=== PATIENT | male | born 1985 | race Caucasian/White ===

== ENCOUNTER 2022-12-21 00:25 | Inpatient (IN) | payer OTHER, SELFPAY ==
[2022-12-21] VITALS (18 sets, daily range): BP systolic 118–162; BP diastolic 68–114; PULSE 74–120; RESP 16–20; TEMP 36.6–37.7; O2SAT 92–100; BMI 23.6; BMI 25.2
--- NOTE | ~2022-12-21 | FL_ITS ---
PROCEDURE: IR JOINT ASPIRATION OF left hip CLINICAL INFORMATION: Left hip pain. Elevated white blood cell count. COMPARISON: Previous CT of the left femur and left hip x-ray from earlier the same day TECHNIQUE: Procedure and risks and benefits including bleeding and infection were discussed with the patient and informed consent was obtained. Left hip was prepped and draped in the usual sterile fashion. The skin and soft tissues were anesthetized with 1% lidocaine plain. Using fluoroscopic guidance and a 22-gauge spinal needle, access to the left hip joint was obtained. 1 mL of Omnipaque 300 was injected fluoroscopically confirming adequate placement in the joint space. Scant less than 1 mL of yellow clear fluid was removed. Diagnostic specimen was sent. FINDINGS: Images demonstrate needle placement and contrast injection of the left hip joint. FLUOROSCOPY TIME: 28 seconds. Total dose 24 mgy. DAP 77 dgray per centimeter squared. 1 saved fluoroscopic image FL/FL guided asp or inj major jt IMPRESSION: Fluoroscopy-guided left hip aspiration.
--- NOTE | ~2022-12-21 | XR_ITS ---
EXAMINATION: XR HIP, LEFT CLINICAL INFORMATION: Pain. COMPARISON: None available. TECHNIQUE: Two views of the left hip. FINDINGS: A left femoral mikel and proximal femoral screw are in place. There is no acute fracture. The left hip joint space is maintained. The soft tissues are unremarkable. XR/XR hip LT w PEL1V IMPRESSION: No significant abnormality identified..
--- NOTE | ~2022-12-21 | CT_ITS ---
EXAMINATION: CT FEMUR LT W IV CONTRAST CLINICAL INFORMATION: Pain. Concern for necrotizing fasciitis. COMPARISON: None available. TECHNIQUE: Contiguous axial images of the left femur performed after the administration of 85 mL of Omnipaque 300. This CT examination was performed using dose optimization techniques as appropriate, variously including the following: *Automated exposure control *Adjustment of mA and/or kV according to patient size (this includes techniques or standardized protocols for targeted exams where dose is matched to indication/reason for exam; i.e. extremities or head) *Use of iterative reconstruction technique DLP: 128 mGy-cm FINDINGS: There is a femoral mikel and proximal femoral screw in place. There is a healed distal femoral fracture. There is no acute fracture. There is a moderate left hip joint effusion. There is no fracture. The soft tissues are unremarkable. There is no subcutaneous emphysema significant edema. The visualized intrapelvic structures are unremarkable. CT/CT femur LT w IV con IMPRESSION: No acute osseous abnormality. No subcutaneous emphysema. There is a left hip joint effusion.
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
[2022-12-21] MEDS: Morphine Sulfate 4 MG/ML CARTRIDGE IVPUSH (01:32)
[2022-12-21] MEDS: diazePAM 10 MG/2 ML CARTRIDGE 2.5 MG IVPUSH (01:53)
[2022-12-21 02:11] LABS: MANUAL DIFF FLAG NO
[2022-12-21 02:13] LABS: Basophils Absolute Auto 0.1 X10*3/uL (0.0-0.2); Basophils Percent Auto 0.3 % (0-2); Eosinophils Percent Auto 0.1 % (0-4); Hematocrit 42.5 % (42.0-52.0); Hemoglobin 14.9 g/dl (14.0-18.0); Imm Gran Abs Auto 0.04 X10*3/uL (0.00-0.03); Imm Gran Pct Auto 0.3 % (0.0-0.4); Lymphocytes Absolute Auto 1.1 X10*3/uL (1.2-4.9); Mean Corpuscular HGB Conc 35.1 g/dl (31.0-36.0); Mean Corpuscular Hemoglobin 31.7 pg (27.0-33.0); Mean Corpuscular Volume 90.4 fL (80.0-98.0); Mean Platelet Volume 10.1 fL (9.4-12.4); Monocytes Percent Auto 6.2 % (2-11); Neutrophils Absolute Auto 13.2 x10*3/uL (2.0-8.3); Neutrophils Percent Auto 86.1 % (45-73); Platelet Count 261 X10*3/uL (160-400); Red Cell Distribution Width 13.1 % (11.0-16.0); White Blood Count 15.4 X10*3/uL (4.8-10.8)
[2022-12-21 02:27] LABS: Anion Gap 14 (12-20); Blood Urea Nitrogen 20 mg/dL (9-16); Calcium 10.1 mg/dL (8.4-10.2); Carbon Dioxide 21 mmol/L (22-29); Chloride 109 mmol/L (96-108); Estimated Glomerular Filt Rate > 60; Glucose Random 126 mg/dL (60-115); Sodium 140 mmol/L (135-145)
[2022-12-21 02:50] LABS: Erythrocyte Sedimentation Rate 7 MM/HR (0-15)
[2022-12-21] MEDS: diphenhydrAMINE HCL 50 MG/ML VIAL 25 MG IVPUSH (03:34)
[2022-12-21] MEDS: 0.9 % Sodium Chloride 1,000 ML 999 ML IV (03:34)
[2022-12-21] MEDS: HYDROmorphone HCl 1 MG/ML SYRINGE IVPUSH ×2 (03:35→07:49)
[2022-12-21] MEDS: iohexoL 350 MG/ML 100 ML INFUS..BTL 85 ML IV (04:19)
--- NOTE | 2022-12-21 04:47 | MHC.EDTECH ---
Hourly rounds and vitals completed,patient's blood pressure is elevated at 157/101 RN Melita was made aware. Call pereira at bedside
--- NOTE | 2022-12-21 07:35 | PC.NURSE ---
Assumed care of this patient at 0700. Patiently resting quietly in bed at this time. Consult to orthopedics placed. No apparent distress.
[2022-12-21 08:07] LABS: INTERNATIONAL NORM RATIO 1.1 (0.9-1.1); Prothrombin Time 13.3 SEC (11.1-13.3)
[2022-12-21 08:09] LABS: Partial Thromboplastin Time 29.8 SEC (26.0-36.4)
--- NOTE | 2022-12-21 08:16 | PC.NURSE ---
A & Ox4. c/o 08/12 pain in L hip, received 1mg IV Dilaudid per order. Tachycardia at 120. Pt resting in bed. No apparent distress.
--- NOTE | 2022-12-21 09:16 | MHC.EDTECH ---
pt belongings list completed.
--- NOTE | 2022-12-21 10:45 | PHA.MEDREC ---
Pharmacy Consult ? Medication Reconciliation Pharmacy has completed the medication reconciliation. Patient states he takes his Humira on Saturdays, last taken 12/12/22
[2022-12-21] MEDS: Ketorolac Tromethamine 30 MG/ML VIAL IVPUSH (11:05)
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
[2022-12-21] MEDS: HYDROmorphone HCl 0.5 MG/0.5 ML SYRINGE IVPUSH (12:59)
--- NOTE | 2022-12-21 13:10 | PC.NURSE ---
pt in 01/12 pain, Dilaudid given PRN per JUN. ruchi cath on, 200 ml output. bladder scan pending, both batteries were and are now charging
--- NOTE | 2022-12-21 13:46 | HO.RADPN ---
RADIOLOGY Narrative Narrative: Left hip aspirated using 22 g spinal needle. Scant less than 1 mL clear yellow fluid aspirated and sent to lab as ordered.
[2022-12-21 14:13] LABS: Monocytes Synovial Fluid 8 %; Neutrophils Synovial Fluid 92 %
[2022-12-21 14:14] LABS: BF Shift QC OK YES
[2022-12-21] MEDS: 0.9 % Sodium Chloride Flush 3 ML SYRINGE IVFLUSH ×2 (15:01→23:47)
--- NOTE | 2022-12-21 16:06 | PC.NURSE ---
straight catheter attempted after bladder scan shows 832 in bladder. cath was unsuccessful, cath coiled and would not advance. With associate artistic director here from [facility], pt will be transferred. Report with update given to Donna MONTERO
--- NOTE | 2022-12-21 16:21 | HO.ANESPROP2 ---
HPI - Anesthesia Eval Consult details Narrative: 36 M for left hip I and D . asthma , EtOH abuse , Crohn's disease [facility] Active Problems Active Problems: All Active Problems (Updated 12/21/22 @ 11:34 by ASHUTOSH Colunga) Effusion of hip joint, left (Acute) Left hip pain (Acute) Past Medical History Medical History Rheumatoid arthritis Asthma Crohn's disease Family History Family history of problems with anesthesia: No Surgical History History of Problems with Anesthesia: No Social History Social History Patient Tobacco Use Status: Never used Tobacco Smoked in Last 30 Days: No Use of substances other than those prescribed or required for medical reasons: No Substance Use Type: Marijuana Are you DNR?: No Advance Directives: No Advance Directives Information Provided: Yes Nutrition Risks: No Nutritional Risk Meds Allergies Allergy/AdvReac Type Severity Reaction Status Date / Time cefaclor [From [facility]] Allergy Unknown Rash Verified 12/21/22 01:12 Pertussis Vaccines Allergy Unknown Hives Verified 12/21/22 01:12 chlorine Allergy Unknown hives Uncoded 12/21/22 01:12 Active Medications: Current Medications Acetaminophen (Acetaminophen 325 Mg Tablet) 650 mg PO Q6H PRN PRN Reason: Pain, Mild (Pain Scale 1-3) Albuterol Sulfate (Albuterol Sulfate 90 Mcg 8 Gm Inhaler) 2 puff INHALE Q4H PRN PRN Reason: Shortness of Breath/Wheezing Docusate Sodium (Docusate Sodium 100 Mg Capsule) 100 mg PO DAILY PRN PRN Reason: Constipation Hydromorphone HCl (Hydromorphone Hcl 0.5 Mg/0.5 Ml Syringe) 0.5 mg IVPUSH Q4H PRN; Protocol PRN Reason: Pain, Severe (Pain Scale 7-10) Last Admin: 12/21/22 12:59 Dose: 0.5 mg Non-Formulary Medication (Adalimumab [Humira(Cf) Pen]) 40 mg SUBCUT Q2W CHET Ondansetron HCl (Ondansetron Hcl 4 Mg/2 Ml Vial) 4 mg IVPUSH Q8H PRN PRN Reason: Nausea and Vomiting Oxycodone HCl (Oxycodone Hcl Immed Release 5 Mg Tablet) 5 mg PO Q6H PRN PRN Reason: Pain, Moderate(Pain Scale 4-6) Sodium Chloride (0.9 % Sodium Chloride Flush 3 Ml Syringe) [facility] Last Admin: 12/21/22 15:01 Dose: 3 ml Home Medications Medication Instructions Recorded Confirmed Last Taken Type acetaminophen 325 mg tablet 650 mg PO Q6H PRN Pain 12/21/22 12/21/22 Unknown History adalimumab 40 mg/0.4 mL 40 mg subcut Q2W 12/21/22 12/21/22 12/12/22 History subcutaneous pen kit (Humira(CF) Pen) ibuprofen 400 mg tablet 400 mg PO Q6H PRN Pain (Scale 12/21/22 12/21/22 Unknown History Score 1-3) oxymetazoline 0.05 % nasal spray 2 spray intranasal Q12H PRN Nasal 12/21/22 12/21/22 Unknown History Congestion Exam Exam Date and Time: December 21, 2022 1621 Height,Weight and Vital Signs: Height 5 ft 9 in Weight 72.575 kg Last Vital Signs Temp 98.9 F 12/21/22 15:01 Pulse 77 12/21/22 15:01 Resp 16 12/21/22 15:01 BP 141/86 H 12/21/22 15:01 Pulse Ox 95 12/21/22 15:01 O2 Del Method Room Air 12/21/22 15:01 Pertinent Lab Results Pertinent Lab Results: Laboratory Tests 12/21/22 12/21/22 12/21/22 02:06 02:07 07:56 WBC 15.4 H RBC 4.70 Hgb 14.9 Hct 42.5 MCV 90.4 MCH 31.7 MCHC 35.1 RDW 13.1 Plt Count 261 MPV 10.1 Immature Gran % (Auto) 0.3 Neut % (Auto) 86.1 H Lymph % (Auto) 7.0 L Dent % (Auto) 6.2 Eos % (Auto) 0.1 Baso % (Auto) 0.3 Lymph # (Auto) 1.1 L Dent # (Auto) 1.0 Eos # (Auto) 0.0 Baso # (Auto) 0.1 Abs Immat Gran (auto) 0.04 H Absolute Neuts (auto) 13.2 H Absolute Nucleated RBC 0.000 Nucleated RBC % (auto) 0.0 ESR 7 PT 13.3 INR 1.1 APTT 29.8 Sodium 140 Potassium 4.0 Chloride 109 H Carbon Dioxide 21 L Anion Gap 14 BUN 20 H Creatinine 1.16 Estim Creat Clear Calc 88.0 Estimated GFR > 60 Random Glucose 126 H Calcium 10.1 C-Reactive Protein 3.10 H Fl Pathologist Review Synovial Source Synovial WBC Synovial RBC Synovial Neutrophils Synovial Monocytes Synovial Glucose Synovial Lyme DNA (PCR) Lyme (Rapid PCR) Src 12/21/22 12/21/22 12:40 Unknown WBC RBC Hgb Hct MCV MCH MCHC RDW Plt Count MPV Immature Gran % (Auto) Neut % (Auto) Lymph % (Auto) Dent % (Auto) Eos % (Auto) Baso % (Auto) Lymph # (Auto) Dent # (Auto) Eos # (Auto) Baso # (Auto) Abs Immat Gran (auto) Absolute Neuts (auto) Absolute Nucleated RBC Nucleated RBC % (auto) ESR PT INR APTT Sodium Potassium Chloride Carbon Dioxide Anion Gap BUN Creatinine Estim Creat Clear Calc Estimated GFR Random Glucose Calcium C-Reactive Protein Fl Pathologist Review SEE NOTE Synovial Source left hip Synovial WBC TNP Synovial RBC TNP Synovial Neutrophils 92 Synovial Monocytes 8 Synovial Glucose TNP Synovial Lyme DNA (PCR) TNP Lyme (Rapid PCR) Src TNP Airway Mallampati Class: III Loose/Missing/Broken Teeth: Yes (poor dentition overall , chipped teeth multiple) Assessment and Plan Assessment Anesthesia Assessment: Anesthesia Plan Discussed and Chart Reviewed Final Anesthetic Review Family History of Problems with Anesthesia: No History of Problems with Anesthesia: No NPO: Yes ASA Class: III and Emergency Final Preanesthetic Review: Meds/Allgs Chart Reviewed, Consent Obtained/Reviewed and Anes Risks/Benef Reviewed Patient Risk: Intermediate Procedure Risk: Intermediate Anesthetic Plan Anesthetic Plan: GA and Agree w/ Assess. and Plan Disposition: Standard PACU
--- NOTE | 2022-12-21 16:27 | MHC.SHP ---
Pre-Procedural Eval Section A Date of Service: 12/21/22 The patient is an INPATIENT: Yes Changes since office visit: No Cold of Flu in the past 2 weeks, No New Medical Problems, No Changes in Medication and No Patient answered all questions The History & Physical has been completed within 30 days and I have reviewed it.: Yes Section B Chief Complaint: join effusion, ?sepsis Allergies: Allergies Allergy/AdvReac Type Severity Reaction Status Date / Time cefaclor [From Ceclor] Allergy Unknown Rash Verified 12/21/22 01:12 Pertussis Vaccines Allergy Unknown Hives Verified 12/21/22 01:12 chlorine Allergy Unknown hives Uncoded 12/21/22 01:12 Plan I have reviewed the history and physical and performed a pertinent physical examination on my patient. No changes have occurred unless specified. Time Spent With Patient Time: Total time managing care of this patient today ____ minutes.
--- NOTE | 2022-12-21 16:29 | P.HPOP_ITS ---
History of Present Illness History of Present Illness Date of Service: 12/21/22 Chief complaint: join effusion, ?sepsis Narrative: Sky Be is a 36 year old male with a 48 hour h/o left hip pain. He presents with inability to ambulate, pain and taccycardia. He denies injury. His pain localizes to his left anterior hip. Review of Systems 2 Constitutional: Constitutional: Reports as per HPI Eyes: Eyes: Reports no additional eye complaints ENT: Reports system reviewed and no additional complaints, except as documented Cardiovascular: Cardiovascular: Reports no additional cardiovascular complaints Respiratory: Respiratory: Reports no additional respiratory complaints Gastrointestinal: Comments: Crohn's [facility] Past Medical History Medical History Rheumatoid arthritis Asthma Crohn's disease Social History Social History Patient Tobacco Use Status: Never used Tobacco Smoked in Last 30 Days: No Use of substances other than those prescribed or required for medical reasons: No Substance Use Type: Marijuana Advance Directives: No Advance Directives Information Provided: Yes Nutrition Risks: No Nutritional Risk Meds Allergies Allergy/AdvReac Type Severity Reaction Status Date / Time cefaclor [From Ceclor] Allergy Unknown Rash Verified 12/21/22 01:12 Pertussis Vaccines Allergy Unknown Hives Verified 12/21/22 01:12 chlorine Allergy Unknown hives Uncoded 12/21/22 01:12 Active Medications: Current Medications Acetaminophen (Acetaminophen 325 Mg Tablet) 650 mg PO Q6H PRN PRN Reason: Pain, Mild (Pain Scale 1-3) Albuterol Sulfate (Albuterol Sulfate 90 Mcg 8 Gm Inhaler) 2 puff INHALE Q4H PRN PRN Reason: Shortness of Breath/Wheezing Docusate Sodium (Docusate Sodium 100 Mg Capsule) 100 mg PO DAILY PRN PRN Reason: Constipation Hydromorphone HCl (Hydromorphone Hcl 0.5 Mg/0.5 Ml Syringe) 0.5 mg IVPUSH Q4H PRN; Protocol PRN Reason: Pain, Severe (Pain Scale 7-10) Last Admin: 12/21/22 12:59 Dose: 0.5 mg Non-Formulary Medication (Adalimumab [Humira(Cf) Pen]) 40 mg SUBCUT Q2W CHET Ondansetron HCl (Ondansetron Hcl 4 Mg/2 Ml Vial) 4 mg IVPUSH Q8H PRN PRN Reason: Nausea and Vomiting Oxycodone HCl (Oxycodone Hcl Immed Release 5 Mg Tablet) 5 mg PO Q6H PRN PRN Reason: Pain, Moderate(Pain Scale 4-6) Sodium Chloride (0.9 % Sodium Chloride Flush 3 Ml Syringe) 3 ml IVFLUSH QSHIFT [facility] Last Admin: 12/21/22 15:01 Dose: 3 ml Home Medications Medication Instructions Recorded Confirmed Last Taken Type acetaminophen 325 mg tablet 650 mg PO Q6H PRN Pain 12/21/22 12/21/22 Unknown History adalimumab 40 mg/0.4 mL 40 mg subcut Q2W 12/21/22 12/21/22 12/12/22 History subcutaneous pen kit (Humira(CF) Pen) ibuprofen 400 mg tablet 400 mg PO Q6H PRN Pain (Scale 12/21/22 12/21/22 Unknown History Score 1-3) oxymetazoline 0.05 % nasal spray 2 spray intranasal Q12H PRN Nasal 12/21/22 12/21/22 Unknown History Congestion Physical Exam 2 Vital Signs: Vital Signs: Last Vital Signs Temp 98.9 F 12/21/22 15:01 Pulse 77 12/21/22 15:01 Resp 16 12/21/22 15:01 BP 141/86 H 12/21/22 15:01 Pulse Ox 95 12/21/22 15:01 O2 Del Method Room Air 12/21/22 15:01 BMI result Body Mass Index 23.6 Const: General: cooperative, healthy appearing, no acute distress, well developed and alert HEENT: Head: Yes normal to inspection, Yes normocephalic and Yes atraumatic Mouth: moist mucous membranes Eyes: General: appearance normal, both eyes and all related structures EOM: EOMs intact bilaterally Chest: Other: no audible wheezing. Resp: Other: No audible wheezing Effort & Inspection: normal respiratory effort Cardio: Other: Radial pulse palpable with no rythmic abnormalities Back/Spine/Pelvis: Cervical Spine: normal cervical lordosis Skin: General skin exam: no rashes or lesions noted Neuro: General: no focal motor deficits Extrem: Other: Externally rotated left hip exquisite pain with log roll cannot flex hip without severe pain Psych: Appearance: grossly normal and well kempt Mental Status: mental status grossly normal Speech and movement: Normal speech and movement present Affect: normal affect Attitude: cooperative Results Labs 12/21/22 02:07 12/21/22 02:06 Labs: Abnormal lab results 12/21/22 12/21/22 Range/Units 02:06 02:07 WBC 15.4 H (4.8-10.8) X10*3/uL Neut % (Auto) 86.1 H (45-73) % Lymph % (Auto) 7.0 L (20-40) % Lymph # (Auto) 1.1 L (1.2-4.9) X10*3/uL Abs Immat Gran (auto) 0.04 H (0.00-0.03) X10*3/uL Absolute Neuts (auto) 13.2 H (2.0-8.3) x10*3/uL Chloride 109 H (96-108) mmol/L Carbon Dioxide 21 L (22-29) mmol/L BUN 20 H (9-16) mg/dL Random Glucose 126 H (60-115) mg/dL C-Reactive Protein 3.10 H (< or = 0.50) mg/dL H & H 12/21/22 Range/Units 02:07 Hgb 14.9 (14.0-18.0) g/dl Hct 42.5 (42.0-52.0) % Coagulation 12/21/22 Range/Units 07:56 INR 1.1 (0.9-1.1) All other labs normal. Diagnostic results Hip CT: image reviewed (left hip effusion) Assessment and Plan (1) Effusion of hip joint, left: Status: Acute Plan I reviewed aspiration and labs. Reported PMNs of 92% with no cell count available. He has elevated WBC and CRP but ESR nl. Cannot exclude bacterial infection and benefits of surgery outweigh risks. I recommend incision and drainage with arthrotomy left hip. I discussed the risks benefits and alternatives including but not limited to the risk of pain, nerve injury, infection, stiffness, need for further surgery as well as potential medical complications. Patient expressed understanding and we will proceed forward accordingly. Time Spent With Patient Time: Total time managing care of this patient today ____ minutes. Quality Stroke Does the patient have a stroke diagnosis?: No VTE Prior VTE?: No VTE Risk Level:: Medical - moderate - high VTE Device Contraindication: N/A - Device Ordered VTE Drug Contraindication: Treatment Not Indicated Procedures Date of Service Date of Service: 12/21/22
--- NOTE | 2022-12-21 17:52 | PM.OP ---
Brief Operative Note Date of Service: 12/21/22 Pre-op diagnosis: Septic left hip Post-op diagnosis: same Procedure: Incision and drainage left hip Implants: 7F GIANNI drain Surgeon: Amari Lund MD Anesthesia: GLMA and local Was an Paid Search Manager used for this Procedure?: No Estimated blood loss (mL): 25 IV fluids (mL): 750 Pathology: other Condition: stable Disposition: PACU
[2022-12-21] MEDS: Acetaminophen 1,000 MG/100 ML PIGGYBACK 400 MG IV (18:12)
[2022-12-21] MEDS: vancomycin/NS 2,000 MG/500 ML PLAST..BAG 250 MG IV (19:55)
[2022-12-21 20:30] LABS: Appearance Urine Clear; Color Urine Yellow; Glucose Urine UA Negative (Negative); Leukocyte Esterase Urine Negative (Negative); Nitrite Urine Negative (Negative); Specific Gravity - Urine >= 1.030 (1.005-1.025); UMIC TRIGGER UACC YES; Urine Blood Trace (Negative); Urine Ketones Negative (Negative); Urine Protein Trace mg/dL (Neg-Trace)
[2022-12-21 20:35] LABS: Amphetamine Screen Urine Not Detected (Not Detect); Barbiturates, Urine Not Detected (Not Detect); Benzodiazepines Screen Urine POSITIVE (Not Detect); Cannabinoid Screen Urine Not Detected (Not Detect); Cocaine Screen Urine Not Detected (Not Detect); Fentanyl, urine POSITIVE (Not Detect); Opiate Screen Urine POSITIVE (Not Detect); Phencyclidine Screen Urine Not Detected (Not Detect)
[2022-12-21 20:36] LABS: Bacteria Urine None Seen (None Seen); Hyaline Casts Urine 0-2 /LPF (0-2); Squamous Epithelial Cell Urine 0-2 /HPF (0-2); WBC Urine 0-5 /HPF (0-5)
[2022-12-21 21:55] LABS: Vancomycin Trough 62.4 mcg/mL (10.0-20.0)
[2022-12-21] MEDS: oxyCODONE HCl Immed Release 5 MG TABLET PO (23:58)
[2022-12-22 03:27] VITALS: BP 129/73; PULSE 74; RESP 18; TEMP 38.5; O2SAT 97
[2022-12-22] MEDS: Acetaminophen 325 MG TABLET 650 MG PO ×2 (03:30→09:47)
[2022-12-22] MEDS: HYDROmorphone HCl 0.5 MG/0.5 ML SYRINGE IVPUSH ×3 (03:37→15:50)
[2022-12-22 05:30] VITALS: TEMP 36.8
[2022-12-22 06:31] LABS: Alanine Aminotransferase 45 U/L (0-40); Albumin Level 3.4 g/dL (3.5-5.0); Alkaline Phosphatase 29 U/L (39-117); Anion Gap 13 (12-20); Aspartate Amino Transferase 32 U/L (5-37); Bilirubin Total 1.1 mg/dL (0.0-1.0); Blood Urea Nitrogen 13 mg/dL (9-16); Carbon Dioxide 22 mmol/L (22-29); Chloride 107 mmol/L (96-108); Creatinine Clr Calc Pharmacy 114.7; Estimated Glomerular Filt Rate > 60; Glucose Random 96 mg/dL (60-115); Potassium 4.2 mmol/L (3.3-5.1); Sodium 138 mmol/L (135-145); Total Protein 6.1 g/dL (6.5-8.0)
[2022-12-22] MEDS: 0.9 % Sodium Chloride Flush 3 ML SYRINGE IVFLUSH ×2 (07:23→14:44)
[2022-12-22 07:49] VITALS: BP 124/85; PULSE 93; RESP 16; TEMP 37.3; O2SAT 96
--- NOTE | 2022-12-22 08:01 | PM.PNORT ---
Subjective Subjective Date of Service: 12/22/22 Interval history: POD 1 s/p LEft hip open I&D no overnight events resting in bed denies cp, palpitations, sob Physical Exam Vital Signs: Vital Signs: Last Vital Signs Temp 99.1 F 12/22/22 07:49 Pulse 93 12/22/22 07:49 Resp 16 12/22/22 07:49 BP 124/85 12/22/22 07:49 Pulse Ox 96 12/22/22 07:49 O2 Del Method Room Air 12/22/22 07:49 O2 Flow Rate 2 12/21/22 20:00 BMI result Body Mass Index 25.2 Const: General: cooperative, healthy appearing and no acute distress Resp: Effort & Inspection: normal respiratory effort and able to speak in complete sentences Cardio: Rate: regular rate Peripheral pulses: Peripheral pulses 2+ throughout GI: Palpation (GI): Soft to palpation Skin: General skin exam: no rashes or lesions noted Extrem: Other: left hip pain with log roll, unable to SLR, able to dorsi and plantar felx, nvi Procedures Date of Service Date of Service: 12/22/22 Progress Note: A&P Assessment and plan (1) Effusion of hip joint, left: Status: Acute Assessment and Plan: cont pain mgmnt cont abx pending cultures PT for gentle wbat dispo pending labs Time Spent With Patient Time: Total time managing care of this patient today ____ minutes. Quality Stroke Does the patient have a stroke diagnosis?: No VTE Prior VTE?: No VTE Risk Level:: Medical - moderate - high VTE Device Contraindication: N/A - Device Ordered VTE Drug Contraindication: Treatment Not Indicated
[2022-12-22] MEDS: vancomycin HCL 1,250 MG in 0.9 % Sodium Chloride 250 ML 166.67 MG IV ×2 (08:04→21:03)
[2022-12-22] MEDS: oxyCODONE HCl Immed Release 5 MG TABLET PO ×3 (08:05→22:43)
--- NOTE | 2022-12-22 10:59 | PC.NURSE ---
christian cath removed at 1100 pt dtv at 1700
--- NOTE | 2022-12-22 11:43 | HO.POSTANES ---
Post Anesthesia Evaluation Post Anesthesia Evaluation Date of Service: 12/22/22 Vital Signs: Vital Signs Temp Pulse Resp BP Pulse Ox O2 Del Method 12/22/22 07:49 99.1 F 93 16 124/85 96 Room Air 12/22/22 05:30 98.2 F 12/22/22 03:27 101.3 F H 74 18 129/73 97 Room Air 12/21/22 23:51 97.9 F 111 H 18 139/89 98 Nasal Cannula Anesthesia: General Mental Status: Awake Pain Control: Satisfactory Nausea/Vomiting: None Hydration: Adequate Anesthesia-Related Issues: No Anes. Related Issues
--- NOTE | 2022-12-22 12:04 | MHC.CM.PN ---
CM MET WITH PT AT BEDSIDE. INDEPENDENT AND WORKS F/T FROM HOME. +COVID [facility] NO HCP, WILLING TO DO ONE NO PCP, [facility] BROCHURE PROVIDED. DP: HOME, NO SERVICES ANTICIPATED. WILL NEED SHUTTLE/LYFT RIDE HOME. CM WILL CONTINUE TO FOLLOW FOR ANY CHANGE IN DC NEEDS/PLAN.
--- NOTE | 2022-12-22 14:08 | PM.UROCN ---
History of Present Illness Consult details Consult date: 12/22/22 Narrative: Called for urinary retention Shun is a 36 year old male history of rheumatoid arthritis, Crohns, on immunospressive meds, sp I and D left hip 12/21/22, needed christian for urinary retention post op. Pt denies problems with urination in the past. Denies dysuria, hematuria, urgency. Voiding trial this afternoon, pt voided 350 mL. Bladder scan PVR 7 mL Urinary retention post ortho procedure likely related to pain meds/anesthesia. FU prn Review of Systems Review of Systems: 10 point ROS negative other than stated in HPI [facility] Past Medical History Medical History Rheumatoid arthritis Asthma Crohn's disease Social History Social History Household Members: None Housing: Apartment Do you presently have visiting nurse or other home services: No Patient Tobacco Use Status: Never used Tobacco Substance Use Type: Marijuana service: No Meds Allergies Allergy/AdvReac Type Severity Reaction Status Date / Time cefaclor [From Ceclor] Allergy Unknown Rash Verified 12/21/22 01:12 Pertussis Vaccines Allergy Unknown Hives Verified 12/21/22 01:12 chlorine Allergy Unknown hives Uncoded 12/21/22 01:12 Active Medications: Current Medications Acetaminophen (Acetaminophen 325 Mg Tablet) 650 mg PO Q6H PRN PRN Reason: Pain, Mild (Pain Scale 1-3) Last Admin: 12/22/22 09:47 Dose: 650 mg Albuterol Sulfate (Albuterol Sulfate 90 Mcg 8 Gm Inhaler) 2 puff INHALE Q4H PRN PRN Reason: Shortness of Breath/Wheezing Docusate Sodium (Docusate Sodium 100 Mg Capsule) 100 mg PO DAILY PRN PRN Reason: Constipation Hydromorphone HCl (Hydromorphone Hcl 0.5 Mg/0.5 Ml Syringe) 0.5 mg IVPUSH Q4H PRN; Protocol PRN Reason: Pain, Severe (Pain Scale 7-10) Last Admin: 12/22/22 09:47 Dose: 0.5 mg Hydromorphone HCl (Hydromorphone Hcl 0.5 Mg/0.5 Ml Syringe) 0.25 mg IVPUSH Q5M PRN; Protocol PRN Reason: Pain, Severe (Pain Scale 7-10) Vancomycin HCl 1,250 mg/ (Sodium Chloride) 250 mls @ 166.667 mls/hr IV Q12H [facility] Last Infusion: 12/22/22 09:47 Dose: Infused Non-Formulary Medication (Adalimumab [Humira(Cf) Pen]) 40 mg SUBCUT Q2W CHET Ondansetron HCl (Ondansetron Hcl 4 Mg/2 Ml Vial) 4 mg IVPUSH Q8H PRN PRN Reason: Nausea and Vomiting Oxycodone HCl (Oxycodone Hcl Immed Release 5 Mg Tablet) 5 mg PO Q6H PRN PRN Reason: Pain, Moderate(Pain Scale 4-6) Last Admin: 12/22/22 08:05 Dose: 5 mg Pharmacy Consult (Consult Rx Vancomycin Dosing) 1 each MISCELLANE DAILY PRN PRN Reason: Consult order Sodium Chloride (0.9 % Sodium Chloride Flush 3 Ml Syringe) 3 ml IVFLUSH QSHIFT [facility] Last Admin: 12/22/22 07:23 Dose: 3 ml Home Medications Medication Instructions Recorded Confirmed Last Taken Type acetaminophen 325 mg tablet 650 mg PO Q6H PRN Pain 12/21/22 12/21/22 Unknown History adalimumab 40 mg/0.4 mL 40 mg subcut Q2W 12/21/22 12/21/22 12/12/22 History subcutaneous pen kit (Humira(CF) Pen) ibuprofen 400 mg tablet 400 mg PO Q6H PRN Pain (Scale 12/21/22 12/21/22 Unknown History Score 1-3) oxymetazoline 0.05 % nasal spray 2 spray intranasal Q12H PRN Nasal 12/21/22 12/21/22 Unknown History Congestion Physical Exam Vital Signs: Vital Signs: Last Vital Signs Temp 99.1 F 12/22/22 07:49 Pulse 93 12/22/22 07:49 Resp 16 12/22/22 07:49 BP 124/85 12/22/22 07:49 Pulse Ox 96 12/22/22 07:49 O2 Del Method Room Air 12/22/22 07:49 O2 Flow Rate 2 12/21/22 20:00 BMI result Body Mass Index 25.2 Const: General: healthy appearing, no acute distress and well developed Orientation/consciousness: patient oriented x3 HEENT: Head: Yes normocephalic and Yes atraumatic Eyes: Conjunctivae: conjunctivae normal Neck: Neck: Yes normal visual inspection Chest: Chest palpation & inspection: normal inspection of the chest Resp: Effort & Inspection: normal respiratory effort Cardio: Rate: regular rate GI: Inspection: Yes normal to inspection Palpation (GI): Soft to palpation Skin: General skin exam: no rashes or lesions noted Neuro: General: patient oriented x3 Extrem: General: No pedal edema Psych: Appearance: grossly normal Affect: normal affect Results Labs 12/21/22 02:07 12/22/22 05:35 Labs: Abnormal lab results 12/21/22 12/21/22 12/22/22 Range/Units 20:10 21:32 05:35 Total Bilirubin 1.1 H (0.0-1.0) mg/dL ALT 45 H (0-40) U/L Alkaline Phosphatase 29 L (39-117) U/L Total Protein 6.1 L (6.5-8.0) g/dL Albumin 3.4 L (3.5-5.0) g/dL Ur Specific Breeding >= 1.030 H (1.005-1.025) Urine Blood Trace H (Negative) Urine RBC 3-5 H (0-2) /HPF Vancomycin Trough 62.4 H* (10.0-20.0) mcg/mL Urine Opiates Screen POSITIVE H (Not Detect) Urine Fentanyl Screen POSITIVE H (Not Detect) U Benzodiazepines Scrn POSITIVE H (Not Detect) BMP 12/22/22 05:35 Sodium 138 Potassium 4.2 Chloride 107 Carbon Dioxide 22 BUN 13 Creatinine 0.89 Calcium 9.0 D Liver Function 12/22/22 Range/Units 05:35 Total Bilirubin 1.1 H (0.0-1.0) mg/dL AST 32 (5-37) U/L ALT 45 H (0-40) U/L Alkaline Phosphatase 29 L (39-117) U/L Albumin 3.4 L (3.5-5.0) g/dL Urine 12/21/22 Range/Units 20:10 Urine Color Yellow Urine Appearance Clear Urine pH 6.0 (5.0-9.0) Ur Specific Breeding >= 1.030 H (1.005-1.025) Urine Protein Trace (Neg-Trace) mg/dL Urine Glucose (UA) Negative (Negative) mg/dL All other labs normal. Assessment and Plan (1) Urinary retention: Status: Acute Plan Urinary retention post ortho procedure likely related to pain meds/anesthesia. FU prn Time Spent With Patient Time: Total time managing care of this patient today ____ minutes. Procedures Date of Service Date of Service: 12/22/22
--- NOTE | 2022-12-22 14:17 | P.PNIM_ITS ---
Subjective Subjective Date of Service: 12/22/22 Interval History: Pain control adequate. No acute issues postop Review of Systems Denies chest pain Denies shortness of breath Denies nausea vomiting diarrhea Denies fever chills Physical Exam 2 Vital Signs: Vital Signs: Last Vital Signs Temp 99.1 F 12/22/22 07:49 Pulse 93 12/22/22 07:49 Resp 16 12/22/22 07:49 BP 124/85 12/22/22 07:49 Pulse Ox 96 12/22/22 07:49 O2 Del Method Room Air 12/22/22 07:49 O2 Flow Rate 2 12/21/22 20:00 BMI result Body Mass Index 25.2 Const: Other: No acute distress Resp: Other: Clear to auscultation bilaterally no rales rhonchi or wheezes Cardio: Other: No S4; positive S1-S2; no S3 murmurs rubs or gallops GI: Other: Soft nontender nondistended normoactive bowel sounds Neuro: Other: Cranial nerves 2-12 grossly intact as tested. Motor is 5/5 all extremities. Sensation is intact. Cognition appropriate Extrem: Other: No edema bilaterally. Left hip dressing clean dry intact Objective Data Active Medications Acetaminophen (Acetaminophen 325 Mg Tablet) 650 mg PO Q6H PRN PRN Reason: Pain, Mild (Pain Scale 1-3) Last Admin: 12/22/22 09:47 Dose: 650 mg Documented By: TOMÁS Albuterol Sulfate (Albuterol Sulfate 90 Mcg 8 Gm Inhaler) 2 puff INHALE Q4H PRN PRN Reason: Shortness of Breath/Wheezing Docusate Sodium (Docusate Sodium 100 Mg Capsule) 100 mg PO DAILY PRN PRN Reason: Constipation Hydromorphone HCl (Hydromorphone Hcl 0.5 Mg/0.5 Ml Syringe) 0.5 mg IVPUSH Q4H PRN; Protocol PRN Reason: Pain, Severe (Pain Scale 7-10) Last Admin: 12/22/22 09:47 Dose: 0.5 mg Documented By: TOMÁS Hydromorphone HCl (Hydromorphone Hcl 0.5 Mg/0.5 Ml Syringe) 0.25 mg IVPUSH Q5M PRN; Protocol PRN Reason: Pain, Severe (Pain Scale 7-10) Vancomycin HCl 1,250 mg/ (Sodium Chloride) 250 mls @ 166.667 mls/hr IV Q12H [facility] Last Infusion: 12/22/22 09:47 Dose: Infused Documented By: JOSE Non-Formulary Medication (Adalimumab [Humira(Cf) Pen]) 40 mg SUBCUT Q2W CHET Ondansetron HCl (Ondansetron Hcl 4 Mg/2 Ml Vial) 4 mg IVPUSH Q8H PRN PRN Reason: Nausea and Vomiting Oxycodone HCl (Oxycodone Hcl Immed Release 5 Mg Tablet) 5 mg PO Q6H PRN PRN Reason: Pain, Moderate(Pain Scale 4-6) Last Admin: 12/22/22 08:05 Dose: 5 mg Documented By: TOMÁS Pharmacy Consult (Consult Rx Vancomycin Dosing) 1 each MISCELLANE DAILY PRN PRN Reason: Consult order Sodium Chloride (0.9 % Sodium Chloride Flush 3 Ml Syringe) 3 ml IVFLUSH QSHIFT [facility] Last Admin: 12/22/22 07:23 Dose: 3 ml Documented By: JOSE Labs 12/21/22 02:07 12/22/22 05:35 Labs: Laboratory Results - last 24 hr 12/21/22 12/21/22 12/21/22 12:40 20:10 21:32 Anion Gap Estim Creat Clear Calc Estimated GFR Random Glucose Calcium Total Bilirubin AST ALT Alkaline Phosphatase Total Protein Albumin Urine Color Yellow Urine Appearance Clear Urine pH 6.0 Ur Specific [place] >= 1.030 H Urine Protein Trace Urine Glucose (UA) Negative Urine Ketones Negative Urine Blood Trace H Urine Nitrite Negative Ur Leukocyte Esterase Negative Urine RBC 3-5 H Urine WBC 0-5 Ur Squamous Epith Cells 0-2 Urine Bacteria None Seen Hyaline Casts 0-2 Fl Pathologist Review Synovial Source left hip Synovial WBC TNP TNP Synovial RBC TNP TNP Synovial Neutrophils 92 TNP Synovial Lymphocytes TNP Synovial Monocytes 8 TNP Synovial Basophils TNP Synovial Eosinophils TNP Synovial Other Cells TNP Vancomycin Trough 62.4 H* Urine Opiates Screen POSITIVE H Urine Fentanyl Screen POSITIVE H Ur Barbiturates Screen Not Detected Ur Phencyclidine Scrn Not Detected Ur Amphetamines Screen Not Detected U Benzodiazepines Scrn POSITIVE H Urine Cocaine Screen Not Detected U Marijuana (THC) Screen Not Detected 12/21/22 12/22/22 Unknown 05:35 Anion Gap 13 Estim Creat Clear Calc 114.7 Estimated GFR > 60 Random Glucose 96 Calcium 9.0 D Total Bilirubin 1.1 H AST 32 ALT 45 H Alkaline Phosphatase 29 L Total Protein 6.1 L Albumin 3.4 L Urine Color Urine Appearance Urine pH Ur Specific [place] Urine Protein Urine Glucose (UA) Urine Ketones Urine Blood Urine Nitrite Ur Leukocyte Esterase Urine RBC Urine WBC Ur Squamous Epith Cells Urine Bacteria Hyaline Casts Fl Pathologist Review SEE NOTE Synovial Source Synovial WBC Synovial RBC Synovial Neutrophils Synovial Lymphocytes Synovial Monocytes Synovial Basophils Synovial Eosinophils Synovial Other Cells Vancomycin Trough Urine Opiates Screen Urine Fentanyl Screen Ur Barbiturates Screen Ur Phencyclidine Scrn Ur Amphetamines Screen U Benzodiazepines Scrn Urine Cocaine Screen U Marijuana (THC) Screen Microbiology Microbiology Results: Microbiology 12/21/22 Unknown Gram Stain - Final Hip - Hip Anaerobic Culture - Preliminary No growth to date. 12/21/22 Unknown Gram Stain - Final Hip Left Routine Culture - Preliminary No growth to date. 12/21/22 08:41 Blood Culture - Preliminary Blood - Venous No growth after 24 hours. 12/21/22 08:14 Blood Culture - Preliminary Blood - Venous No growth after 24 hours. 12/21/22 Unknown Gram Stain - Final Hip aspirate Anaerobic Culture - Final Gross Specimen Examination - Final Fluid Crystals - Final Joint Fluid Culture - Final Assessment and Plan (1) Effusion of hip joint, left: Status: Acute (2) Urinary retention: Status: Acute (3) Rheumatoid arthritis: Status: Acute Plan 36-year-old male with history of Crohn's disease, possible rheumatoid arthritis, and mild intermittent asthma admitted for joint effusion meeting sirs criteria with intractable pain; taken to OR by Orthopedics. See procedure note for detail 1.Left-sided hip effusion -taken to OR by Orthopedics; I&D left hip done without issue -pain control adequate -continue vanco pending cultures 2.Urinary retention -likely secondary to anesthesia/pain meds -voiding trial complete -appreciate urology input 3.Mild intermittent asthma -no acute exacerbation -albuterol p.r.n. 4.Crohn's disease -no acute flare -not due for Humira until Wednesday DVT prophylaxis- SCPs Full code Requires ongoing hospitalization for IV antibiotic pending cultures Time Spent With Patient Time: Total time managing care of this patient today ____ minutes. Quality Stroke Does the patient have a stroke diagnosis?: No VTE Prior VTE?: No VTE Risk Level:: Medical - moderate - high VTE Device Contraindication: N/A - Device Ordered VTE Drug Contraindication: Treatment Not Indicated
[2022-12-22 15:12] VITALS: BP 123/75; PULSE 109; RESP 20; TEMP 38.1; O2SAT 93
[2022-12-22 18:40] LABS: Vancomycin Random 10.4 mcg/mL (15-20)
[2022-12-22 19:10] VITALS: BP 123/79; PULSE 107; RESP 20; TEMP 36.9; O2SAT 94
[2022-12-23] MEDS: 0.9 % Sodium Chloride Flush 3 ML SYRINGE IVFLUSH ×4 (00:55→19:15)
[2022-12-23 02:29] VITALS: BP 114/70; PULSE 89; RESP 18; TEMP 36.7; O2SAT 98
[2022-12-23] MEDS: oxyCODONE HCl Immed Release 5 MG TABLET PO ×2 (06:10→11:52)
[2022-12-23 06:48] LABS: Creatinine Clr Calc Pharmacy 113.4; Estimated Glomerular Filt Rate > 60
[2022-12-23] MEDS: vancomycin HCL 1,250 MG in 0.9 % Sodium Chloride 250 ML 166.67 MG IV (07:31)
--- NOTE | 2022-12-23 07:38 | PM.PNORT ---
Subjective Subjective Date of Service: 12/23/22 Interval history: POD1 s/p left hip I&D Patient is resting in bed comfortably No overnight events Pain is managed No additional complaints Physical Exam Vital Signs: Vital Signs: Last Vital Signs Temp 98.1 F 12/23/22 02:29 Pulse 89 12/23/22 02:29 Resp 18 12/23/22 02:29 BP 114/70 12/23/22 02:29 Pulse Ox 98 12/23/22 02:29 O2 Del Method Room Air 12/23/22 02:29 O2 Flow Rate 2 12/21/22 20:00 BMI result Body Mass Index 25.2 Const: General: cooperative, healthy appearing and no acute distress Resp: Effort & Inspection: normal respiratory effort and able to speak in complete sentences Cardio: Rate: regular rate Peripheral pulses: Peripheral pulses 2+ throughout GI: Palpation (GI): Soft to palpation Skin: Lesions: no lesions Rashes: no rashes Extrem: Other: Left hip dressing is c/d/i. Able to dorsi/plantar flex. Calf is supple and nontender. Sensation intact. Pedal pulse intact. Drain pulled at bedside New dressings applied Procedures Date of Service Date of Service: 12/23/22 Progress Note: A&P Assessment and plan (1) Effusion of hip joint, left: Status: Acute Plan Continue pain mgmnt begin PT for left hip s/p I&D - WBAT Drain pulled at bedside Pending cultures Dispo planning-Pending PT eval, pain mgmnt Time Spent With Patient Time: Total time managing care of this patient today ____ minutes. Quality Stroke Does the patient have a stroke diagnosis?: No VTE Prior VTE?: No VTE Risk Level:: Medical - moderate - high VTE Device Contraindication: N/A - Device Ordered VTE Drug Contraindication: Treatment Not Indicated
[2022-12-23 08:00] VITALS: BP 110/70; PULSE 99; RESP 17; TEMP 37.2; O2SAT 92
[2022-12-23] MEDS: HYDROmorphone HCl 0.5 MG/0.5 ML SYRINGE IVPUSH ×2 (08:42→19:10)
[2022-12-23] MEDS: Acetaminophen 325 MG TABLET 650 MG PO (11:52)
--- NOTE | 2022-12-23 13:45 | P.PNIM_ITS ---
Subjective Subjective Date of Service: 12/23/22 Interval History: No acute issues overnight. Pain control adequate Review of Systems Denies chest pain Denies shortness of breath Denies nausea vomiting diarrhea Denies fever chills Physical Exam 2 Vital Signs: Vital Signs: Last Vital Signs Temp 99.0 F 12/23/22 08:00 Pulse 99 12/23/22 08:00 Resp 17 12/23/22 08:00 BP 110/70 12/23/22 08:00 Pulse Ox 92 12/23/22 08:00 O2 Del Method Room Air 12/23/22 08:00 O2 Flow Rate 2 12/21/22 20:00 BMI result Body Mass Index 25.2 Const: Other: No acute distress Resp: Other: Clear to auscultation bilaterally no rales rhonchi or wheezes Cardio: Other: No S4; positive S1-S2; no S3 murmurs rubs or gallops GI: Other: Soft nontender nondistended normoactive bowel sounds Neuro: Other: Cranial nerves 2-12 grossly intact as tested. Motor is 5/5 all extremities. Sensation is intact. Cognition appropriate Extrem: Other: No edema bilaterally. Left hip dressing clean dry intact Objective Data Active Medications Acetaminophen (Acetaminophen 325 Mg Tablet) 650 mg PO Q6H PRN PRN Reason: Pain, Mild (Pain Scale 1-3) Last Admin: 12/23/22 11:52 Dose: 650 mg Documented By: ANGIE Albuterol Sulfate (Albuterol Sulfate 90 Mcg 8 Gm Inhaler) 2 puff INHALE Q4H PRN PRN Reason: Shortness of Breath/Wheezing Docusate Sodium (Docusate Sodium 100 Mg Capsule) 100 mg PO DAILY PRN PRN Reason: Constipation Hydromorphone HCl (Hydromorphone Hcl 0.5 Mg/0.5 Ml Syringe) 0.5 mg IVPUSH Q4H PRN; Protocol PRN Reason: Pain, Severe (Pain Scale 7-10) Last Admin: 12/23/22 08:42 Dose: 0.5 mg Documented By: JOSE Hydromorphone HCl (Hydromorphone Hcl 0.5 Mg/0.5 Ml Syringe) 0.25 mg IVPUSH Q5M PRN; Protocol PRN Reason: Pain, Severe (Pain Scale 7-10) Vancomycin HCl 1,250 mg/ (Sodium Chloride) 250 mls @ 166.667 mls/hr IV Q12H [facility] Last Infusion: 12/23/22 11:27 Dose: Infused Documented By: ANGIE Non-Formulary Medication (Adalimumab [Humira(Cf) Pen]) 40 mg SUBCUT Q2W CHET Ondansetron HCl (Ondansetron Hcl 4 Mg/2 Ml Vial) 4 mg IVPUSH Q8H PRN PRN Reason: Nausea and Vomiting Oxycodone HCl (Oxycodone Hcl Immed Release 5 Mg Tablet) 5 mg PO Q6H PRN PRN Reason: Pain, Moderate(Pain Scale 4-6) Last Admin: 12/23/22 11:52 Dose: 5 mg Documented By: ANGIE Pharmacy Consult (Consult Rx Vancomycin Dosing) 1 each MISCELLANE DAILY PRN PRN Reason: Consult order Sodium Chloride (0.9 % Sodium Chloride Flush 3 Ml Syringe) 3 ml IVFLUSH QSHIFT [facility] Last Admin: 12/23/22 07:32 Dose: 3 ml Documented By: JOSE Labs 12/21/22 02:07 12/23/22 05:59 Labs: Laboratory Results - last 24 hr 12/22/22 12/23/22 18:02 05:59 Estim Creat Clear Calc 113.4 Estimated GFR > 60 Random Vancomycin 10.4 L Microbiology Microbiology Results: Microbiology 12/21/22 Unknown Gram Stain - Final Hip Left Routine Culture - Preliminary No growth to date. 12/21/22 08:41 Blood Culture - Preliminary Blood - Venous No growth after 48 hours. 12/21/22 08:14 Blood Culture - Preliminary Blood - Venous No growth after 48 hours. 12/21/22 Unknown Gram Stain - Final Hip - Hip Anaerobic Culture - Preliminary No growth to date. Joint Fluid Culture - Preliminary No growth to date. Assessment and Plan (1) Left hip pain: Status: Acute (2) Urinary retention: Status: Acute Plan 36-year-old male with history of Crohn's disease, possible rheumatoid arthritis, and mild intermittent asthma admitted for joint effusion meeting sirs criteria with intractable pain; taken to OR by Orthopedics. See procedure note for detail 1.Left-sided hip effusion -no acute issues postop -pain control adequate -continue vanco pending cultures... Thus far negative 2.Urinary retention -likely secondary to anesthesia/pain meds -no further issues 3.Mild intermittent asthma -no acute exacerbation -albuterol p.r.n. 4.Crohn's disease -no acute flare -not due for Humira until Wednesday DVT prophylaxis- SCPs Full code Requires ongoing hospitalization for IV antibiotic pending cultures Time Spent With Patient Time: Total time managing care of this patient today ____ minutes. Quality Stroke Does the patient have a stroke diagnosis?: No VTE Prior VTE?: No VTE Risk Level:: Medical - moderate - high VTE Device Contraindication: N/A - Device Ordered VTE Drug Contraindication: Treatment Not Indicated
[2022-12-23 15:22] VITALS: BP 131/85; PULSE 84; RESP 18; TEMP 36.6
--- NOTE | 2022-12-23 15:42 | MHC.CM.PN ---
per rounds pt is not ready for dc
[2022-12-23 18:23] LABS: Vancomycin Random 12.3 mcg/mL (15-20)
[2022-12-23 19:02] VITALS: BP 132/76; PULSE 95; RESP 20; TEMP 38; O2SAT 97
[2022-12-23] MEDS: vancomycin HCL 1,000 MG in 0.9 % Sodium Chloride 250 ML 270 MG IV (19:11)
[2022-12-24] MEDS: oxyCODONE HCl Immed Release 5 MG TABLET PO ×3 (00:57→18:03)
[2022-12-24] MEDS: Acetaminophen 325 MG TABLET 650 MG PO ×2 (00:57→08:37)
[2022-12-24] MEDS: vancomycin HCL 1,000 MG in 0.9 % Sodium Chloride 250 ML 270 MG IV ×2 (03:17→13:17)
[2022-12-24 03:41] VITALS: BP 127/72; PULSE 79; RESP 18; TEMP 36.6; O2SAT 94
[2022-12-24 07:49] VITALS: BP 141/85; PULSE 82; RESP 17; TEMP 37.3; O2SAT 97
[2022-12-24] MEDS: 0.9 % Sodium Chloride Flush 3 ML SYRINGE IVFLUSH ×3 (07:56→19:22)
--- NOTE | 2022-12-24 09:32 | PM.PNORT ---
Subjective Subjective Date of Service: 12/24/22 Interval history: POD2 s/p left hip I&D Patient is resting in bed comfortably No overnight events Pain is managed No additional complaints Physical Exam Vital Signs: Vital Signs: Last Vital Signs Temp 99.1 F 12/24/22 07:49 Pulse 82 12/24/22 07:49 Resp 17 12/24/22 07:49 BP 141/85 H 12/24/22 07:49 Pulse Ox 97 12/24/22 07:49 O2 Del Method Room Air 12/24/22 07:49 O2 Flow Rate 2 12/21/22 20:00 BMI result Body Mass Index 25.2 Const: General: cooperative, healthy appearing and no acute distress Resp: Effort & Inspection: normal respiratory effort and able to speak in complete sentences Cardio: Rate: regular rate Peripheral pulses: Peripheral pulses 2+ throughout GI: Palpation (GI): Soft to palpation Skin: Lesions: no lesions Rashes: no rashes Extrem: Other: Left hip dressing is c/d/i. Able to dorsi/plantar flex. Calf is supple and nontender. Sensation intact. Pedal pulse intact. Procedures Date of Service Date of Service: 12/24/22 Progress Note: A&P Assessment and plan (1) Effusion of hip joint, left: Status: Acute Plan Continue pain mgmnt Continue PT for left hip s/p I&D - WBAT Cultures negative Dispo planning- PT, pain mgmnt, recommend home vs .rehab Time Spent With Patient Time: Total time managing care of this patient today ____ minutes. Quality Stroke Does the patient have a stroke diagnosis?: No VTE Prior VTE?: No VTE Risk Level:: Medical - moderate - high VTE Device Contraindication: N/A - Device Ordered VTE Drug Contraindication: Treatment Not Indicated
[2022-12-24 10:49] LABS: Creatinine Clr Calc Pharmacy 112.3; Estimated Glomerular Filt Rate > 60
[2022-12-24] MEDS: HYDROmorphone HCl 0.5 MG/0.5 ML SYRINGE IVPUSH ×2 (14:17→19:19)
--- NOTE | 2022-12-24 14:23 | P.PNIM_ITS ---
Subjective Subjective Date of Service: 12/24/22 Interval History: Continues to improve. Pain control adequate Review of Systems Denies chest pain Denies shortness of breath Denies nausea vomiting diarrhea Denies fever chills Physical Exam 2 Vital Signs: Vital Signs: Last Vital Signs Temp 99.1 F 12/24/22 07:49 Pulse 82 12/24/22 07:49 Resp 17 12/24/22 07:49 BP 141/85 H 12/24/22 07:49 Pulse Ox 97 12/24/22 07:49 O2 Del Method Room Air 12/24/22 07:49 O2 Flow Rate 2 12/21/22 20:00 BMI result Body Mass Index 25.2 Const: Other: No acute distress Resp: Other: Clear to auscultation bilaterally no rales rhonchi or wheezes Cardio: Other: No S4; positive S1-S2; no S3 murmurs rubs or gallops GI: Other: Soft nontender nondistended normoactive bowel sounds Neuro: Other: Cranial nerves 2-12 grossly intact as tested. Motor is 5/5 all extremities. Sensation is intact. Cognition appropriate Extrem: Other: No edema bilaterally. Left hip dressing clean dry intact Objective Data Active Medications Acetaminophen (Acetaminophen 325 Mg Tablet) 650 mg PO Q6H PRN PRN Reason: Pain, Mild (Pain Scale 1-3) Last Admin: 12/24/22 08:37 Dose: 650 mg Documented By: JOSE Albuterol Sulfate (Albuterol Sulfate 90 Mcg 8 Gm Inhaler) 2 puff INHALE Q4H PRN PRN Reason: Shortness of Breath/Wheezing Docusate Sodium (Docusate Sodium 100 Mg Capsule) 100 mg PO DAILY PRN PRN Reason: Constipation Hydromorphone HCl (Hydromorphone Hcl 0.5 Mg/0.5 Ml Syringe) 0.5 mg IVPUSH Q4H PRN; Protocol PRN Reason: Pain, Severe (Pain Scale 7-10) Last Admin: 12/24/22 14:17 Dose: 0.5 mg Documented By: JOSE Hydromorphone HCl (Hydromorphone Hcl 0.5 Mg/0.5 Ml Syringe) 0.25 mg IVPUSH Q5M PRN; Protocol PRN Reason: Pain, Severe (Pain Scale 7-10) Vancomycin HCl 1,000 mg/ (Sodium Chloride) 270 mls @ 270 mls/hr IV Q8H [facility] Last Infusion: 12/24/22 14:18 Dose: Infused Documented By: JOSE Non-Formulary Medication (Adalimumab [Humira(Cf) Pen]) 40 mg SUBCUT Q2W CHET Ondansetron HCl (Ondansetron Hcl 4 Mg/2 Ml Vial) 4 mg IVPUSH Q8H PRN PRN Reason: Nausea and Vomiting Oxycodone HCl (Oxycodone Hcl Immed Release 5 Mg Tablet) 5 mg PO Q6H PRN PRN Reason: Pain, Moderate(Pain Scale 4-6) Last Admin: 12/24/22 08:37 Dose: 5 mg Documented By: JOSE Pharmacy Consult (Consult Rx Vancomycin Dosing) 1 each MISCELLANE DAILY PRN PRN Reason: Consult order Sodium Chloride (0.9 % Sodium Chloride Flush 3 Ml Syringe) 3 ml IVFLUSH QSHIFT [facility] Last Admin: 12/24/22 13:20 Dose: 3 ml Documented By: JOSE Labs 12/21/22 02:07 12/24/22 05:26 Labs: Laboratory Results - last 24 hr 12/23/22 12/24/22 17:56 05:26 Estim Creat Clear Calc 112.3 Estimated GFR > 60 Random Vancomycin 12.3 L Microbiology Microbiology Results: Microbiology 12/21/22 Unknown Gram Stain - Final Hip Left Routine Culture - Final No growth after 2 days 12/21/22 Unknown Gram Stain - Final Hip - Hip Anaerobic Culture - Preliminary No growth to date. Joint Fluid Culture - Preliminary No growth to date. 12/21/22 08:41 Blood Culture - Preliminary Blood - Venous No growth after 48 hours. 12/21/22 08:14 Blood Culture - Preliminary Blood - Venous No growth after 48 hours. Assessment and Plan (1) Effusion of hip joint, left: Status: Acute Plan 36-year-old male with history of Crohn's disease, possible rheumatoid arthritis, and mild intermittent asthma admitted for joint effusion meeting sirs criteria with intractable pain; taken to OR by Orthopedics. See procedure note for detail 1.Left-sided hip effusion -no acute issues postop -pain control adequate -all cultures negative; will DC vancomycin and follow white count in a.m. 2.Urinary retention -likely secondary to anesthesia/pain meds -no further issues 3.Mild intermittent asthma -no acute exacerbation -albuterol p.r.n. 4.Crohn's disease -no acute flare -not due for Humira until Wednesday DVT prophylaxis- SCPs Full code Requires ongoing hospitalization for IV antibiotic pending cultures Time Spent With Patient Time: Total time managing care of this patient today ____ minutes. Quality Stroke Does the patient have a stroke diagnosis?: No VTE Prior VTE?: No VTE Risk Level:: Medical - moderate - high VTE Device Contraindication: N/A - Device Ordered VTE Drug Contraindication: Treatment Not Indicated
[2022-12-24 15:15] VITALS: BP 122/79; PULSE 90; RESP 20; TEMP 36.8; O2SAT 96
[2022-12-24 18:17] LABS: Vancomycin Random 16.6 mcg/mL (15-20)
[2022-12-24 19:46] VITALS: BP 140/86; PULSE 100; RESP 20; TEMP 37; O2SAT 98
[2022-12-25] MEDS: Acetaminophen 325 MG TABLET 650 MG PO (01:43)
[2022-12-25] MEDS: oxyCODONE HCl Immed Release 5 MG TABLET PO ×2 (01:43→13:42)
[2022-12-25 03:14] VITALS: BP 134/84; PULSE 78; RESP 18; TEMP 36.4; O2SAT 93
[2022-12-25 05:25] LABS: MANUAL DIFF FLAG NO
[2022-12-25 05:29] LABS: Basophils Absolute Auto 0.1 X10*3/uL (0.0-0.2); Basophils Percent Auto 0.5 % (0-2); Hemoglobin 12.7 g/dl (14.0-18.0); Imm Gran Abs Auto 0.04 X10*3/uL (0.00-0.03); Imm Gran Pct Auto 0.4 % (0.0-0.4); Lymphocytes Absolute Auto 1.9 X10*3/uL (1.2-4.9); Lymphocytes Percent Auto 21.3 % (20-40); Mean Corpuscular HGB Conc 34.3 g/dl (31.0-36.0); Mean Corpuscular Hemoglobin 31.5 pg (27.0-33.0); Mean Corpuscular Volume 91.8 fL (80.0-98.0); Mean Platelet Volume 9.6 fL (9.4-12.4); Monocytes Absolute Auto 0.8 X10*3/uL (0.1-1.2); Monocytes Percent Auto 8.8 % (2-11); Neutrophils Absolute Auto 6.3 x10*3/uL (2.0-8.3); Platelet Count 300 X10*3/uL (160-400); Red Blood Count 4.03 X10*6/uL (4.60-5.80); Red Cell Distribution Width 12.4 % (11.0-16.0); White Blood Count 9.1 X10*3/uL (4.8-10.8)
[2022-12-25 05:43] LABS: Creatinine Clr Calc Pharmacy 95.4; Estimated Glomerular Filt Rate > 60
[2022-12-25 08:00] VITALS: BP 136/91; PULSE 83; RESP 18; TEMP 36.6; O2SAT 97
[2022-12-25] MEDS: 0.9 % Sodium Chloride Flush 3 ML SYRINGE IVFLUSH ×3 (08:45→20:14)
[2022-12-25] MEDS: HYDROmorphone HCl 0.5 MG/0.5 ML SYRINGE IVPUSH ×2 (09:03→21:45)
--- NOTE | 2022-12-25 14:33 | MHC.CM.PN ---
Addendum entered by Mary Kate Vann 12/25/22 16:10: N HAS ACCEPTED PT AND INSURANCE AUTH HAS BEEN OBTAINED. N LIAISON REQUESTS HUMIRA BE GIVEN BEFORE DC FROM HERE . PT AWARE AND AGREEABLE TO PLAN. Original Note: EMR REVIEWED. P.T. REC STR, PT AGREEABLE HOWEVER NO BED OFFERS AT THIS TIME. N WILL INVESTIGATE IF [facility] WILL DO A CARVE OUT FOR HUMIRA, IF NOT THEY WILL NOT BE ABLE TO OFFER A BED (UNABLE TO TAKE MEDICATIONS FROM HOME) PT AWARE AND CM WILL FOLLOW FOR CHANGE IN DC PLAN/NEEDS
[2022-12-25 14:55] VITALS: BP 136/91; PULSE 83; O2SAT 97
[2022-12-25 16:00] VITALS: BP 126/80; PULSE 89; RESP 20; TEMP 36; O2SAT 96
--- NOTE | 2022-12-25 16:46 | P.PNIM_ITS ---
Subjective Subjective Date of Service: 12/25/22 Interval History: No acute issues overnight. Continues to ambulate with walker with minimal assist Review of Systems Denies chest pain Denies shortness of breath Denies nausea vomiting diarrhea Denies fever chills Physical Exam 2 Vital Signs: Vital Signs: Last Vital Signs Temp 96.8 F 12/25/22 16:00 Pulse 89 12/25/22 16:00 Resp 20 12/25/22 16:00 BP 126/80 12/25/22 16:00 Pulse Ox 96 12/25/22 16:00 O2 Del Method Room Air 12/25/22 16:00 O2 Flow Rate 2 12/21/22 20:00 BMI result Body Mass Index 25.2 Const: Other: No acute distress Resp: Other: Clear to auscultation bilaterally no rales rhonchi or wheezes Cardio: Other: No S4; positive S1-S2; no S3 murmurs rubs or gallops GI: Other: Soft nontender nondistended normoactive bowel sounds Neuro: Other: Cranial nerves 2-12 grossly intact as tested. Motor is 5/5 all extremities. Sensation is intact. Cognition appropriate Extrem: Other: No edema bilaterally. Left hip dressing clean dry intact Objective Data Active Medications Acetaminophen (Acetaminophen 325 Mg Tablet) 650 mg PO Q6H PRN PRN Reason: Pain, Mild (Pain Scale 1-3) Last Admin: 12/25/22 01:43 Dose: 650 mg Documented By: CA Albuterol Sulfate (Albuterol Sulfate 90 Mcg 8 Gm Inhaler) 2 puff INHALE Q4H PRN PRN Reason: Shortness of Breath/Wheezing Docusate Sodium (Docusate Sodium 100 Mg Capsule) 100 mg PO DAILY PRN PRN Reason: Constipation Hydromorphone HCl (Hydromorphone Hcl 0.5 Mg/0.5 Ml Syringe) 0.5 mg IVPUSH Q4H PRN; Protocol PRN Reason: Pain, Severe (Pain Scale 7-10) Last Admin: 12/25/22 09:03 Dose: 0.5 mg Documented By: ARTEM Hydromorphone HCl (Hydromorphone Hcl 0.5 Mg/0.5 Ml Syringe) 0.25 mg IVPUSH Q5M PRN; Protocol PRN Reason: Pain, Severe (Pain Scale 7-10) Non-Formulary Medication (Adalimumab [Humira(Cf) Pen]) 40 mg SUBCUT Q2W CHET Ondansetron HCl (Ondansetron Hcl 4 Mg/2 Ml Vial) 4 mg IVPUSH Q8H PRN PRN Reason: Nausea and Vomiting Oxycodone HCl (Oxycodone Hcl Immed Release 5 Mg Tablet) 5 mg PO Q6H PRN PRN Reason: Pain, Moderate(Pain Scale 4-6) Last Admin: 12/25/22 13:42 Dose: 5 mg Documented By: GILBERTO Pharmacy Consult (Consult Rx Vancomycin Dosing) 1 each MISCELLANE DAILY PRN PRN Reason: Consult order Sodium Chloride (0.9 % Sodium Chloride Flush 3 Ml Syringe) 3 ml IVFLUSH QSHIFT [facility]T Last Admin: 12/25/22 15:48 Dose: 3 ml Documented By: GILBERTO Labs 12/25/22 05:15 12/25/22 05:15 Labs: Laboratory Results - last 24 hr 12/24/22 12/25/22 17:17 05:15 MCV 91.8 MCH 31.5 MCHC 34.3 RDW 12.4 Plt Count 300 MPV 9.6 Immature Gran % (Auto) 0.4 Neut % (Auto) 69.0 Lymph % (Auto) 21.3 [place] % (Auto) 8.8 Eos % (Auto) 0.0 Baso % (Auto) 0.5 Lymph # (Auto) 1.9 [place] # (Auto) 0.8 Eos # (Auto) 0.0 Baso # (Auto) 0.1 Abs Immat Gran (auto) 0.04 H Absolute Neuts (auto) 6.3 Absolute Nucleated RBC 0.000 Nucleated RBC % (auto) 0.0 Estim Creat Clear Calc 95.4 Estimated GFR > 60 Random Vancomycin 16.6 Microbiology Microbiology Results: Microbiology 12/21/22 Unknown Gram Stain - Final Hip - Hip Anaerobic Culture - Preliminary No growth to date. Joint Fluid Culture - Preliminary No growth to date. Assessment and Plan (1) Effusion of hip joint, left: Status: Acute (2) Rheumatoid arthritis: Status: Acute Plan 36-year-old male with history of Crohn's disease, possible rheumatoid arthritis, and mild intermittent asthma admitted for joint effusion meeting sirs criteria with intractable pain; taken to OR by Orthopedics. See procedure note for detail 1.Left-sided hip effusion -no acute issues postop -pain control adequate -all cultures negative; no change in white count after antibiotic. 2.Urinary retention -likely secondary to anesthesia/pain meds -no further issues 3.Mild intermittent asthma -no acute exacerbation -albuterol p.r.n. 4.Crohn's disease -no acute flare -not due for Humira until Wednesday DVT prophylaxis- SCPs Full code Requires ongoing hospitalization for IV antibiotic pending cultures Time Spent With Patient Time: Total time managing care of this patient today ____ minutes. Quality Stroke Does the patient have a stroke diagnosis?: No VTE Prior VTE?: No VTE Risk Level:: Medical - moderate - high VTE Device Contraindication: N/A - Device Ordered VTE Drug Contraindication: Treatment Not Indicated
[2022-12-25 19:06] VITALS: BP 130/83; PULSE 86; RESP 20; TEMP 36.7; O2SAT 96
[2022-12-26] MEDS: oxyCODONE HCl Immed Release 5 MG TABLET PO ×3 (00:39→14:40)
[2022-12-26 03:03] VITALS: BP 130/82; PULSE 80; RESP 16; TEMP 36; O2SAT 95
[2022-12-26 06:56] LABS: Creatinine Clr Calc Pharmacy 101.1; Estimated Glomerular Filt Rate > 60
[2022-12-26 07:05] VITALS: BP 137/80; PULSE 76; RESP 16; TEMP 36.1; O2SAT 97
[2022-12-26] MEDS: HYDROmorphone HCl 0.5 MG/0.5 ML SYRINGE IVPUSH (08:42)
[2022-12-26] MEDS: 0.9 % Sodium Chloride Flush 3 ML SYRINGE IVFLUSH (08:44)
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
--- NOTE | 2022-12-26 13:50 | MHC.CM.PN ---
PT WILL DC TO [facility] TODAY AT [address] [facility] FOR STR
--- NOTE | 2022-12-28 12:49 | P.OP_ITS ---
Operative Note Operative Note Date of Service: 12/21/22 Narrative: Date of Service: 12/21/22 Pre-op diagnosis: Septic left hip Post-op diagnosis: same Procedure: Incision and drainage left hip Implants: 7F GIANNI drain Surgeon: Amari Lund MD Anesthesia: GLMA and local Was an Nursing Service Administrator used for this Procedure?: No Estimated blood loss (mL): 25 IV fluids (mL): 750 Pathology: other Condition: stable Disposition: PACU Patient was brought to the operating room and placed supine on the surgical table. He was prepped and draped in standard sterile fashion and a time out was called to identify proper site, proper procedure and IV antibiotics per weight were administered. I bumped the hip M began by making a 5 cm incision from the anterior superior iliac spine descending distally over the anterolateral thigh in the direction of the lateral femoral condyle. Skin flaps were taken down to the fascia of the tensor and this was incised lateral to the lateral femoral branches of the cutaneous nerve. I then established a pain between the sartorius and the tensor fascia and bluntly dissection dissected down to the rectus femoris. Blunt retractors were placed and the ascending branches of the lateral femoral circumflex artery were identified and preserved. The rectus femoris was then detached and retracted medially and the capsule was identified. A small window was taken out of the anterior inferior portion of the capsule and abnormal appearing fluid was identified and sent for specimen. I then placed a cysto tubing into the hip and irrigated with 6 L of saline. There was no abnormal appearing fluid that remained and I was confident of the hip it min irrigated comprehensively. I then removed all instrumentation and irrigated the soft tissues again. A 7 [place] GIANNI drain was left in the hip joint and this was taken out lateral to the incision and attached to a drain suction. I then closed with absorbable suture and quinn in the skin. Patient was placed in sterile dressing extubated and brought to recovery room stable condition. There were no known complications.
== END 2022-12-26 15:04 | DRG 309 ==
LOC: HO.ED 09:14 → HO.EDOVER 11:54 → HO.S3 18:54
PROVIDERS: Orthopaedic Surgery; Registered Nurse Emergency; Admitting Provider Physician Assistant; Emergency Provider Emergency Medicine; Visit Provider Hospitalist
PROC: 0S9B0ZZ Drainage of Left Hip Joint, Open Approach (ICD-10-PCS; principal; 2022-12-21 16:30)
DX: M25.452 Effusion, left hip (principal); D84.821 Immunodeficiency due to drugs; J45.20 Mild intermittent asthma, uncomplicated; K50.90 Crohn's disease, unspecified, without complications; M06.9 Rheumatoid arthritis, unspecified; R33.9 Retention of urine, unspecified; Z23 Encounter for immunization; Z79.620 Long term (current) use of immunosuppressive biologic
CPT/HCPCS: 20610; 36415; 73502; 73701; 77002; 80048; 80053; 80202; 80307; 81001; 82565; 85025; 85610; 85652; 85730; 86140; 87040; 87070; 87073; 87205; 88112; 89051; 90686; 97110; 97116; 97162; 97165; 97530; 97535; 99285; J0131; J0690; J1170; J1200; J1885; J2250; J2270; J2405; J3010; J3360; J3370; J3371; Q9967

== ENCOUNTER 2022-12-21 11:53 | Outpatient (BNV) | payer OTHER, SELFPAY | END 2022-12-21 12:00 | PROVIDERS: Admitting Provider Physician Assistant; Emergency Provider Emergency Medicine; Visit Provider Radiology Diagnostic Radiology | DX: M25.552 Pain in left hip (principal) | CPT/HCPCS: 20610; 77002 ==

== ENCOUNTER → 2022-12-21 11:53 | Outpatient (BNV) | payer OTHER, SELFPAY | PROVIDERS: Admitting Provider Physician Assistant; Emergency Provider Emergency Medicine; Visit Provider Urology | DX: R33.9 Retention of urine, unspecified (principal) | CPT/HCPCS: 99221 ==

== ENCOUNTER → 2022-12-21 11:53 | Outpatient (BNV) | payer OTHER, SELFPAY | PROVIDERS: Admitting Provider Physician Assistant; Emergency Provider Emergency Medicine; Visit Provider Orthopaedic Surgery | DX: M25.452 Effusion, left hip (principal) | CPT/HCPCS: 27030; 99024; 99232 ==

== ENCOUNTER → 2022-12-21 11:53 | Outpatient (BNV) | payer OTHER, SELFPAY | PROVIDERS: Admitting Provider Physician Assistant; Emergency Provider Emergency Medicine; Visit Provider Physician Assistant | DX: M25.452 Effusion, left hip (principal); M06.052 Rheumatoid arthritis without rheumatoid factor, left hip | CPT/HCPCS: 99223; 99233; 99239 ==

== ENCOUNTER 2022-12-31 09:55 | Outpatient (AMB) | payer OTHER, SELFPAY ==
--- NOTE | 2022-12-31 10:03 | MHC.OFFVIS ---
Intake Intake Visit Reasons: PO - left hip I&D, 12/21/22 NE Intake Note: Sky is a 37 year old male who presents today for a post op wound check s/p left hip I&D, 12/21/22 NE. Patient reports going well and only using the pain when he needs it. Allergies cefaclor [From Ceclor] Allergy (Unknown, Verified 12/31/22 10:04) Rash Pertussis Vaccines Allergy (Unknown, Verified 12/31/22 10:04) Hives chlorine Allergy (Unknown, Uncoded 12/21/22 01:12) hives HPI PO - left hip I&D, 12/21/22 NE HPI Details 37-year-old male who presents in the office today 10 days status post left hip incision and drainage, which was performed on 12/21/[address] Lund. The patient reports it is going well and states the hip is getting better. He confirms he only uses the pain medication when needed. [facility] Medical History (Updated 12/31/22 @ 10:28 by Estelle Cosby) Rheumatoid arthritis Asthma Crohn's disease Social History Household Members: None Housing: Apartment Do you presently have visiting nurse or other home services: No Patient Tobacco Use Status: Never used Tobacco Substance Use Type: Marijuana service: No Review of Systems Const All systems reviewed & are unremarkable except as noted in HPI and below Physical Exam Const General: cooperative, healthy appearing and no acute distress Resp Effort & Inspection: normal respiratory effort and able to speak in complete sentences Cardio Rate: regular rate Peripheral pulses: Peripheral pulses 2+ throughout GI Palpation (GI): Soft to palpation Skin Lesions: no lesions Rashes: no rashes Extrem Other: Left hip: Incision site is clean, dry, and intact. No erythema or drainage. No signs of infection. [place] intact. Full hip ROM. Ambulating with the use of a cane. NVI. Assessment & Plan Assessment & Plan (1) Effusion of hip joint, left: Comment: Left hip incision and drainage 12/21/2022 Dr. Lund Code(s): M25.452 - Effusion, left hip Plan Mr. Be is a 37-year-old male who presents in the office today 10 days status post left hip incision and drainage, which was performed on 12/21/[address] Lund. The patient reports it is going well and states the hip is getting better. He confirms he only uses the pain medication when needed. Dr. Lund was available to see the patient with me while in the office today and a collaborative treatment plan was made. He will be referred to Rheumatology for further treatment of RA. [place] were removed and steri-stripes were applied. He will gradually return to normal activities as tolerate. Follow up will be in 4 weeks, or sooner if needed. Orders: Referrals Rheumatology Referral M06.9 - Rheumatoid arthritis, unspecified, M25.452 - Effusion, left hip Patient Instructions: Scribed for Sera Cortez PA-C by Estelle Cosby medical practitioners, on 12/31/2022 at 9:57 am, EST. Coding Level of Care Code Global (92962) Diagnoses Effusion of hip joint, left M25.452
== END 2022-12-31 10:36 | disposition home or self-care (01) ==
PROVIDERS: Visit Provider Physician Assistant
DX: M25.452 Effusion, left hip (principal)
CPT/HCPCS: 99024

== ENCOUNTER → 2022-12-31 09:55 | Outpatient (BNVA) | payer OTHER, SELFPAY | PROVIDERS: Visit Provider Physician Assistant ==

== ENCOUNTER 2023-01-12 11:48 | Emergency (ER) | payer OTHER, SELFPAY ==
[2023-01-12 12:55] VITALS: BP 132/89; PULSE 100; RESP 18; TEMP 36.7; O2SAT 96; BMI 24.4
--- NOTE | 2023-01-12 12:56 | ED_ITS ---
HPI - General Adult General Chief complaint: General Medical Stated complaint: Sent by [facility]/ blood clot? Time Seen by Provider: 01/12/23 19:00 Source: patient Mode of arrival: ambulatory Limitations: no limitations History of Present Illness HPI narrative: Patient is a 37-year-old male who presents emergency department for evaluation of pain to the left lower extremity. He states that he had a recent surgical procedure with our orthopedic department, incision and drainage, in the middle of December. He continued to have intermittent pain to the left hip and thigh which was pretty consistent and normal for him. However he states that yesterday night he began developing pain in the left calf, he reports that pain was 8/10, felt like a severe cramping pain, and when he awoke this morning the pain was still air. He contacted the orthopedic department it was advised that he should come to the emergency department for evaluation. He denies fevers, chills, precipitating injury, redness, swelling, rashes or lesions, numbness or tingling to the extremity. Denies personal history of DVT/PE/malignancy. Related Data Home Medications Medication Instructions Recorded Confirmed acetaminophen 325 mg tablet 650 mg PO Q6H PRN Pain 12/21/22 12/21/22 ibuprofen 400 mg tablet 400 mg PO Q6H PRN Pain (Scale 12/21/22 12/21/22 Score 1-3) oxymetazoline 0.05 % nasal spray 2 spray intranasal Q12H PRN Nasal 12/21/22 12/21/22 Congestion Previous Rx's Medication Instructions Recorded oxycodone 10 mg tablet 10 mg PO Q4H PRN pain #60 tabs 12/26/22 Allergies Allergy/AdvReac Type Severity Reaction Status Date / Time cefaclor [From Ceclor] Allergy Unknown Rash Verified 12/31/22 10:04 Pertussis Vaccines Allergy Unknown Hives Verified 12/31/22 10:04 chlorine Allergy Unknown hives Uncoded 12/21/22 01:12 Review of Systems 2 Review of Systems: Yes all other systems are reviewed and are negative PMFSH Past Medical History Attestation statement: The following information was validated with the patient. Source: old records reviewed Medical History Urinary retention Left hip pain Rheumatoid arthritis Asthma Crohn's disease Social History Social History Household Members: None Housing: Apartment Do you presently have visiting nurse or other home services: No Patient Tobacco Use Status: Never used Tobacco Substance Use Type: Marijuana Advance Directives: No Advance Directives Information Provided: No service: No Physical Exam ED Vital Signs: Vital Signs - 24 hr 01/12/23 12:55 01/12/23 19:04 Temperature 98.0 F 98.1 F Pulse Rate 100 80 Respiratory Rate 18 18 Blood Pressure 132/89 133/80 Pulse Oximetry 96 97 Oxygen Delivery Method Room Air Room Air BMI result Body Mass Index 24.4 Appearance: Alert.?Oriented to person, place and time. No acute distress.?Normal affect.? Neck: Normal inspection.? Neck supple.?? CVS: Heart sounds normal. Normal heart rate and rhythm.? Pulses normal.?? Respiratory: No respiratory distress.? Lung sounds clear to auscultation bilaterally?? Abdomen: Soft and non-tender. Skin: Skin warm and dry.? Normal skin color.? Extremities: No lower extremity edema.? No calf ttp?negative Payam sign. Neuro: Moves all extremities spontaneously. Sensation intact bilaterally. No focal neuro deficits. Ambulates with normal steady gait. Course Course Course Narrative: This is an RME: Additional HPI, ROS, PE not included below will be deferred to primary provider. This is a 56-[id number]-kal-male presenting to the emergency department to rule out DVT. On December 28, patient had a incision and drainage of his left hip. States that he has had throbbing pain in his left leg over the last month worsening last several days. He called ortho for follow-up and was sent to rule out DVT. Unable to visualize leg in triage given limited prior CT. Will obtain ultrasound, and basic labs. Further ER evaluation needed. Medical Decision Making Medical Decision Making MDM Narrative: Patient is a 37-year-old male presents emergency department today for evaluation of calf pain as per HPI. On 12/21/2022 he underwent incision and drainage in the OR with Dr. Lund after was found to have an effusion, he was followed inpatient subsequently, all cultures were negative and he was ultimately discharged home. The throbbing/cramping pain to his left calf was new as of yesterday night which prompted his contacting the orthopedic office for inquiry. A venous duplex ultrasound was obtained which reveals no evidence of DVT. Upon physical examination there is no evidence of cellulitis, there is full AROM to the knee and ankle. The extremity is neurovascularly intact distally. Serum labs were obtained and there is no evidence of leukocytosis, electrolyte abnormality to suggest alternative cause for his pain. Likely muscle spasm of the calf. At this time feel that he is stable for discharge home and outpatient follow-up with primary care provider/Orthopedics for continued pain management. He is ambulatory with steady gait in the use of his cane. We reviewed worrisome signs and symptoms that would warrant re-evaluation in the emergency department. All questions answered. Stable for discharge. Differential Diagnosis Differential Diagnoses: The differential diagnosis associated with the presentation includes (As noted above) Admission/Observation Consideration of admission/observation: Escalation of care including admission/observation considered (Considered admission for lower extremity pain in the setting of recent surgical procedure, see narrative above for further detail) Lab Data MDM Lab Attestation statement: I reviewed the patient's lab results. (See narrative above for further detail) 01/12/23 15:20 01/12/23 15:20 Labs: Lab Results 01/12/23 Range/Units 15:20 WBC 7.1 (4.8-10.8) X10*3/uL RBC 4.51 L (4.60-5.80) X10*6/uL Hgb 13.8 L (14.0-18.0) g/dl Hct 41.6 L (42.0-52.0) % MCV 92.2 (80.0-98.0) fL MCH 30.6 (27.0-33.0) pg MCHC 33.2 (31.0-36.0) g/dl RDW 12.9 (11.0-16.0) % Plt Count 412 H D (160-400) X10*3/uL MPV 9.5 (9.4-12.4) fL Immature Gran % (Auto) 0.1 (0.0-0.4) % Neut % (Auto) 57.3 (45-73) % Lymph % (Auto) 34.2 (20-40) % [place] % (Auto) 7.2 (2-11) % Eos % (Auto) 0.1 (0-4) % Baso % (Auto) 1.1 (0-2) % Lymph # (Auto) 2.4 (1.2-4.9) X10*3/uL [place] # (Auto) 0.5 (0.1-1.2) X10*3/uL Eos # (Auto) 0.0 (0.0-0.4) X10*3/uL Baso # (Auto) 0.1 (0.0-0.2) X10*3/uL Abs Immat Gran (auto) 0.01 (0.00-0.03) X10*3/uL Absolute Neuts (auto) 4.1 (2.0-8.3) x10*3/uL Absolute Nucleated RBC 0.000 (0.0-0.012) X10*3/uL Nucleated RBC % (auto) 0.0 (0.0-0.2) /100WBC PT 13.3 (11.1-13.3) SEC INR 1.1 (0.9-1.1) APTT 32.1 (26.0-36.4) SEC Sodium 140 (135-145) mmol/L Potassium 4.8 (3.3-5.1) mmol/L Chloride 106 (96-108) mmol/L Carbon Dioxide 25 (22-29) mmol/L Anion Gap 14 (12-20) BUN 13 (9-16) mg/dL Creatinine 1.01 (0.5-1.4) mg/dL Estim Creat Clear Calc 100.1 Estimated GFR > 60 Random Glucose 88 (60-115) mg/dL Calcium 10.3 H D (8.4-10.2) mg/dL Total Bilirubin 0.4 (0.0-1.0) mg/dL Direct Bilirubin 0.1 (0.0-0.5) mg/dL AST 27 (5-37) U/L ALT 44 H (0-40) U/L Alkaline Phosphatase 53 (39-117) U/L Total Protein 7.5 (6.5-8.0) g/dL Albumin 4.3 (3.5-5.0) g/dL Independent Interpretation I performed an independent interpretation of an: Ultrasound Radiology Impression Discussion of test interpretation with radiology: I have reviewed the radiologist's reading. Radiologist Impression: US/US venous duplex LE LT IMPRESSION: No DVT demonstrated in the left lower extremity. External Record Review External record reviewed: Outpatient record Prescription Management I considered prescription management with: Pain Medication (Continued use of his home pain medications) Discharge Plan Discharge Clinical Impression: Acute pain of left lower extremity Patient Disposition: Home, Self-Care Instructions: Leg Cramps (ED), Leg Pain (ED) Additional Instructions: As discussed, your ultrasound today does not show any evidence of a blood clot which is very reassuring. You can take ibuprofen 200 mg, 3 tablets (600mg) every 6-8 hours as needed for pain, in addition to Tylenol 500 mg, 2 tablets (1,000mg) every 4-6 hours as needed for pain, but not to exceed 3 doses daily (3,000mg).? Please contact your primary care provider/orthopedic provider and arrange for further follow-up. You may return back to emergency department any new or worsening symptoms or concerns. Prescriptions: No Action acetaminophen 325 mg Tablet 650 mg PO Q6H PRN (Reason: Pain) ibuprofen 400 mg Tablet 400 mg PO Q6H PRN (Reason: Pain (Scale Score 1-3)) oxymetazoline 0.05 % [place],Non-Aerosol 2 spray INTRANASAL Q12H PRN (Reason: Nasal Congestion) oxycodone 10 mg tablet 10 mg PO Q4H PRN (Reason: pain) Qty: 60 0RF Rx Instructions: Partial Fill upon patient request.
--- NOTE | 2023-01-12 13:58 | MHC.EDTECH ---
called patient twice from triage for blood work. no response at 1330 or 1400.
[2023-01-12 19:04] VITALS: BP 133/80; PULSE 80; RESP 18; TEMP 36.7; O2SAT 97
== END 2023-01-12 19:47 | disposition home or self-care (01) ==
PROVIDERS: Emergency Provider Emergency Medicine
DX: M79.605 Pain in left leg (principal); R60.0 Localized edema; Z79.899 Other long term (current) drug therapy
CPT/HCPCS: 36415; 80048; 80076; 85025; 85610; 85730; 93971; 99282; 99284

== ENCOUNTER 2023-04-15 08:37 | Outpatient (REF) | payer OTHER, SELFPAY ==
--- NOTE | ~2023-04-15 | XR_ITS ---
EXAMINATION: XR SACROILIAC JOINTS CLINICAL INFORMATION: Crohn's disease. Evaluate for sacroiliitis. COMPARISON: None available. TECHNIQUE: 3 views of the sacroiliac joints FINDINGS: The synovial portions of the sacroiliac joints are normal. No articular erosions. There appears to be narrowing of the fibrous portion of the superior left sacroiliac joint along with mild subarticular sclerosis and possible mild enthesophyte formation. There are no suspicious bone lesions. The sacral ala and foramina are normal. The hip joint spaces and pubic symphysis are normal. XR/XR sacroiliac joint min 3V IMPRESSION: No evidence of sacroiliitis.
[2023-04-15 09:57] LABS: MANUAL DIFF FLAG NO
[2023-04-15 10:37] LABS: Basophils Absolute Auto 0.1 X10*3/uL (0.0-0.2); Basophils Percent Auto 0.8 % (0-2); Hematocrit 46.6 % (42.0-52.0); Hemoglobin 15.6 g/dl (14.0-18.0); Imm Gran Abs Auto 0.02 X10*3/uL (0.00-0.03); Imm Gran Pct Auto 0.3 % (0.0-0.4); Lymphocytes Absolute Auto 2.1 X10*3/uL (1.2-4.9); Lymphocytes Percent Auto 34.6 % (20-40); Mean Corpuscular HGB Conc 33.5 g/dl (31.0-36.0); Mean Corpuscular Hemoglobin 30.4 pg (27.0-33.0); Mean Corpuscular Volume 90.7 fL (80.0-98.0); Mean Platelet Volume 10.1 fL (9.4-12.4); Monocytes Absolute Auto 0.5 X10*3/uL (0.1-1.2); Monocytes Percent Auto 7.8 % (2-11); Neutrophils Absolute Auto 3.3 x10*3/uL (2.0-8.3); Neutrophils Percent Auto 56.5 % (45-73); Platelet Count 270 X10*3/uL (160-400); Red Blood Count 5.14 X10*6/uL (4.60-5.80); Red Cell Distribution Width 13.1 % (11.0-16.0); White Blood Count 5.9 X10*3/uL (4.8-10.8)
[2023-04-15 11:04] LABS: Alanine Aminotransferase 53 U/L (0-40); Albumin Level 4.8 g/dL (3.5-5.0); Alkaline Phosphatase 62 U/L (39-117); Anion Gap 10 (12-20); Aspartate Amino Transferase 29 U/L (5-37); Bilirubin Total 0.4 mg/dL (0.0-1.0); Blood Urea Nitrogen 18 mg/dL (9-16); C Reactive Protein < 0.10 mg/dL (< or = 0.50); Carbon Dioxide 28 mmol/L (22-29); Chloride 107 mmol/L (96-108); Estimated Glomerular Filt Rate > 60; Glucose Random 86 mg/dL (60-115); Potassium 4.4 mmol/L (3.3-5.1); Rheumatoid Factor < 13.0 IU/mL (<15.0); Sodium 141 mmol/L (135-145); Total Protein 7.9 g/dL (6.5-8.0)
[2023-04-15 11:18] LABS: HBS Num1 19.65 mIU/mL (0-7.99); HBc Num1 0.12 S/CO (0.00-0.79); HBsAGNum1 0.25 S/CO (0.00-0.99); Hepatitis A Antibody IgM 0.19 Index (0-0.79); Hepatitis B Core Antibody Nonreactive (Nonreactive); Hepatitis B Surface Antigen Negative (Negative); ~HepC Num1 0.13 S/CO (0.00-0.79); ~Hepatitis A Antibody IgM Nonreactive (Nonreactive); ~Hepatitis B Surface Antibody REACTIVE (Nonreactive); ~Hepatitis C Antibody Nonreactive (Nonreactive)
[2023-04-15 11:20] LABS: Erythrocyte Sedimentation Rate 2 MM/HR (0-15)
[2023-04-17 21:32] LABS: TS Negative Control Passed; TS Panel A 1; TS Panel B 0; TS Positive Control Passed; TSpotTB Negative (Negative)
[2023-04-20 21:48] LABS: HLA B27 Negative (Negative)
[2023-04-21 11:08] LABS: Anti Nuclear Antibody Screen NEGATIVE (NEGATIVE)
[2023-04-23 14:59] LABS: Cyclic Citrullinated Peptide <16 UNITS
== END 2023-04-15 08:38 | disposition home or self-care (01) ==
LOC: HO.XRAY 08:37
PROVIDERS: Visit Provider Student in an Organized Health Care Education/Training Program
DX: Z11.7 Encounter for testing for latent tuberculosis infection (principal); Z11.59 Encounter for screening for other viral diseases; M45.9 Ankylosing spondylitis of unspecified sites in spine; K50.919 Crohn's disease, unspecified, with unspecified complications; M25.552 Pain in left hip
CPT/HCPCS: 36415; 72202; 80053; 85025; 85652; 86038; 86140; 86200; 86431; 86481; 86704; 86706; 86709; 86803; 86812; 87340; 99202

== ENCOUNTER 2023-04-15 08:37 | Outpatient (AMB) | payer OTHER, SELFPAY ==
[2023-04-15 08:41] VITALS: BP 126/74; PULSE 97; TEMP 35.9; O2SAT 98; BMI 24.4
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
== END 2023-04-15 09:29 | disposition home or self-care (01) ==
PROVIDERS: Visit Provider Student in an Organized Health Care Education/Training Program
DX: K50.919 Crohn's disease, unspecified, with unspecified complications (principal); M25.552 Pain in left hip
CPT/HCPCS: 99205

== ENCOUNTER 2023-05-05 07:54 | Outpatient (AMB) | payer OTHER, SELFPAY ==
[2023-05-05 07:58] VITALS: BP 112/62; PULSE 78; TEMP 35.9; O2SAT 98; BMI 24.8
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
== END 2023-05-05 08:22 | disposition home or self-care (01) ==
PROVIDERS: Visit Provider Student in an Organized Health Care Education/Training Program
DX: K50.919 Crohn's disease, unspecified, with unspecified complications (principal); M25.552 Pain in left hip; R74.01 Elevation of levels of liver transaminase levels
CPT/HCPCS: 99214

== ENCOUNTER → 2023-05-05 07:54 | Outpatient (BNVA) | payer OTHER, SELFPAY | PROVIDERS: Visit Provider Student in an Organized Health Care Education/Training Program | DX: K50.919 Crohn's disease, unspecified, with unspecified complications (principal); M25.552 Pain in left hip; R74.01 Elevation of levels of liver transaminase levels | CPT/HCPCS: 99212 ==

== ENCOUNTER 2023-05-28 14:40 | Outpatient (AMB) | payer OTHER, SELFPAY ==
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
[2023-05-28 15:03] VITALS: BP 121/76; PULSE 86; BMI 23.6
== END 2023-05-28 15:39 | disposition home or self-care (01) ==
PROVIDERS: Referring Provider Nurse Practitioner Family; Visit Provider Internal Medicine
DX: K50.919 Crohn's disease, unspecified, with unspecified complications (principal)
CPT/HCPCS: 99204

== ENCOUNTER → 2023-05-28 14:40 | Outpatient (BNVA) | payer OTHER, SELFPAY | PROVIDERS: Visit Provider Internal Medicine | DX: K50.919 Crohn's disease, unspecified, with unspecified complications (principal) | CPT/HCPCS: 99202 ==

== ENCOUNTER 2023-06-11 14:07 | Outpatient (REF) | payer OTHER, SELFPAY ==
[2023-06-11 16:21] LABS: C Reactive Protein < 0.10 mg/dL (< or = 0.50); Iron 131 mcg/dL (45-160); Percent Iron Saturation 52 % (15-50); Total Iron Binding Capacity 252 mcg/dL (228-428); Unsaturated Iron Binding 121 ug/dL
[2023-06-11 16:39] LABS: Ferritin 194 ng/mL (20-250)
[2023-06-11 16:51] LABS: Vitamin B12 516 pg/mL (200-900)
[2023-06-12 04:23] LABS: Hepatitis A Antibody IgG Nonreactive (Nonreactive); ~Hepatitis A Antibody IgG 0.33 S/CO (0.00-0.99)
[2023-06-12 04:24] LABS: HBS Num1 21.18 mIU/mL (0-7.99); HBc Num1 0.21 S/CO (0.00-0.79); HBsAGNum1 0.43 S/CO (0.00-0.99); HIV AB/AG Nonreactive (Nonreactive); HIV Num 1 0.06 S/CO (0.00-0.99); Hepatitis B Core Antibody Nonreactive (Nonreactive); Hepatitis B Surface Antigen Negative (Negative); ~Hepatitis B Surface Antibody REACTIVE (Nonreactive)
[2023-06-12 04:26] LABS: ~HepC Num1 0.15 S/CO (0.00-0.79); ~Hepatitis C Antibody Nonreactive (Nonreactive)
[2023-06-12 14:19] LABS: Hepatitis B Viral DNA Qn - cp NOT DETECTED Log IU/mL (NOT DETECTED); Hepatitis B Viral DNA Qn-IU/mL NOT DETECTED (NOT DETECTED)
[2023-06-14 09:23] LABS: Immunoglobulin A 291 mg/dL (47-310)
[2023-06-14 10:34] LABS: TS Negative Control Passed; TS Panel A 0; TS Panel B 0; TS Positive Control Passed; TSpotTB Negative (Negative)
[2023-06-14 22:33] LABS: Lyme Abs Screen <0.90 index
[2023-06-29 20:28] LABS: TPMT Activity 14
== END 2023-06-11 14:08 | disposition home or self-care (01) ==
LOC: HO.LAB 14:07
PROVIDERS: Student in an Organized Health Care Education/Training Program; Visit Provider Internal Medicine
DX: K50.90 Crohn's disease, unspecified, without complications (principal); M25.552 Pain in left hip
CPT/HCPCS: 36415; 80145; 82306; 82542; 82607; 82728; 82746; 82784; 83540; 84433; 86140; 86481; 86617; 86618; 86704; 86706; 86708; 86803; 87340; 87389; 87517

== ENCOUNTER 2023-08-17 10:41 | Day surgery (SDC) | payer OTHER, SELFPAY ==
--- NOTE | 2023-08-16 12:02 | HO.ANESPROP2 ---
Documented by User: Agustina Byrne NP 08/16/23 12:03 HPI - Anesthesia Eval Consult details Narrative: 37yo M for Colonoscopy PMFSH Active Problems Active Problems: All Active Problems Vitamin D deficiency (Acute) Transaminitis (Acute) Left hip pain (Acute) Crohn's disease (Acute) Past Medical History Medical History Closed left femoral fracture Urinary retention Rheumatoid arthritis Asthma Crohn's disease Left hip pain Family History Family History Mother Family history of rheumatoid arthritis Rheumatoid arthritis Father CHF (congestive heart failure) Maternal Grandmother Crohn's colitis Family history of problems with anesthesia: No Surgical History Surgical History Hx of colonoscopy S/P arthrocentesis History of Problems with Anesthesia: No Social History Social History Household Members: None Housing: Apartment Do you presently have visiting nurse or other home services: No Alcohol intake: current Alcohol intake frequency: holidays/special occasions only Patient Tobacco Use Status: Current someday Tobacco user Tobacco use type: Cigarette Smoked in Last 30 Days: Yes Patient Interested in Nicotine Replacement: No Substance Use Type: Marijuana Substance Use Frequency: Occasionally Are you DNR?: No Advance Directives: No Advance Directives Information Provided: Yes Nutrition Risks: No Nutritional Risk service: No Current occupational status: employed 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 Meds Allergies Allergy/AdvReac Type Severity Reaction Status Date / Time cefaclor [From Ceclor] Allergy Unknown Rash Verified 08/17/23 11:02 Pertussis Vaccines Allergy Unknown Hives Verified 08/17/23 11:02 chlorine Allergy Unknown hives Uncoded 08/17/23 11:02 Home Medications ?Medication ?Instructions ?Recorded ?Confirmed ?Last Taken ?Type acetaminophen 325 mg tablet 650 mg PO Q6H PRN Pain 12/21/22 08/17/23 Unknown History ibuprofen 400 mg tablet 400 mg PO Q6H PRN Pain (Scale 12/21/22 08/17/23 Unknown History Score 1-3) oxymetazoline 0.05 % nasal spray 2 spray intranasal Q12H PRN Nasal 12/21/22 08/17/23 Unknown History Congestion Exam Pertinent Lab Results Pertinent Lab Results: Laboratory Tests 04/15/23 09:56 WBC 5.9 Hgb 15.6 Hct 46.6 Plt Count 270 D Sodium 141 Potassium 4.4 Chloride 107 Carbon Dioxide 28 BUN 18 H Creatinine 1.22 Assessment and Plan Assessment Anesthesia Assessment: Chart Reviewed Final Anesthetic Review Family History of Problems with Anesthesia: No History of Problems with Anesthesia: No Documented by User: Brenna Beltran MD 08/17/23 11:18 [facility] Past Medical History Medical History Closed left femoral fracture Urinary retention Rheumatoid arthritis Asthma Crohn's disease Left hip pain Family History Family History Mother Family history of rheumatoid arthritis Rheumatoid arthritis Father CHF (congestive heart failure) Maternal Grandmother Crohn's colitis Surgical History Surgical History Hx of colonoscopy S/P arthrocentesis Social History Social History Household Members: None Housing: Apartment Do you presently have visiting nurse or other home services: No Alcohol intake: current Alcohol intake frequency: holidays/special occasions only Patient Tobacco Use Status: Current someday Tobacco user Tobacco use type: Cigarette Smoked in Last 30 Days: Yes Patient Interested in Nicotine Replacement: No Substance Use Type: Marijuana Substance Use Frequency: Occasionally Are you DNR?: No Advance Directives: No Advance Directives Information Provided: Yes Nutrition Risks: No Nutritional Risk service: No Current occupational status: employed 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 Meds Allergies Allergy/AdvReac Type Severity Reaction Status Date / Time cefaclor [From Ceclor] Allergy Unknown Rash Verified 08/17/23 11:02 Pertussis Vaccines Allergy Unknown Hives Verified 08/17/23 11:02 chlorine Allergy Unknown hives Uncoded 08/17/23 11:02 Home Medications ?Medication ?Instructions ?Recorded ?Confirmed ?Last Taken ?Type acetaminophen 325 mg tablet 650 mg PO Q6H PRN Pain 12/21/22 08/17/23 Unknown History ibuprofen 400 mg tablet 400 mg PO Q6H PRN Pain (Scale 12/21/22 08/17/23 Unknown History Score 1-3) oxymetazoline 0.05 % nasal spray 2 spray intranasal Q12H PRN Nasal 12/21/22 08/17/23 Unknown History Congestion Exam Airway Mallampati Class: II TM Dist: >3cm Neck ROM: Full Loose/Missing/Broken Teeth: Yes and Upper Heart: RRR Lungs: CTA Assessment and Plan Assessment Anesthesia Assessment: Anesthesia Plan Discussed Final Anesthetic Review NPO: Yes ASA Class: II Final Preanesthetic Review: Meds/Allgs Chart Reviewed, Consent Obtained/Reviewed and Anes Risks/Benef Reviewed Patient Risk: Low Procedure Risk: Low Anesthetic Plan Anesthetic Plan: MAC: Disposition: Standard PACU
[2023-08-17 11:02] VITALS: BMI 23.9
--- NOTE | 2023-08-17 11:12 | P.OPN-COLO_ITS ---
Colonoscopy Operative Note Operative Note Date of Service: 08/17/23 Narrative: Procedure: Colonoscopy Indication: Crohns Endoscopist: Sarah Tavarez MD Anesthesia Provider: Dr Bettina Beltran Anesthesia type: MAC Instrument: Olympus [id number]-[id number] Consent: Indication, risks vs benefits, and alternatives were discussed with the patient who gave written informed consent to proceed. EKG, pulse, pulse oximetry and blood pressure were monitored throughout the procedure. Please see anesthesia flowsheet. Procedure: The patient was brought to the procedure room and placed in the left lateral decubitus position. IV medications were administered by the anesthesia provider in attendance. A digital rectal exam was performed which was normal. A distal attachment cap was affixed to the tip of the colonoscope which was then inserted through the anus and advanced through the colon to the cecum at 70 cm,and terminal ileum up to 90 cm. Appendiceal orifice and ileocecal valve were identified. Mucosa was carefully examined under high definition white light as the instrument was slowly withdrawn in a retrograde panoramic fashion. Retroflexion was performed in rectum. The procedure was not difficult. There were no immediate obvious complications. The quality of the prep was BBPS: 3+3+3 = excellent Withdrawal time 13 minutes. Limitations: No limitations. Findings: Mucosa: Normal to cecum and terminal ileum. T.I was intubated 20 cm deep and appeared endoscopically normal. q10 cm cold forceps biopsies were taken from the colon and sent for histology for dysplasia screening. Protruding lesions: * Medium internal hemorrhoids [without] stigmata of recent bleeding. Impression: 1. Normal colon and terminal ileum mucosa 2. Internal hemorrhoids Recommendations: - Follow path results. - Cont Tatiira as is - Repeat colonoscopy in 1-2 years for IBD dysplasia screening.
[2023-08-17] MEDS: Lactated Ringers 1,000 ML 100 ML IVCONT (11:13)
--- NOTE | 2023-08-17 11:19 | MHC.SHP ---
Pre-Procedural Eval Section A - 24 Hr Update-Section A only Date of Service: 08/17/23 Section B - Complete if H&P > 30 days Chief Complaint: Crohn's disease, unspecified, Details of Present Illness: Left hip pain Closed left femoral fracture Urinary retention Rheumatoid arthritis Asthma Crohn's disease Surgical History (Updated 05/28/23 @ 14:58 by Yady Masters) S/P arthrocentesis Present Medications: see Short Stay Collaborative assessment Allergies: Allergies Allergy/AdvReac Type Severity Reaction Status Date / Time cefaclor [From Ceclor] Allergy Unknown Rash Verified 08/17/23 11:02 Pertussis Vaccines Allergy Unknown Hives Verified 08/17/23 11:02 chlorine Allergy Unknown hives Uncoded 08/17/23 11:02 Review of Systems Review of Systems Comment: 10 point ROS negative Exam Exam Comment: Gen appear: No acute distress HEENT: no icterus Chest: No overt resp distress Abd: soft, nontender, nondistended Psych: Stable affect, answering questions appropriately Neuro: A/Ox3 noted to move all extremities spontaneously Ext: no peripheral edema Plan Diagnosis/Plan: Unchanged I have reviewed the history and physical and performed a pertinent physical examination on my patient. No changes have occurred unless specified. Time Spent With Patient Time: Total time managing care of this patient today ____ minutes.
[2023-08-17 11:27] VITALS: BP 127/85; PULSE 76; RESP 18; TEMP 36.8; O2SAT 96
[2023-08-17 12:52] VITALS: BP 105/66; PULSE 68; RESP 18; TEMP 36.3; O2SAT 97
[2023-08-17 13:07] VITALS: BP 114/75; PULSE 78; RESP 18; TEMP 36.3; O2SAT 97
== END 2023-08-17 13:57 | disposition home or self-care (01) ==
PROVIDERS: Visit Provider Internal Medicine
PROC: 0DJD8ZZ Inspection of Lower Intestinal Tract, Via Natural or Artificial Opening Endoscopic (ICD-10-PCS; CPT 45378; principal; 2023-08-17 13:10)
DX: K50.00 Crohn's disease of small intestine without complications (principal); K64.8 Other hemorrhoids; Z79.620 Long term (current) use of immunosuppressive biologic; Z88.8 Allergy status to other drugs, medicaments and biological substances
CPT/HCPCS: 45380; 88305; J2704

== ENCOUNTER → 2023-08-17 10:41 | Outpatient (BNV) | payer OTHER, SELFPAY | PROVIDERS: Visit Provider Internal Medicine | DX: K50.919 Crohn's disease, unspecified, with unspecified complications (principal); D12.6 Benign neoplasm of colon, unspecified; K64.8 Other hemorrhoids | CPT/HCPCS: 45380 ==

== ENCOUNTER 2023-08-25 10:59 | Outpatient (REF) | payer OTHER, SELFPAY ==
[2023-08-25 13:02] LABS: Vitamin D 25-OH Total 48.3 ng/mL (>30)
== END 2023-08-25 11:00 | disposition home or self-care (01) ==
LOC: HO.LAB 10:59
PROVIDERS: PCP Internal Medicine; Visit Provider Internal Medicine
DX: K50.919 Crohn's disease, unspecified, with unspecified complications (principal); E55.9 Vitamin D deficiency, unspecified
CPT/HCPCS: 36415; 82306; 99212

== ENCOUNTER 2023-08-25 10:59 | Outpatient (AMB) | payer OTHER, SELFPAY ==
[2023-08-25 11:04] VITALS: BP 122/94; PULSE 88; BMI 23.1
--- NOTE | 2023-08-25 11:04 | MHC.OFFVIS ---
Vital Signs 08/25/23 11:04 Height 5 ft 9 in Weight 156 lb 8.451 oz BMI 23.1 BP 122/94 H Blood Pressure Location Lt brachial Position Sitting Pulse 88 Intake Visit Reasons: 3 month follow up Intake Note: Sky presents in the office as a 3 month follow up. CC: HE still has concerns with his Vit D and he has not had a chance to get his blood work done. 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 Pt was prevously in [facility] and moved to [place] in 2020 however has not been seen by a GI locally. IBD history: Type: Crohns Location: Small intestine Age/year of diagnosis: 2006; 19 y.o (was having bloody diarrhea, abd pain and fatigue) Previous medications: mesalamine oral ([id number]), Entocort intermittent courses, Started humira 2011 Current medications: Humira q2w (last dose 05/15/2023) Prev surgeries: None Recent endoscopy: Recalls [address] Victoriano Roblero ([facility]) EIM: None Fam hx: Grandmother - Crohns. Current sx: No abd pain. Has 1-2 BMs/day which are soft with occ runs mitra related to diet. No blood in stool. No night time sx. Some urgency. Does not smoke. Drinks infrequently. No NSAID use. 08/17/23 - Colonoscopy: Mucosa: Normal to cecum and terminal ileum. T.I was intubated 20 cm deep and appeared endoscopically normal. q10 cm cold forceps biopsies were taken from the colon and sent for histology for dysplasia screening. Protruding lesions: Medium internal hemorrhoids [without] stigmata of recent bleeding. Impression: 1. Normal colon and terminal ileum mucosa 2. Internal hemorrhoids Path: A. Colon, 70 cm, biopsy: Colonic mucosa within normal limits. B. Colon, 60 cm, biopsy: Colonic mucosa within normal limits. C. Colon, 50 cm, biopsy: Colonic mucosa within normal limits. D. Colon, 40 cm, biopsy: Focal pericryptal lymphohistiocytic inflammation; otherwise colonic mucosa within normal limits. E. Colon, 30 cm, biopsy: Colonic mucosa within normal limits. F. Colon, 20 cm, biopsy: Colonic mucosa within normal limits. G. Colon, 10 cm, biopsy: Colonic mucosa within normal limits. Comment: The focus of lymphohistiocytic inflammation in part D is likely secondary to crypt injury. Otherwise, no evidence of fully developed chronic injury is present. No dysplasia is seen. 08/25/23: No acute gastrointestinal complaints. He is still worried about ? toxicity from vitamin-D. A repeat level was ordered but patient has not had the chance to get this done yet. [facility] Medical History Closed left femoral fracture Urinary retention Rheumatoid arthritis Asthma Crohn's disease Left hip pain Surgical History Hx of colonoscopy S/P arthrocentesis Family History Mother Family history of rheumatoid arthritis Rheumatoid arthritis Father CHF (congestive heart failure) Maternal Grandmother Crohn's colitis Social History Household Members: None Housing: Apartment Do you presently have visiting nurse or other home services: No Alcohol intake: current Alcohol intake frequency: holidays/special occasions only Patient Tobacco Use Status: Current someday Tobacco user Tobacco use type: Cigarette Substance Use Type: Marijuana service: No Current occupational status: employed 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 Review of Systems Const All systems reviewed & are unremarkable except as noted in HPI and below Physical Exam Vital Signs: Last Vital Signs Pulse 88 08/25/23 11:04 BP 122/94 H 08/25/23 11:04 BMI result Body Mass Index 23.1 No acute distress Nonicteric Abdomen soft, nondistended Alert and oriented x3, uses a cane to ambulate Assessment & Plan Assessment & Plan (1) Crohn's disease: Code(s): K50.90 - Crohn's disease, unspecified, without complications Category: Medical Qualifiers: Gastrointestinal tract location: unspecified location Digestive disease complication type: unspecified complication Qualified Code(s): K50.919 - Crohn's disease, unspecified, with unspecified complications Plan - Disease and therapy: In deep remission. - continue Humira as is - Will be due for repeat labs for monitoring in 6 months - Nutrition: Iron and B12 normal. - Immunization: Advised to stay up to date on age related vaccinations including Covid-19 and Influenza. Avoid live vaccines. - Bone Health: No predisposing factors for osteoporosis such as steroid use or fam hx. Low vitamin-D, but patient is hesitant to replete at full dose due to concerns of vitamin-D toxicity. Repeat levels ordered, but pending as patient has not got to the lab yet. - Cancer prevention: IBD dysplasia: Next colonoscopy due in 2025. Sun safety discussed, including use of protective clothing and SPF. Follow up in 6 months ? Coding Level of Care Code Est Pt Level 4 (59607) Diagnoses Crohn's disease with complication, unspecified gastrointestinal tract location K50.919 Gastrointestinal tract location: unspecified location Digestive disease complication type: unspecified complication
== END 2023-08-25 12:08 | disposition home or self-care (01) ==
PROVIDERS: PCP Internal Medicine; Visit Provider Internal Medicine
DX: K50.919 Crohn's disease, unspecified, with unspecified complications (principal)
CPT/HCPCS: 99214

== ENCOUNTER 2023-09-03 09:59 | Outpatient (AMB) | payer OTHER, SELFPAY ==
[2023-09-03 10:03] VITALS: BP 110/80; PULSE 80; O2SAT 98; BMI 23.0
--- NOTE | 2023-09-03 10:03 | MHC.PC.OV ---
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 Accompanied by: Self / Same As Patient Allergies cefaclor [From Ceclor] Allergy (Unknown, Verified 03/23/24 23:40) Rash Pertussis Vaccines Allergy (Unknown, Verified 03/23/24 23:40) Hives chlorine Allergy (Unknown, Uncoded 03/23/24 23:40) hives Medication List - Last Reconciled 09/03/23 by Chip Smith MD acetaminophen 650 mg PO Q6H PRN adalimumab (Humira(CF) Pen) 40 mg (0.4 mL) subcut Q2W cholecalciferol (vitamin D3) 1,250 mcg PO QWEEK 90 days fluticasone propionate 50 mcg/actuation 1 spray intranasal DAILY ibuprofen 400 mg PO Q6H PRN oxymetazoline 0.05% 2 sprays intranasal Q12H PRN Tobacco use date assessed: 09/03/23 Dental Screening Dental Screen Date: 09/03/23 Did you have a dental visit in the last 12 months?: No Did you have a dental problem in the last 6 months where you did not have access to dental care?: No Was dental information given to patient?: Patient has dentist HPI 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 HPI Details Patient comes in today for his annual physical examination and to establish care - is a new patient to the practice Patient states that he feels okay He denies any headaches or dizziness Denies any chest pains, no shortness of breath No nausea/vomiting, no abdominal pain No change in bowel habits noted - states that his Crohn's disease is well controlled on his current medication (Humira) and he continues to follow-up with GI regularly for continuing management of his inflammatory bowel disease He denies any acute urinary symptoms [facility] Medical History (Updated 03/23/24 @ 23:48 by Chip Smith MD) Allergic rhinitis Closed left femoral fracture Urinary retention Rheumatoid arthritis Asthma Crohn's disease Left hip pain Surgical History Hx of colonoscopy S/P arthrocentesis Family History Mother Family history of rheumatoid arthritis Rheumatoid arthritis Father CHF (congestive heart failure) Maternal Grandmother Crohn's colitis Social History Household Members: None Housing: Apartment Do you presently have visiting nurse or other home services: No Alcohol intake: current Alcohol intake frequency: holidays/special occasions only Patient Tobacco Use Status: Never used Tobacco Tobacco use type: Cigarette e-Cigarette/Vaping Use: Former Use Substance Use Type: Marijuana Advance Directives Date on File: 12/28/22 service: No Current occupational status: employed 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 1. Little interest or pleasure in doing things: not at all 2. Feeling down, depressed, or hopeless: not at all 3. Trouble falling or staying asleep, or sleeping too much: not at all 4. Feeling tired or having little energy: not at all 5. Poor appetite or overeating: not at all 6. Feeling bad about yourself - or that you are a failure or have let yourself or your family down: not at all 7. Trouble concentrating on things, such as reading the newspaper or watching television: not at all 8. Moving or speaking so slowly that other people could have noticed. Or the opposite - being so fidgety or restless that you have been moving around a lot more than usual: not at all 9. Thoughts that you would be better off or of hurting yourself in some way: not at all Total score: 0 Depression Screening Interpretation: Negative Depression Screening Done: Yes [id number] - PHQ-9 Billing: Yes Source: Developed by Drs. Rigo Palmer, Danika Palumbo, Kiran Mazariegos and colleagues, with an educational neno from [employer]. Thrive Questionnaire Date Thrive assessed: 09/03/23 I am a: Patient What is your living situation today?: I have a steady place to live Within the past 12 months, did the food you bought not last and you didn't have the money to get more?: Never true Within the past 12 months, did you worry whether your food would run out before you got money to buy more?: Never true Do you have trouble paying for medicines?: No Do you have trouble getting transportation to medical appointments?: No Do you have trouble paying your heating and electricity bill?: No Do you have trouble taking care of your child, family member or friend?: No Do you have trouble with day-to-day activities such as bathing, preparing meals, shopping, managing finances, etc.?: No Are you currently unemployed and looking for a job?: No Are you interested in more education?: No Please select the resources that you would like help with: None Currently or been in a relationship where the following occur: no concerns reported THRIVE Score: 0 AUDIT C Alcohol Use Questionnaire (AUDIT-C) 1. How often do you have a drink containing alcohol?: Never 3. How often do you have six or more drinks on one occasion?: Never Total Score: 0 Score Reviewed/Action Taken: Yes JANNA-7 AMB Questionnaire JANNA-7 Date JANNA - 7 assessed: 09/03/23 Feeling nervous, anxious, or on edge: 0 = Not at all Not being able to stop or control worryin = Not at all Worrying too much about different things: 0 = Not at all Trouble relaxin = Not at all Being so restless that it is hard to sit still: 0 = Not at all Becoming easily annoyed or irritable: 0 = Not at all Feeling afraid as if something awful might happen: 0 = Not at all Total JANNA-7 score (0-4 normal; 5-9 mild; 10-14 moderate; 15-21 severe): 0 Source: Developed by Drs. Rigo Palmer, Danika Palumbo, Kiran Mazariegos and colleagues, with an educational neno from [employer]. Review of Systems Const Denies chills, Denies fatigue, Denies fever(s), Denies headache(s), Denies malaise and Denies weakness Eyes Denies blurry vision, Denies change in vision, Denies irritation and Denies itchy eyes ENT Denies dysphagia, Denies dizziness, Denies otalgia, Denies headache(s), Denies nasal congestion, Denies neck pain, Denies odynophagia and Denies sore throat Card Denies chest pain, Denies rapid heart rate, Denies irregular heart rhythm, Denies palpitations and Denies dyspnea Resp Denies chest congestion, Denies cough, Denies dyspnea and Denies wheezing GI Denies abdominal pain, Denies bloating, Denies constipation, Denies dysphagia, Denies heartburn, Denies diarrhea, Denies nausea, Denies odynophagia and Denies vomiting Denies hematuria, Denies difficulty urinating, Denies dysuria, Denies urinary frequency and Denies urinary urgency Musc Denies back pain, Denies arthralgias, Denies joint swelling, Denies muscle weakness and Denies neck pain Skin/Breast Denies change in pigmentation, Denies lesions, Denies rash and Denies unusual bruising Neuro Denies dizziness, Denies headache(s), Denies paresthesias and Denies weakness Endo Denies fatigue and Denies palpitations Aller/Immun Denies itchy eyes and Denies wheezing Physical exam (Primary Care) Vital Signs: Last Vital Signs Pulse 80 09/03/23 10:03 BP 110/80 09/03/23 10:03 Pulse Ox 98 09/03/23 10:03 Oxygen Delivery Method Room Air 09/03/23 10:03 BMI result Body Mass Index 23.0 Tobacco/Smoking Status: Tobacco use Status Tobacco use date assessed 09/03/23 09/03/23 10:05 Patient Tobacco Use Status Never used Tobacco 09/03/23 10:13 Tobacco use type 09/03/23 10:13 e-Cigarette/Vaping Use Former Use 09/03/23 10:13 PHQ-9: PHQ-9 Score PHQ-9: Total score 0 09/03/23 11:11 Depression Screening Interpretation: Negative Thrive Assessment: Date of Thrive Assessment Date Thrive assessed 09/03/23 09/03/23 10:05 Currently or been in a relationship where the following occur: no concerns reported Const General: no acute distress, alert and awake Orientation/consciousness: patient oriented x3 HENMT Head: Yes normocephalic and Yes atraumatic Ears: external ears normal, TM's normal bilaterally and EAC's normal General nose exam: No nasal discharge present Face and sinus: Yes normal facial exam and Yes sinuses nontender Teeth and gingiva: dentition normal Throat: Yes posterior oropharynx normal and Yes tonsils normal (no TP congestion) Eyes Eyelids: Yes eyelids normal Conjunctivae: conjunctivae normal Pupils: Equal, round and reactive pupils present EOM: EOMs intact bilaterally Neck Neck: Yes no lymphadenopathy and Yes supple Thyroid: Thyroid normal Resp Auscultation: clear to auscultation bilaterally, no rales and no wheezes Cardio Rate: regular rate Rhythm: regular rhythm Heart sounds: no murmurs GI Palpation (GI): Soft to palpation, nontender and No hepatosplenomegaly present Auscultation: normal bowel sounds General: Yes no CVA tenderness Back/Spine/Pelvis Back: no CVA tenderness Thoracic/Lumbar Spine: thoracic and lumbar spine normal to inspection Skin Lesions: no lesions Rashes: no rashes Neuro General: patient oriented x3, moves all extremities, no focal motor deficits and CN's II-XI intact bilaterally Cranial nerves: Yes Equal, round and reactive pupils present Cognition (Neuro): normal cognition Gait exam (Neuro): Normal gait present Extrem General: Yes no clubbing, cyanosis or edema Coding Level of Care Code New Pt Prev Care 18-39yr([id number] Diagnoses Annual physical exam Z00.00 Crohn's disease with complication, unspecified gastrointestinal tract location K50.919 Gastrointestinal tract location: unspecified location Digestive disease complication type: unspecified complication Vitamin D deficiency E55.9 Allergic rhinitis, unspecified seasonality, unspecified trigger J30.9 Allergic rhinitis trigger: unspecified Allergic rhinitis seasonality: unspecified
== END 2023-09-03 11:23 | disposition home or self-care (01) ==
PROVIDERS: PCP Internal Medicine; Visit Provider Internal Medicine
DX: Z00.00 Encounter for general adult medical examination without abnormal findings (principal); K50.919 Crohn's disease, unspecified, with unspecified complications; E55.9 Vitamin D deficiency, unspecified; J30.9 Allergic rhinitis, unspecified
CPT/HCPCS: 99499

== ENCOUNTER 2023-09-03 11:36 | Outpatient (REF) | payer OTHER, SELFPAY ==
[2023-09-03 12:49] LABS: Alanine Aminotransferase 49 U/L (0-40); Albumin Level 4.6 g/dL (3.5-5.0); Alkaline Phosphatase 59 U/L (39-117); Anion Gap 11 (12-20); Aspartate Amino Transferase 32 U/L (5-37); Bilirubin Total 0.4 mg/dL (0.0-1.0); Blood Urea Nitrogen 13 mg/dL (9-16); Calcium 10.2 mg/dL (8.4-10.2); Carbon Dioxide 29 mmol/L (22-29); Chloride 106 mmol/L (96-108); Cholesterol 201 mg/dL (<200); Estimated Glomerular Filt Rate > 60; Glucose Fasting 88 mg/dL (60-99); HDL Cholesterol 39 mg/dL (>40); LDL Cholesterol Calculated 115 mg/dL (<100); Potassium 4.4 mmol/L (3.3-5.1); Sodium 142 mmol/L (135-145); Total Protein 7.5 g/dL (6.5-8.0); Triglycerides 235 mg/dL (<150)
== END 2023-09-03 11:37 | disposition home or self-care (01) ==
LOC: HO.LAB 11:36
PROVIDERS: PCP Internal Medicine; Visit Provider Internal Medicine
DX: Z00.00 Encounter for general adult medical examination without abnormal findings (principal); E78.00 Pure hypercholesterolemia, unspecified
CPT/HCPCS: 36415; 80053; 80061

== ENCOUNTER 2023-10-27 08:28 | Outpatient (AMB) | payer OTHER, SELFPAY ==
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
[2023-10-27 08:36] VITALS: BP 115/80; PULSE 80; RESP 18; O2SAT 98; BMI 23.9
== END 2023-10-27 08:56 | disposition home or self-care (01) ==
PROVIDERS: PCP Internal Medicine; Visit Provider Student in an Organized Health Care Education/Training Program
DX: K50.919 Crohn's disease, unspecified, with unspecified complications (principal)
CPT/HCPCS: 99213

== ENCOUNTER → 2023-10-27 08:28 | Outpatient (BNVA) | payer OTHER, SELFPAY | PROVIDERS: PCP Internal Medicine; Visit Provider Student in an Organized Health Care Education/Training Program | DX: K50.919 Crohn's disease, unspecified, with unspecified complications (principal) | CPT/HCPCS: 99212 ==

== ENCOUNTER 2023-11-24 12:57 | Outpatient (AMB) | payer OTHER, SELFPAY ==
--- NOTE | 2023-11-24 12:59 | MHC.OFFWIV ---
Intake Vital Signs 11/24/23 13:00 Weight 164 lb BP 118/74 Blood Pressure Location Rt brachial Position Sitting Pulse 90 Pulse Source Pulse Oximeter Pulse Oximetry (%) 98 Oxygen Delivery Method Room Air Intake Visit Reasons: EP- LT abdominal pain Intake Note: Patient here for left lower abdomen pain that has been present since yesterday. Pt denies any vomiting,nausea,diarrhea. Patient Tobacco Use Status: Never used Tobacco Allergies cefaclor [From Ceclor] Allergy (Unknown, Verified 11/24/23 13:01) Rash Pertussis Vaccines Allergy (Unknown, Verified 11/24/23 13:01) Hives chlorine Allergy (Unknown, Uncoded 11/24/23 13:01) hives Do you need a note to return to daycare/school/sports/work: No HPI HPI Comments History of Present Illness Details Patient is a 37-year-old male complaining of 2 days of sharp left lower abdominal pain. He denies any nausea, vomiting or diarrhea or fevers. He denies any change in his urinary habits states he has been passing flatus and moving his bowels as normal. States when he takes a deep breath, the pain is much worse. He denies a history of kidney stones or blood in his urine. He states he does have celiac disease but this is not the same kind of pain he gets with a celiac flare. [facility] Medical History Closed left femoral fracture Urinary retention Rheumatoid arthritis Asthma Crohn's disease Left hip pain Surgical History Hx of colonoscopy S/P arthrocentesis Family History Mother Family history of rheumatoid arthritis Rheumatoid arthritis Father CHF (congestive heart failure) Maternal Grandmother Crohn's colitis Social History Household Members: None Housing: Apartment Do you presently have visiting nurse or other home services: No Alcohol intake: current Alcohol intake frequency: holidays/special occasions only Patient Tobacco Use Status: Never used Tobacco e-Cigarette/Vaping Use: Former Use Substance Use Type: Marijuana service: No Current occupational status: employed 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 Cognitive needs: Yes Hearing needs: No Vision needs: Yes (glasses) Review of Systems Const All systems reviewed & are unremarkable except as noted in HPI and below Physical Exam Vital Signs: Last Vital Signs Pulse 90 11/24/23 13:00 BP 118/74 11/24/23 13:00 Pulse Ox 98 11/24/23 13:00 Oxygen Delivery Method Room Air 11/24/23 13:00 Const General: cooperative, healthy appearing, comfortable, no acute distress and well developed Orientation/consciousness: patient oriented x3 Limitations: no limitations HEENT Head: Yes normal to inspection Eyes General: appearance normal, both eyes and all related structures Neck Neck: Yes normal visual inspection and Yes full ROM Resp Effort & Inspection: normal respiratory effort and able to speak in complete sentences Auscultation: clear to auscultation bilaterally Cardio Rate: regular rate Rhythm: regular rhythm Heart sounds: normal S1 and S2 GI Inspection: Yes normal to inspection Palpation (GI): Soft to palpation and Tenderness to palpation present (GI) in the LLQ General: Yes CVA tenderness (left side) on the left Back/Spine/Pelvis Back: CVA tenderness (left side) Skin General skin exam: no rashes or lesions noted Neuro General: patient oriented x3 Extrem General: Yes normal to inspection Assessment & Plan Assessment & Plan (1) Kidney stone on left side: Code(s): N20.0 - Calculus of kidney Plan: Patient unable to produce a urine specimen for UA to check for blood in his urine. Vital signs are stable with physical exam findings positive CVA tenderness on the left side, likely a kidney stone. Sent patient to [facility] ED for further workup to determine if kidney stone +/- hydronephrosis. Plan see above Coding Level of Care Code Est Pt Level 5 (67891) Diagnoses Kidney stone on left side N20.0
[2023-11-24 13:00] VITALS: BP 118/74; PULSE 90; O2SAT 98
== END 2023-11-24 14:08 | disposition home or self-care (01) ==
PROVIDERS: PCP Internal Medicine; Visit Provider Physician Assistant
DX: N20.0 Calculus of kidney (principal)
CPT/HCPCS: 99215

== ENCOUNTER 2023-11-24 14:21 | Emergency (ER) | payer OTHER, SELFPAY ==
--- NOTE | ~2023-11-24 | CT_ITS ---
EXAMINATION: CT ABDOMEN AND PELVIS WITHOUT CONTRAST CLINICAL INFORMATION: Left flank pain COMPARISON: None available. TECHNIQUE: Multidetector volumetric imaging was performed from the superior aspect of the liver through the pubic symphysis. Sagittal and coronal reformatted images were obtained on the technologist's workstation. This CT examination was performed using dose optimization techniques as appropriate, variously including the following: *Automated exposure control *Adjustment of mA and/or kV according to patient size (this includes techniques or standardized protocols for targeted exams where dose is matched to indication/reason for exam; i.e. extremities or head) *Use of iterative reconstruction technique DLP: 417 mGy-cm FINDINGS: LUNG BASES: The visualized lung bases are unremarkable. LIVER, GALLBLADDER, AND BILIARY TREE: The liver is normal in size, shape, and attenuation. No focal hepatic lesion or biliary ductal dilatation is present. The gallbladder is unremarkable with no evidence of radiopaque gallstones, gallbladder wall thickening, or obvious pericholecystic inflammatory changes. PANCREAS: Unremarkable. SPLEEN: Unremarkable. ADRENAL GLANDS: Unremarkable. KIDNEYS AND URETERS: The kidneys are normal in size, shape, and attenuation. No hydronephrosis, hydroureter, or calculi seen. No perinephric stranding. BLADDER: Unremarkable. GASTROINTESTINAL TRACT: The small and large bowel are unremarkable. There is mild inflammatory stranding is seen within the omentum adjacent to the left descending colon most consistent with epiploic appendagitis The appendix is unremarkable. ABDOMINAL WALL: No significant hernia is appreciated. LYMPH NODES: Normal. VASCULAR: Unremarkable. PELVIC VISCERA: Unremarkable. OSSEOUS STRUCTURES: Unremarkable. CT/CT abdomen pelvis wo IV con IMPRESSION: Mild inflammatory stranding adjacent to the left descending colon most consistent with epiploic appendagitis. No evidence of renal stone disease. Electronically signed by: Humberto Rivas MD 11/24/2023 05:09 PM EDT
--- NOTE | 2023-11-24 14:31 | ED_ITS ---
HPI - General Adult General Chief complaint: Abdominal Pain Stated complaint: l flank pain Time Seen by Provider: 11/25/23 00:10 Source: patient Mode of arrival: ambulatory Limitations: no limitations History of Present Illness ED Provider: Dr. Margareth Powers HPI narrative: patient comes to the emergency room complaining of left lower quadrant/left flank pain since yesterday. Patient denies any nausea vomiting or diarrhea, no fever or chills, no hematuria or dysuria. Patient denies any trauma Related Data Home Medications ?Medication ?Instructions ?Recorded ?Confirmed acetaminophen 325 mg tablet 650 mg PO Q6H PRN Pain 12/21/22 09/03/23 ibuprofen 400 mg tablet 400 mg PO Q6H PRN Pain (Scale 12/21/22 09/03/23 Score 1-3) oxymetazoline 0.05 % nasal spray 2 spray intranasal Q12H PRN Nasal 12/21/22 09/03/23 Congestion fluticasone propionate 50 1 spray intranasal DAILY 09/03/23 09/03/23 mcg/actuation nasal spray,suspension Previous Rx's ?Medication ?Instructions ?Recorded cholecalciferol (vitamin D3) 1,250 1,250 mcg PO QWEEK 90 days #13 caps 06/16/23 mcg (50,000 unit) capsule adalimumab 40 mg/0.4 mL 40 mg (0.4 mL) subcut Q2W #2 ea 09/15/23 subcutaneous pen kit (Humira(CF) Pen) hyoscyamine sulfate 0.125 mg tablet 0.125 mg PO QID PRN dyspepsia #14 11/25/23 tabs Allergies Allergy/AdvReac Type Severity Reaction Status Date / Time cefaclor [From [facility]] Allergy Unknown Rash Verified 11/24/23 14:37 Pertussis Vaccines Allergy Unknown Hives Verified 11/24/23 14:37 chlorine Allergy Unknown hives Uncoded 11/24/23 13:01 Review of Systems 2 Review of Systems: Constitutional : No Weight loss, No Fever, No Chills, No Night Sweats, No Fatigue, No Malaise ENT/Mouth : No Hearing loss, No Ear Pain, No Nasal Congestion, No Sinus Pain, No Hoarseness, No sore throat, No Rhinorrhea, No Swallowing Difficulty Eyes: No Eye Pain, No Swelling, No Redness, No Foreign Body, No Discharge, No Vision Changes Cardiovascular : No Chest Pain, No SOB, No Dyspnea on Exertion, No Orthopnea, No Edema, No Palpitations Respiratory : No Cough, No Sputum, No Wheezing, No Smoke Exposure, No Dyspnea Gastrointestinal : No Nausea, No Vomiting, No Diarrhea, No Constipation, No abdominal Pain, No Hematochezia, No Melena Genitourinary : no irregular bleeding, No Dysuria, No Urinary Frequency, No Hematuria, No Urinary Incontinence, No Urgency, complaining of left-sided Flank Pain, No Urinary Flow Changes, No Hesitancy Musculoskeletal : No joint pain, No Myalgias, No Joint Swelling Skin : No Skin Lesions, No rash Neuro : No Weakness, No Numbness, No Paresthesias, No Loss of Consciousness, No Dizziness, No Headache Psych : No Anxiety/Panic, No Depression, No SI/HI/AH/VH, No Social Issues, Heme/Lymph: No Bruising, No Bleeding,No Lymphadenopathy Endocrine : No Polyuria, No Polydipsia, No Temperature Intolerance [facility] Past Medical History Medical History Closed left femoral fracture Urinary retention Rheumatoid arthritis Asthma Crohn's disease Left hip pain Surgical History Hx of colonoscopy S/P arthrocentesis Family History Family History Mother Family history of rheumatoid arthritis Rheumatoid arthritis Father CHF (congestive heart failure) Maternal Grandmother Crohn's colitis Social History Social History Household Members: None Housing: Apartment Do you presently have visiting nurse or other home services: No Alcohol intake: current Alcohol intake frequency: holidays/special occasions only Patient Tobacco Use Status: Never used Tobacco e-Cigarette/Vaping Use: Former Use Substance Use Type: Marijuana Advance Directives: Yes Advance Directives on File: Yes Advance Directives Date on File: 12/28/22 Do you have a plan to hurt others: No Plan service: No Current occupational status: employed 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 Oriented X3. No acute distress. Eyes: Pupils equal, round and reactive to light. ENT: Pharynx normal. Neck: Normal inspection. Neck supple. No lymph nodes noted. No crepitus CVS: Normal heart rate and rhythm. Pulses normal. Normal S1 and S2 Respiratory: No respiratory distress. Breath sounds normal. No Wheezing. No rales Abdomen: Soft , very mild discomfort to palpation over left flank, No rigidity. No distention. Skin: Skin warm and dry. Normal skin color. Normal skin turgor. Extremities: No lower extremity edema. No Lacerations. No Rash Neuro: Oriented X 3. No motor deficit. No sensory deficit. Moving all extremities. No slurred speech. CN 2 through 12 grossly intact Psych: calm, cooperative, normal affect Course Course Course Narrative: RME, this is a rapid medical exam performed by Tayo Madrid please refer to primary provider for complete H&P- 37 year old male presents for evaluation left flank pain since last night. She was sent here for a kidney stone workup from urgent care. He has no history of stones. Plan for labs, UA, CT abdomen and pelvis Medical Decision Making Medical Decision Making MDM Narrative: my interpretation of labs: Normal hematology and chemistry, negative urinalysis - my interpretation of CT scan: No kidney stone - discussed with the patient that the radiology report shows mild inflammation in the left colon, consistent with epiploic appendagitis. Patient does have history of Crohn's, states it is well controlled with Humira - overall patient feels well to go home. Patient discharged in stable condition Differential Diagnosis Differential Diagnoses: The differential diagnosis associated with the presentation includes ( kidney stone, Crohn's disease, diverticulitis, musculoskeletal pain, epiploic appendagitis) Admission/Observation Consideration of admission/observation: Escalation of care including admission/observation considered ( given patient's past medical history and symptoms, observation was considered) Lab Data MDM Lab Attestation statement: I reviewed the patient's lab results. 11/24/23 14:43 11/24/23 14:43 Labs: Lab Results 11/24/23 11/24/23 Range/Units 14:43 23:01 WBC 8.1 (4.8-10.8) X10*3/uL RBC 4.62 (4.60-5.80) X10*6/uL Hgb 14.8 (14.0-18.0) g/dl Hct 41.9 L (42.0-52.0) % MCV 90.7 (80.0-98.0) fL MCH 32.0 (27.0-33.0) pg MCHC 35.3 (31.0-36.0) g/dl RDW 12.8 (11.0-16.0) % Plt Count 262 (160-400) X10*3/uL MPV 9.6 (9.4-12.4) fL Immature Gran % (Auto) 0.4 (0.0-0.4) % Neut % (Auto) 69.8 (45-73) % Lymph % (Auto) 21.8 (20-40) % [place] % (Auto) 7.1 (2-11) % Eos % (Auto) 0.0 (0-4) % Baso % (Auto) 0.9 (0-2) % Lymph # (Auto) 1.8 (1.2-4.9) X10*3/uL [place] # (Auto) 0.6 (0.1-1.2) X10*3/uL Eos # (Auto) 0.0 (0.0-0.4) X10*3/uL Baso # (Auto) 0.1 (0.0-0.2) X10*3/uL Abs Immat Gran (auto) 0.03 (0.00-0.03) X10*3/uL Absolute Neuts (auto) 5.6 (2.0-8.3) x10*3/uL Absolute Nucleated RBC 0.000 (0.0-0.012) X10*3/uL Nucleated RBC % (auto) 0.0 (0.0-0.2) /100WBC Sodium 138 (135-145) mmol/L Potassium 4.2 (3.3-5.1) mmol/L Chloride 104 (96-108) mmol/L Carbon Dioxide 29 (22-29) mmol/L Anion Gap 9 L (12-20) BUN 14 (9-16) mg/dL Creatinine 1.14 (0.5-1.4) mg/dL Estim Creat Clear Calc 88.7 Estimated GFR > 60 Random Glucose 94 (60-115) mg/dL Calcium 9.8 (8.4-10.2) mg/dL Urine Color Yellow Urine Appearance Clear Urine pH 6.0 (5.0-9.0) Ur Specific [place] 1.010 (1.005-1.025) Urine Protein Negative (Neg-Trace) mg/dL Urine Glucose (UA) Negative (Negative) mg/dL Urine Ketones Negative (Negative) mg/dL Urine Blood Negative (Negative) Urine Nitrite Negative (Negative) Ur Leukocyte Esterase Negative (Negative) Urine RBC 0-2 (0-2) /HPF Urine WBC 0-5 (0-5) /HPF Ur Squamous Epith Cells 0-2 (0-2) /HPF Urine Bacteria None Seen (None Seen) Hyaline Casts 0-2 (0-2) /LPF Independent Interpretation I performed an independent interpretation of an: CT Scan Radiology Impression Discussion of test interpretation with radiology: I have reviewed the radiologist's reading. Radiologist Impression: FINDINGS: LUNG BASES: The visualized lung bases are unremarkable. LIVER, GALLBLADDER, AND BILIARY TREE: The liver is normal in size, shape, and attenuation. No focal hepatic lesion or biliary ductal dilatation is present. The gallbladder is unremarkable with no evidence of radiopaque gallstones, gallbladder wall thickening, or obvious pericholecystic inflammatory changes. PANCREAS: Unremarkable. SPLEEN: Unremarkable. ADRENAL GLANDS: Unremarkable. KIDNEYS AND URETERS: The kidneys are normal in size, shape, and attenuation. No hydronephrosis, hydroureter, or calculi seen. No perinephric stranding. BLADDER: Unremarkable. GASTROINTESTINAL TRACT: The small and large bowel are unremarkable. There is mild inflammatory stranding is seen within the omentum adjacent to the left descending colon most consistent with epiploic appendagitis The appendix is unremarkable. ABDOMINAL WALL: No significant hernia is appreciated. LYMPH NODES: Normal. VASCULAR: Unremarkable. PELVIC VISCERA: Unremarkable. OSSEOUS STRUCTURES: Unremarkable. CT/CT abdomen pelvis wo IV con IMPRESSION: Mild inflammatory stranding adjacent to the left descending colon most consistent with epiploic appendagitis. No evidence of renal stone disease. Critical Care Time Critical Care Time Critical Care Time: Yes Total Critical Care Time: 35 Attestation: I have personally provided critical care time. Time includes review of lab data, radiology results, discussion with consultants, and monitoring for potential decompensation. Intervention performed as documented. Discharge Plan Discharge Clinical Impression: Abdominal pain Patient Disposition: Home, Self-Care Instructions: Abdominal Pain (ED) Additional Instructions: Please follow-up with your primary care physician tomorrow. If you have any worsening or new symptoms, please return to the emergency room or call 911 Prescriptions: New hyoscyamine sulfate 0.125 mg tablet 0.125 mg PO QID PRN (Reason: dyspepsia) Qty: 14 0RF No Action cholecalciferol (vitamin D3) 1,250 mcg (50,000 unit) capsule 1,250 mcg PO QWEEK 90 Days Qty: 13 0RF Humira(CF) Pen 40 mg/0.4 mL pen injector kit 40 mg subcut Q2W Qty: 2 0RF acetaminophen 325 mg Tablet 650 mg PO Q6H PRN (Reason: Pain) ibuprofen 400 mg Tablet 400 mg PO Q6H PRN (Reason: Pain (Scale Score 1-3)) oxymetazoline 0.05 % [place],Non-Aerosol 2 spray INTRANASAL Q12H PRN (Reason: Nasal Congestion) fluticasone propionate 50 mcg/actuation spray,suspension 1 spray intranasal DAILY Rx Instructions: administer into each nostril Print Language: Bangladeshi
[2023-11-24 14:34] VITALS: BP 125/90; PULSE 79; RESP 18; TEMP 36.8; O2SAT 98; BMI 24.5
[2023-11-24 14:46] LABS: MANUAL DIFF FLAG NO
[2023-11-24 14:47] LABS: Basophils Absolute Auto 0.1 X10*3/uL (0.0-0.2); Basophils Percent Auto 0.9 % (0-2); Hematocrit 41.9 % (42.0-52.0); Hemoglobin 14.8 g/dl (14.0-18.0); Imm Gran Abs Auto 0.03 X10*3/uL (0.00-0.03); Imm Gran Pct Auto 0.4 % (0.0-0.4); Lymphocytes Absolute Auto 1.8 X10*3/uL (1.2-4.9); Lymphocytes Percent Auto 21.8 % (20-40); Mean Corpuscular HGB Conc 35.3 g/dl (31.0-36.0); Mean Corpuscular Volume 90.7 fL (80.0-98.0); Mean Platelet Volume 9.6 fL (9.4-12.4); Monocytes Absolute Auto 0.6 X10*3/uL (0.1-1.2); Monocytes Percent Auto 7.1 % (2-11); Neutrophils Absolute Auto 5.6 x10*3/uL (2.0-8.3); Neutrophils Percent Auto 69.8 % (45-73); Platelet Count 262 X10*3/uL (160-400); Red Blood Count 4.62 X10*6/uL (4.60-5.80); Red Cell Distribution Width 12.8 % (11.0-16.0); White Blood Count 8.1 X10*3/uL (4.8-10.8)
[2023-11-24 15:10] LABS: Anion Gap 9 (12-20); Blood Urea Nitrogen 14 mg/dL (9-16); Calcium 9.8 mg/dL (8.4-10.2); Carbon Dioxide 29 mmol/L (22-29); Chloride 104 mmol/L (96-108); Creatinine Clr Calc Pharmacy 88.7; Estimated Glomerular Filt Rate > 60; Glucose Random 94 mg/dL (60-115); Potassium 4.2 mmol/L (3.3-5.1); Sodium 138 mmol/L (135-145)
[2023-11-24 17:54] VITALS: BP 116/84; PULSE 77; RESP 20; TEMP 36.7; O2SAT 98
[2023-11-24 23:03] VITALS: BP 145/96; PULSE 83; RESP 18; TEMP 36.6; O2SAT 99
[2023-11-24 23:11] LABS: Appearance Urine Clear; Color Urine Yellow; Glucose Urine UA Negative (Negative); Leukocyte Esterase Urine Negative (Negative); Nitrite Urine Negative (Negative); Urine Blood Negative (Negative); Urine Ketones Negative (Negative); Urine Protein Negative (Neg-Trace)
[2023-11-24 23:14] LABS: Bacteria Urine None Seen (None Seen); Hyaline Casts Urine 0-2 /LPF (0-2); RBC Urine 0-2 /HPF (0-2); Squamous Epithelial Cell Urine 0-2 /HPF (0-2); WBC Urine 0-5 /HPF (0-5)
[2023-11-25] VITALS: BP 121/88; PULSE 79; RESP 16; TEMP 36.6; O2SAT 96
--- NOTE | 2023-11-25 01:03 | PC.NURSE ---
Pt is a 37 y/o male who presents for evaluation of left-sided abd/flank pain that started on Wednesday. No similar episodes reported in the past, no history of kidney stones. Pt became worse and pt presented at in [place] for evaluaton at approximately 1300 hours on Wed ? kidney stone and was told to come to the ED for further evaluation. No blood in urine visible. Food and fluid intake WNL for pt. No fever or nausea/vomiting associated with pain. Reports a slight headache, 2/10. No other complaints. No reported trauma or recent illness.
[2023-11-25 01:33] VITALS: BP 114/70; PULSE 70; RESP 16; TEMP 36.8
== END 2023-11-25 01:40 | disposition home or self-care (01) ==
PROVIDERS: Physician Assistant; Emergency Provider Emergency Medicine; PCP Internal Medicine
DX: R10.32 Left lower quadrant pain (principal)
CPT/HCPCS: 36415; 74176; 80048; 81001; 85025; 99283; 99284

== ENCOUNTER 2023-11-30 11:28 | Outpatient (AMB) | payer OTHER, SELFPAY ==
[2023-11-30 11:29] VITALS: BP 132/72; PULSE 83; O2SAT 97; BMI 24.1
--- NOTE | 2023-11-30 11:29 | MHC.PC.OV ---
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 Required: No Accompanied by: Self / Same As Patient Allergies cefaclor [From Ceclor] Allergy (Unknown, Verified 11/30/23 11:31) Rash Pertussis Vaccines Allergy (Unknown, Verified 11/30/23 11:31) Hives chlorine Allergy (Unknown, Uncoded 11/30/23 11:31) hives Medication List - Last Reconciled 11/30/23 by Natalie Cortes PA-C acetaminophen 650 mg PO Q6H PRN adalimumab (Humira(CF) Pen) 40 mg (0.4 mL) subcut Q2W cholecalciferol (vitamin D3) 1,250 mcg PO QWEEK 90 days fluticasone propionate 50 mcg/actuation 1 spray intranasal DAILY hyoscyamine sulfate 0.125 mg PO QID PRN ibuprofen 400 mg PO Q6H PRN oxymetazoline 0.05% 2 sprays intranasal Q12H PRN Tobacco use date assessed: 09/03/23 Dental Screening Dental Screen Date: 09/03/23 HPI [facility] 11/24 Flank Pain HPI Details 37-year-old male with past medical history Crohn's disease and vitamin-D deficiency last seen by Dr. Smith august 2023 coming in for hospital follow up. In review of the notes, patient was seen in [facility] ED 11/25/2023 for left lower quadrant and flank pain. CT scan showed evidence of renal stone and inflammation in the left descending colon. Patient was given hyoscyamine and discharged home. Patient states he is still having pain in the left lower quadrant when taking a deep breath however the pain has greatly improved since his hospital visit. He has been taking the hyoscyamine which does help with the pain however only lasts a short time. He also mentions he has difficulty concentrating and would like to be evaluated for ADHD. [facility] Medical History Closed left femoral fracture Urinary retention Rheumatoid arthritis Asthma Crohn's disease Left hip pain Surgical History Hx of colonoscopy S/P arthrocentesis Family History Mother Family history of rheumatoid arthritis Rheumatoid arthritis Father CHF (congestive heart failure) Maternal Grandmother Crohn's colitis Social History Household Members: None Housing: Apartment Do you presently have visiting nurse or other home services: No Alcohol intake: current Alcohol intake frequency: holidays/special occasions only Patient Tobacco Use Status: Never used Tobacco Tobacco use type: Cigarette e-Cigarette/Vaping Use: Former Use Substance Use Type: Marijuana Advance Directives Date on File: 12/28/22 service: No Current occupational status: employed 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 1. Little interest or pleasure in doing things: not at all 2. Feeling down, depressed, or hopeless: not at all 3. Trouble falling or staying asleep, or sleeping too much: not at all 4. Feeling tired or having little energy: not at all 5. Poor appetite or overeating: not at all 6. Feeling bad about yourself - or that you are a failure or have let yourself or your family down: not at all 7. Trouble concentrating on things, such as reading the newspaper or watching television: not at all 8. Moving or speaking so slowly that other people could have noticed. Or the opposite - being so fidgety or restless that you have been moving around a lot more than usual: not at all 9. Thoughts that you would be better off or of hurting yourself in some way: not at all Total score: 0 Depression Screening Interpretation: Negative Depression Screening Done: Yes 31223 - PHQ-9 Billing: Yes Source: Developed by Drs. Rigo Palmer, Danika Palumbo, Kiran Mazariegos and colleagues, with an educational neno from [employer]. Thrive Questionnaire Date Thrive assessed: 09/03/23 AUDIT C Alcohol Use Questionnaire (AUDIT-C) 1. How often do you have a drink containing alcohol?: Never 3. How often do you have six or more drinks on one occasion?: Never Total Score: 0 Score Reviewed/Action Taken: Yes JANNA-7 AMB Questionnaire JANNA-7 Date JANNA - 7 assessed: 09/03/23 Source: Developed by Drs. Rigo Palmer, Danika Palumbo, Kiran Mazariegos and colleagues, with an educational neno from [employer]. Review of Systems Const Denies body aches, Denies chills, Denies fatigue, Denies fever(s) and Denies headache(s) Eyes Reports no additional complaints ENT Reports no additional complaints and Denies headache(s) Card Denies chest pain, Denies syncope, Denies lightheadedness and Denies dyspnea Resp Denies cough and Denies dyspnea GI Reports abdominal pain (Left lower quadrant), Denies melena, Denies hematochezia, Denies change in stool character, Denies constipation, Denies diarrhea, Reports nausea and Denies vomiting Reports no additional complaints Musc Reports no additional complaints Skin/Breast Reports system reviewed and no additional complaints, except as documented Neuro Denies syncope and Denies headache(s) Psych Details: Difficulty concentrating Endo Denies fatigue Physical exam (Primary Care) Vital Signs: Last Vital Signs Pulse 83 11/30/23 11:29 BP 132/72 11/30/23 11:29 Pulse Ox 97 11/30/23 11:29 Oxygen Delivery Method Room Air 11/30/23 11:29 BMI result Body Mass Index 24.1 Tobacco/Smoking Status: Tobacco use Status Tobacco use date assessed 09/03/23 11/30/23 11:29 Patient Tobacco Use Status Never used Tobacco 11/30/23 11:29 Tobacco use type Cigarette 11/30/23 11:34 e-Cigarette/Vaping Use Former Use 11/30/23 11:29 PHQ-9: PHQ-9 Score PHQ-9: Total score 0 11/30/23 11:34 Depression Screening Interpretation: Negative Thrive Assessment: Date of Thrive Assessment Date Thrive assessed 09/03/23 11/30/23 11:29 Const General: cooperative, healthy appearing, comfortable and no acute distress Orientation/consciousness: patient oriented x3 HENMT Head: Yes normocephalic Ears: hearing grossly normal bilaterally General nose exam: Normal external nose present Eyes General: appearance normal, both eyes and all related structures Conjunctivae: conjunctivae normal Neck Neck: Yes full ROM and Yes no lymphadenopathy Resp Effort & Inspection: normal respiratory effort Auscultation: clear to auscultation bilaterally, no crackles, no rales, no rhonchi and no wheezes Cardio Rate: regular rate Rhythm: regular rhythm GI Inspection: Yes normal to inspection Palpation (GI): Soft to palpation, not firm, nontender, no guarding, not rigid and no masses General: Yes no CVA tenderness Back/Spine/Pelvis Back: no CVA tenderness Skin General skin exam: no rashes or lesions noted Neuro General: patient oriented x3 Gait exam (Neuro): Normal gait present Extrem General: Yes normal to inspection, Yes full ROM and No edema Psych Affect: normal affect Attitude: cooperative Insight: Good insight present (Psych) Judgement: Good judgement present (Psych) Assessment and Plan Assessment & Plan (1) Difficulty concentrating: Code(s): R41.840 - Attention and concentration deficit Plan: Patient states he has been having difficulty cut screening for several years and has never been evaluated. He is interested in medications but would like a formal diagnosis. Referral to outpatient psychiatric clinic placed today. (2) Crohn's disease: Code(s): K50.90 - Crohn's disease, unspecified, without complications Qualifiers: Gastrointestinal tract location: unspecified location Digestive disease complication type: unspecified complication Qualified Code(s): K50.919 - Crohn's disease, unspecified, with unspecified complications Plan: Continue to follow up with GI and continue on Humira. (3) Left lower quadrant pain: Code(s): R10.32 - Left lower quadrant pain Plan: Patient was evaluated for left lower quadrant pain and left-sided flank pain while in the ER. Still having mild tenderness primarily with taking a deep breath. Has been using hyoscyamine with mild relief. We will trial dicyclomine instead of hyoscyamine to see if symptoms improve. Advised patient not to use them together. Reviewed with patient the red flag symptoms and when to present to the ER for re-evaluation. Follow up as needed for this concern. Plan This note was constructed using voice recognition software. While every effort has been made to ensure accuracy and special education professional, still areas may have been included sometimes these areas may affect the content or meeting of the given symptoms. Total time spent caring for the patient today was 30 minutes. This includes time spent before the visit reviewing the chart, time spent during the visit, and time spent after the visit and documentation. Orders: Referrals Psychiatry Outpatient Consultation Service R41.840 - Attention and concentration deficit Medications: New dicyclomine 10 mg PO BID 14 caps 0RF Coding Level of Care Code Est Pt Level 3 (74067) Diagnoses Difficulty concentrating R41.840 Crohn's disease with complication, unspecified gastrointestinal tract location K50.919 Gastrointestinal tract location: unspecified location Digestive disease complication type: unspecified complication Left lower quadrant pain R10.32
== END 2023-11-30 12:44 | disposition home or self-care (01) ==
PROVIDERS: PCP Internal Medicine
DX: R41.840 Attention and concentration deficit (principal); K50.919 Crohn's disease, unspecified, with unspecified complications; R10.32 Left lower quadrant pain
CPT/HCPCS: 99213

== ENCOUNTER 2024-01-11 12:54 | Outpatient (AMB) | payer OTHER, SELFPAY ==
--- NOTE | 2024-01-11 13:52 | A.OFFPSYCH_ITS ---
Intake Intake Visit Reasons: consultation Allergies cefaclor [From [facility]] Allergy (Unknown, Verified 11/30/23 11:31) Rash Pertussis Vaccines Allergy (Unknown, Verified 11/30/23 11:31) Hives chlorine Allergy (Unknown, Uncoded 11/30/23 11:31) hives Medication List - Last Reconciled 01/11/24 by Kera Small, SAMEER acetaminophen 650 mg PO Q6H PRN adalimumab (Humira(CF) Pen) 40 mg (0.4 mL) subcut Q2W cholecalciferol (vitamin D3) 1,250 mcg PO QWEEK 90 days dicyclomine 10 mg PO BID fluticasone propionate 50 mcg/actuation 1 spray intranasal DAILY hyoscyamine sulfate 0.125 mg PO QID PRN ibuprofen 400 mg PO Q6H PRN oxymetazoline 0.05% 2 sprays intranasal Q12H PRN HPI- Psychiatric Chief Complaint: consultation Assessment and Plan Assessment & Plan (1) Attention deficit hyperactivity disorder (ADHD), combined type: Status: Acute Code(s): F90.2 - Attention-deficit hyperactivity disorder, combined type Plan rule out Autism, high functioning. trial of wellbutrin XL 150mg qam return in 1 month Medications: New bupropion HCl XL (Wellbutrin XL) 150 mg PO QAM 30 tabs 1RF Counseling and coordination of Care Pt. Self Management counseling: Mod caffeine/ETOH intake, Sleep hygiene, Behavior activation, General coping skills and Problem solving Medication management counseling: Effectiveness, Side effects, Dosing range, Duration, Drug interaction and Adherence Diagnosis and Prognosis Counseling: Accuracy of diagnosis, Prognosis over time, Impact of diagnosis on life functions, Impact of family relationship, Problematic behaviors secondary to diagnosis and Adequacy of current interventions Details: I spent 75 minutes reviewing the record, seeing the patient and documenting in the medical record. Counseling provided to the patient/caregiver as outlined below. Addressed pa tient/caregiver concerns regarding current medication regime including effective adherence. Addressed patient/caregiver concerns regarding diagnosis and prognosis including accuracy of diagnosis, prognosis over time, impact of diagnosis. Addressed patient/caregiver concerns regarding impact of recent stressors. [facility] Medical History Closed left femoral fracture Urinary retention Rheumatoid arthritis Asthma Crohn's disease Left hip pain Surgical History Hx of colonoscopy S/P arthrocentesis Family History Mother Family history of rheumatoid arthritis Rheumatoid arthritis Father CHF (congestive heart failure) Maternal Grandmother Crohn's colitis Social History Household Members: None Housing: Apartment Do you presently have visiting nurse or other home services: No Alcohol intake: current Alcohol intake frequency: holidays/special occasions only Patient Tobacco Use Status: Never used Tobacco Tobacco use type: Cigarette e-Cigarette/Vaping Use: Former Use Substance Use Type: Marijuana Advance Directives Date on File: 12/28/22 service: No Current occupational status: employed 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
== END 2024-01-11 14:30 | disposition home or self-care (01) ==
LOC: HO.HOP 12:54
PROVIDERS: PCP Internal Medicine; Visit Provider Clinical Nurse Specialist Psychiatric/Mental Health
DX: F90.2 Attention-deficit hyperactivity disorder, combined type (principal)
CPT/HCPCS: 90792

== ENCOUNTER → 2024-01-11 12:54 | Outpatient (BNVA) | payer OTHER, SELFPAY | PROVIDERS: PCP Internal Medicine; Visit Provider Clinical Nurse Specialist Psychiatric/Mental Health | DX: F90.2 Attention-deficit hyperactivity disorder, combined type (principal) | CPT/HCPCS: 90792 ==

== ENCOUNTER 2024-02-08 11:10 | Outpatient (AMB) | payer OTHER, SELFPAY ==
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
== END 2024-02-08 11:51 | disposition home or self-care (01) ==
LOC: HO.HOP 11:10
PROVIDERS: PCP Internal Medicine; Visit Provider Clinical Nurse Specialist Psychiatric/Mental Health
DX: F90.2 Attention-deficit hyperactivity disorder, combined type (principal)
CPT/HCPCS: 99214

== ENCOUNTER → 2024-02-08 11:10 | Outpatient (BNVA) | payer OTHER, SELFPAY | PROVIDERS: PCP Internal Medicine; Visit Provider Clinical Nurse Specialist Psychiatric/Mental Health | DX: F90.2 Attention-deficit hyperactivity disorder, combined type (principal) | CPT/HCPCS: 99212 ==

== ENCOUNTER 2024-02-23 11:44 | Outpatient (AMB) | payer OTHER, SELFPAY ==
--- NOTE | 2024-02-23 11:46 | MHC.OFFVIS ---
Vital Signs 02/23/24 11:47 Height 5 ft 9 in Weight 165 lb 5.547 oz BMI 24.4 BP 125/83 Blood Pressure Location Lt brachial Position Sitting Pulse 100 Intake Visit Reasons: 6 month follow up Intake Note: Sky presents in the office as a 6 month follow up. CC: He states that he is here for a follow up - no GI concerns today. Registered Nurse Cardiac Required: No Allergies cefaclor [From Ceclor] Allergy (Unknown, Verified 02/23/24 11:49) Rash Pertussis Vaccines Allergy (Unknown, Verified 02/23/24 11:49) Hives chlorine Allergy (Unknown, Uncoded 02/23/24 11:49) hives HPI Comments Details: This is a 37 y.o M with PMH of Crohns who has been referred here to establish care. Pt was prevously in [facility] and moved to [place] in 2020 however has not been seen by a GI locally. IBD history: Type: Crohns Location: Small intestine Age/year of diagnosis: 2006; 19 y.o (was having bloody diarrhea, abd pain and fatigue) Previous medications: mesalamine oral ([id number]), Entocort intermittent courses, Started humira 2011 Current medications: Humira q2w (last dose 05/15/2023) Prev surgeries: None Recent endoscopy: Recalls [address] Victoriano Roblero ([facility]) EIM: None Fam hx: Grandmother - Crohns. Current sx: No abd pain. Has 1-2 BMs/day which are soft with occ runs mitra related to diet. No blood in stool. No night time sx. Some urgency. Does not smoke. Drinks infrequently. No NSAID use. 08/17/23 - Colonoscopy: Mucosa: Normal to cecum and terminal ileum. T.I was intubated 20 cm deep and appeared endoscopically normal. q10 cm cold forceps biopsies were taken from the colon and sent for histology for dysplasia screening. Protruding lesions: Medium internal hemorrhoids [without] stigmata of recent bleeding. Impression: 1. Normal colon and terminal ileum mucosa 2. Internal hemorrhoids Path: A. Colon, 70 cm, biopsy: Colonic mucosa within normal limits. B. Colon, 60 cm, biopsy: Colonic mucosa within normal limits. C. Colon, 50 cm, biopsy: Colonic mucosa within normal limits. D. Colon, 40 cm, biopsy: Focal pericryptal lymphohistiocytic inflammation; otherwise colonic mucosa within normal limits. E. Colon, 30 cm, biopsy: Colonic mucosa within normal limits. F. Colon, 20 cm, biopsy: Colonic mucosa within normal limits. G. Colon, 10 cm, biopsy: Colonic mucosa within normal limits. Comment: The focus of lymphohistiocytic inflammation in part D is likely secondary to crypt injury. Otherwise, no evidence of fully developed chronic injury is present. No dysplasia is seen. 08/25/23: No acute gastrointestinal complaints. He is still worried about ? toxicity from vitamin-D. A repeat level was ordered but patient has not had the chance to get this done yet. 02/23/24: Routine 6 month follow up. Cont on Humira. Due for labs which will be ordered today. [facility] Medical History Closed left femoral fracture Urinary retention Rheumatoid arthritis Asthma Crohn's disease Left hip pain Surgical History Hx of colonoscopy S/P arthrocentesis Family History Mother Family history of rheumatoid arthritis Rheumatoid arthritis Father CHF (congestive heart failure) Maternal Grandmother Crohn's colitis Social History Household Members: None Housing: Apartment Do you presently have visiting nurse or other home services: No Alcohol intake: current Alcohol intake frequency: holidays/special occasions only Patient Tobacco Use Status: Never used Tobacco Tobacco use type: Cigarette e-Cigarette/Vaping Use: Former Use Substance Use Type: Marijuana Advance Directives Date on File: 12/28/22 service: No Current occupational status: employed 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 Cognitive needs: Yes Hearing needs: No Vision needs: Yes (glasses) Review of Systems Const All systems reviewed & are unremarkable except as noted in HPI and below Physical Exam Vital Signs: Last Vital Signs Pulse 100 02/23/24 11:47 BP 125/83 02/23/24 11:47 BMI result Body Mass Index 24.4 No apparent distress Nonicteric Abdomen soft, nondistended Alert and oriented x3, normal gait Assessment & Plan Assessment & Plan (1) Crohn's disease: Code(s): K50.90 - Crohn's disease, unspecified, without complications Category: Medical Qualifiers: Digestive disease complication type: unspecified complication Gastrointestinal tract location: unspecified location Qualified Code(s): K50.919 - Crohn's disease, unspecified, with unspecified complications Plan - Disease and therapy: In deep remission. - continue Humira 40 mg s/c q2w - Check liver panel, CRP - Due for Humira drug and Ab level in June 2024 (reminder set) - Nutrition: check Iron folate and B12. - Immunization: Advised to stay up to date on age related vaccinations including Covid-19 and Influenza. Avoid live vaccines. - Bone Health: No predisposing factors for osteoporosis such as steroid use or fam hx. Check Vit D. - Cancer prevention: IBD dysplasia: Next colonoscopy due in 2025. Sun safety discussed, including use of protective clothing and SPF. Follow up in 6 months ? Orders: Orders Vitamin D 25-OH Total Today E55.9 - Vitamin D deficiency, unspecified, K50.919 - Crohn's disease, unspecified, with unspecified complications, R74.01 - Elevation of levels of liver transaminase levels Liver Panel Today E55.9 - Vitamin D deficiency, unspecified, K50.919 - Crohn's disease, unspecified, with unspecified complications, R74.01 - Elevation of levels of liver transaminase levels Vitamin B12 and Folate Today E55.9 - Vitamin D deficiency, unspecified, K50.919 - Crohn's disease, unspecified, with unspecified complications, R74.01 - Elevation of levels of liver transaminase levels C Reactive Protein Today E55.9 - Vitamin D deficiency, unspecified, K50.919 - Crohn's disease, unspecified, with unspecified complications, R74.01 - Elevation of levels of liver transaminase levels IRON PROFILE Today E55.9 - Vitamin D deficiency, unspecified, K50.919 - Crohn's disease, unspecified, with unspecified complications, R74.01 - Elevation of levels of liver transaminase levels Ferritin Today E55.9 - Vitamin D deficiency, unspecified, K50.919 - Crohn's disease, unspecified, with unspecified complications, R74.01 - Elevation of levels of liver transaminase levels Adalimumab+Ab 06/05/24 K50.919 - Crohn's disease, unspecified, with unspecified complications Coding Level of Care Code Est Pt Level 4 (43391) Complex EM visit Add On G2211 Diagnoses Crohn's disease with complication, unspecified gastrointestinal tract location K50.919 Digestive disease complication type: unspecified complication Gastrointestinal tract location: unspecified location
[2024-02-23 11:47] VITALS: BP 125/83; PULSE 100; BMI 24.4
== END 2024-02-23 12:46 | disposition home or self-care (01) ==
PROVIDERS: PCP Internal Medicine; Referring Provider Internal Medicine; Visit Provider Internal Medicine
DX: K50.919 Crohn's disease, unspecified, with unspecified complications (principal)
CPT/HCPCS: 99214; G2211

== ENCOUNTER → 2024-02-23 11:44 | Outpatient (BNVA) | payer OTHER, SELFPAY | PROVIDERS: PCP Internal Medicine; Visit Provider Internal Medicine | DX: K50.919 Crohn's disease, unspecified, with unspecified complications (principal) | CPT/HCPCS: 99212 ==

== ENCOUNTER 2024-02-26 10:49 | Outpatient (REF) | payer OTHER, SELFPAY ==
[2024-02-26 11:56] LABS: Albumin Level 4.6 g/dL (3.5-5.0); Aspartate Amino Transferase 50 U/L (5-37); Bilirubin Direct 0.1 mg/dL (0.0-0.5); Bilirubin Total 0.5 mg/dL (0.0-1.0); C Reactive Protein 0.16 mg/dL (< or = 0.50); Iron 84 mcg/dL (45-160); Percent Iron Saturation 33 % (15-50); Total Iron Binding Capacity 258 mcg/dL (228-428); Total Protein 7.5 g/dL (6.5-8.0); Unsaturated Iron Binding 174 ug/dL
[2024-02-26 12:07] LABS: Alanine Aminotransferase 97 U/L (0-40); Alkaline Phosphatase 61 U/L (39-117)
[2024-02-26 12:10] LABS: Ferritin 259 ng/mL (20-250); Vitamin D 25-OH Total 31.9 ng/mL (>30)
[2024-02-26 12:21] LABS: Vitamin B12 606 pg/mL (200-900)
== END 2024-02-26 10:50 | disposition home or self-care (01) ==
LOC: HO.LAB 10:49
PROVIDERS: PCP Internal Medicine; Visit Provider Internal Medicine
DX: E55.9 Vitamin D deficiency, unspecified (principal); R74.01 Elevation of levels of liver transaminase levels; K50.919 Crohn's disease, unspecified, with unspecified complications
CPT/HCPCS: 36415; 80076; 82306; 82607; 82728; 82746; 83540; 86140

== ENCOUNTER 2024-03-21 11:13 | Outpatient (AMB) | payer OTHER, SELFPAY ==
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
== END 2024-03-21 11:55 | disposition home or self-care (01) ==
LOC: HO.HOP 11:13
PROVIDERS: PCP Internal Medicine; Visit Provider Clinical Nurse Specialist Psychiatric/Mental Health
DX: F90.2 Attention-deficit hyperactivity disorder, combined type (principal)
CPT/HCPCS: 99214

== ENCOUNTER → 2024-03-21 11:13 | Outpatient (BNVA) | payer OTHER, SELFPAY | PROVIDERS: PCP Internal Medicine; Visit Provider Clinical Nurse Specialist Psychiatric/Mental Health | DX: F90.2 Attention-deficit hyperactivity disorder, combined type (principal) | CPT/HCPCS: 99212 ==

== ENCOUNTER 2024-03-23 11:30 | Outpatient (AMB) | payer OTHER, SELFPAY ==
[2024-03-23 11:37] VITALS: BP 116/80; PULSE 80; O2SAT 98; BMI 25.5
--- NOTE | 2024-03-23 11:37 | A.OFFPC_ITS ---
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 Equipment Repairer Required: No Accompanied by: Self / Same As Patient Allergies cefaclor [From Ceclor] Allergy (Unknown, Verified 03/23/24 11:42) Rash Pertussis Vaccines Allergy (Unknown, Verified 03/23/24 11:42) Hives chlorine Allergy (Unknown, Uncoded 03/23/24 11:42) hives Medication List - Last Reconciled 03/23/24 by YAYA Koroma acetaminophen 650 mg PO Q6H PRN adalimumab (Humira(CF) Pen) 40 mg (0.4 mL) subcut Q2W cholecalciferol (vitamin D3) 1,250 mcg PO QWEEK 90 days fluticasone propionate 50 mcg/actuation 1 spray intranasal DAILY ibuprofen 400 mg PO Q6H PRN oxymetazoline 0.05% 2 sprays intranasal Q12H PRN Tobacco use date assessed: 03/23/24 Dental Screening Dental Screen Date: 03/23/24 Did you have a dental visit in the last 12 months?: No Did you have a dental problem in the last 6 months where you did not have access to dental care?: No Was dental information given to patient?: No HPI Crohn's Disease HPI Details The patient a 38 year old male with significant past medical history or Crohn's disease, vitamin D deficiency, Asthma, and ADHD. He is presenting today for a follow. He reports that he is feeling good today and does not have any concerns. He denies sob, dizziness, chest pain, heart palpitation, stomach pain, or changes in his bowel movement. He reports that he was seen by psychiaty and was placed on Welbutrin 150 mg for one month, but he was not sure if it making a difference. In February, the Wellbutrin was increased to 300mg. He started to noticed that his anxiety was getting worse, so the medication was discontinued. He reports that psychiatry recommends that he sees cognitive behavioral therapy and then they could revisit medication options if that is still warranted. He is planning on making an appt after the new year. He also endorses exercise-induced asthma symptoms. He also reports that he does not have a rescue inhaler because his asthma is really not that bad. [facility] Medical History (Updated 03/23/24 @ 23:37 by Chip Smith MD) Closed left femoral fracture Urinary retention Rheumatoid arthritis Asthma Crohn's disease Left hip pain Surgical History Hx of colonoscopy S/P arthrocentesis Family History Mother Family history of rheumatoid arthritis Rheumatoid arthritis Father CHF (congestive heart failure) Maternal Grandmother Crohn's colitis Social History Household Members: None Housing: Apartment Do you presently have visiting nurse or other home services: No Alcohol intake: current Alcohol intake frequency: holidays/special occasions only Patient Tobacco Use Status: Never used Tobacco Tobacco use type: Cigarette e-Cigarette/Vaping Use: Former Use Substance Use Type: Marijuana Advance Directives Date on File: 12/28/22 service: No Current occupational status: employed Current occupation: [employer] Cognitive needs: Yes Hearing needs: No Vision needs: Yes (glasses) Questionnaire PHQ-9 Over the last 2 weeks, how often have you been bothered by any of the following problems? 1. Little interest or pleasure in doing things: not at all 2. Feeling down, depressed, or hopeless: not at all 3. Trouble falling or staying asleep, or sleeping too much: not at all 4. Feeling tired or having little energy: not at all 5. Poor appetite or overeating: not at all 6. Feeling bad about yourself - or that you are a failure or have let yourself or your family down: not at all 7. Trouble concentrating on things, such as reading the newspaper or watching television: not at all 8. Moving or speaking so slowly that other people could have noticed. Or the opposite - being so fidgety or restless that you have been moving around a lot more than usual: not at all 9. Thoughts that you would be better off or of hurting yourself in some way: not at all Total score: 0 Depression Screening Interpretation: Negative Depression Screening Done: Yes 03094 - PHQ-9 Billing: Yes Source: Developed by Drs. Rigo Palmer, Danika Palumbo, Kiran Mazariegos and colleagues, with an educational neno from [employer]. Thrive Questionnaire Date Thrive assessed: 03/23/24 I am a: Patient What is your living situation today?: I have a steady place to live Within the past 12 months, did the food you bought not last and you didn't have the money to get more?: Never true Within the past 12 months, did you worry whether your food would run out before you got money to buy more?: Never true Do you have trouble paying for medicines?: No Do you have trouble getting transportation to medical appointments?: No Do you have trouble paying your heating and electricity bill?: No Do you have trouble taking care of your child, family member or friend?: No Do you have trouble with day-to-day activities such as bathing, preparing meals, shopping, managing finances, etc.?: No Are you currently unemployed and looking for a job?: No Are you interested in more education?: No Please select the resources that you would like help with: None Currently or been in a relationship where the following occur: No concerns reported THRIVE Score: 0 AUDIT C Alcohol Use Questionnaire (AUDIT-C) 1. How often do you have a drink containing alcohol?: Never 3. How often do you have six or more drinks on one occasion?: Never Total Score: 0 Score Reviewed/Action Taken: Yes JANNA-7 AMB Questionnaire JANNA-7 Date JANNA - 7 assessed: 03/23/24 Feeling nervous, anxious, or on edge: 0 = Not at all Not being able to stop or control worryin = Not at all Worrying too much about different things: 0 = Not at all Trouble relaxin = Not at all Being so restless that it is hard to sit still: 0 = Not at all Becoming easily annoyed or irritable: 0 = Not at all Feeling afraid as if something awful might happen: 0 = Not at all Total JANNA-7 score (0-4 normal; 5-9 mild; 10-14 moderate; 15-21 severe): 0 Source: Developed by Danika Cm Kurt Kroenke and colleagues, with an educational neno from [employer]. JANNA-7 Assessment Billing JANNA-7 Assessment Tool: JANNA-7 Assessment [id number] Review of Systems Const Details: Const Denies chills, Denies fatigue, Denies fever(s), Denies headache(s) and Denies weakness ENT Denies dizziness and Denies headache(s) Card Denies chest pain, Denies lightheadedness, Denies other (Palpitations) Resp Denies cough,+ mild dyspnea when overexerts when exercising, Denies wheezing and Denies other ( shortness of breath) GI Denies abdominal pain, Denies melena, Denies hematochezia, Denies change in bowel habits, Denies dyspepsia and Denies nausea Denies hematuria and Denies dysuria Musc Denies abnormal gait, Denies myalgias, Denies arthralgias, Denies numbness and Denies tingling Skin/Breast Denies rash, Denies unusual bruising and Denies wounds Neuro Denies abnormal gait, Denies dizziness, Denies headache(s), Denies memory loss, Denies numbness, Denies Sensory deficit (Neuro), Denies tingling and Denies weakness Psych Denies anxiety, Denies depression, Denies memory loss Endo Denies cold intolerance, Denies fatigue, Denies heat intolerance, Denies polydipsia and Denies polyuria Aller/Immun Denies wheezing Physical exam (Primary Care) Vital Signs: Last Vital Signs Pulse 80 03/23/24 11:37 BP 116/80 03/23/24 11:37 Pulse Ox 98 03/23/24 11:37 Oxygen Delivery Method Room Air 03/23/24 11:37 BMI result Body Mass Index 25.5 Tobacco/Smoking Status: Tobacco use Status Tobacco use date assessed 03/23/24 03/23/24 11:41 Patient Tobacco Use Status Never used Tobacco 03/23/24 11:41 Tobacco use type Cigarette 03/23/24 11:41 e-Cigarette/Vaping Use Former Use 03/23/24 11:41 PHQ-9: PHQ-9 Score PHQ-9: Total score 0 03/23/24 11:41 Depression Screening Interpretation: Negative Thrive Assessment: Date of Thrive Assessment Date Thrive assessed 03/23/24 03/23/24 11:41 Currently or been in a relationship where the following occur: No concerns reported Const Other: General: no acute distress and well developed Nutritional Appearance: well nourished Orientation/consciousness: patient oriented x3 HENMT Head: Yes normocephalic and Yes atraumatic Eyes General: appearance normal, both eyes and all related structures Pupils: Equal, round and reactive pupils present EOM: EOMs intact bilaterally Resp Effort & Inspection: normal respiratory effort Auscultation: clear to auscultation bilaterally Cardio Rate: regular rate Rhythm: regular rhythm Heart sounds: S1 normal heart sound present, S2 normal heart sound present, no gallops, no murmurs and no rubs GI Palpation (GI): No Abdominal aortic bruit present, Soft to palpation, nontender, No hepatosplenomegaly present and No Rebound tenderness present Auscultation: normal bowel sounds General: Yes no CVA tenderness Back/Spine/Pelvis Back: no CVA tenderness Cervical Spine: cervical ROM normal and No Cervical spine tenderness Thoracic/Lumbar Spine: thoraco-lumbar ROM normal, No pain with thoraco-lumbar ROM, No thoracic spinal tenderness and No lumbar spinal tenderness Extrem General: Yes normal to inspection, No edema and No calf tenderness Skin General: warm and dry. Normal skin color. Normal skin turgor Lesions: no lesions Rashes: no rashes Trauma: no lacerations or abrasions Wounds: no wounds Nails: normal Neuro General: patient oriented x3, gait normal and no focal neuro deficit Cranial nerves: Yes Equal, round and reactive pupils present Cognition (Neuro): normal cognition Gait exam (Neuro): Normal gait present Sensory Exam: No Sensory deficit (Neuro) Psych Appearance: grossly normal Affect: normal affect Attitude: cooperative Thought process: Normal thought process present Coding Level of Care Code Est Pt Level 4 (78607) Diagnoses Crohn's disease with complication, unspecified gastrointestinal tract location K50.919 Digestive disease complication type: unspecified complication Gastrointestinal tract location: unspecified location Mild intermittent asthma without complication J45.20 Asthma severity: mild Asthma persistence: intermittent Asthma complication type: uncomplicated Vitamin D deficiency E55.9 Attention deficit hyperactivity disorder (ADHD), combined type F90.2 Additional Codes JANNA-7 Assessment Billing - JANNA-7 Assessment Tool: JANNA-7 Assessment 49839 ([id number]) PHQ-9 - 13824 - PHQ-9 Billing: Yes ([id number]) Assessment & Plan Assessment & Plan (1) Crohn's disease: Code(s): K50.90 - Crohn's disease, unspecified, without complications Category: Medical Qualifiers: Digestive disease complication type: unspecified complication Gastrointestinal tract location: unspecified location Qualified Code(s): K50.919 - Crohn's disease, unspecified, with unspecified complications Plan: Continue on Adalimumab Pen 40 mg s.c q2/weeks He was seen by Dr. Sarah Tavarez (GI) ON 02/23/24, per report, the patient is deep remission Follow with GI per schedule (2) Asthma: Code(s): J45.909 - Unspecified asthma, uncomplicated Category: Medical Qualifiers: Asthma severity: mild Asthma persistence: intermittent Asthma complication type: uncomplicated Qualified Code(s): J45.20 - Mild intermittent asthma, uncomplicated Plan: The patient states that he has mild sob when he overexerts himself exercising Albuterol inhaler ordered as needed, he was informed that he can take his inhaler prior to working out. (3) Vitamin D deficiency: Code(s): E55.9 - Vitamin D deficiency, unspecified Category: Medical Plan: vitamin D level on 02/26/24 31.9 continue cholecalciferol 1250 mcg po q week Will recheck labs in six month and advice (4) Attention deficit hyperactivity disorder (ADHD), combined type: Code(s): F90.2 - Attention-deficit hyperactivity disorder, combined type Category: Medical Plan: The seen psychiatry in January, he was started on Wellbutrin 150 mg. Per jessica cordero, he was not sure if the medication was making a difference. After reporting this is a psychiatry, the dose was increased to 300. At that patient is started having a worsening anxiety. The medication was discontinued and CBT was recommended. The patient plan to make an appointment with CBT after the new year. Follow-up with psychiatry as needed/scheduled. Plan Follow up in 6 months Orders: Orders Complete Blood Count Auto Diff 5 Months E55.9 - Vitamin D deficiency, unspecified, F90.2 - Attention-deficit hyperactivity disorder, combined type, K50.919 - Crohn's disease, unspecified, with unspecified complications, Z00.00 - Encounter for general adult medical examination without abnormal findings Comprehensive Mobile. Panel Fast 5 Months E55.9 - Vitamin D deficiency, unspecified, F90.2 - Attention-deficit hyperactivity disorder, combined type, K50.919 - Crohn's disease, unspecified, with unspecified complications, Z00.00 - Encounter for general adult medical examination without abnormal findings IRON PROFILE 5 Months E55.9 - Vitamin D deficiency, unspecified, F90.2 - Attention-deficit hyperactivity disorder, combined type, K50.919 - Crohn's disease, unspecified, with unspecified complications, Z00.00 - Encounter for general adult medical examination without abnormal findings Vitamin B12 and Folate 5 Months E55.9 - Vitamin D deficiency, unspecified, F90.2 - Attention-deficit hyperactivity disorder, combined type, K50.919 - Crohn's disease, unspecified, with unspecified complications, Z00.00 - Encounter for general adult medical examination without abnormal findings Glucose Fasting 5 Months E55.9 - Vitamin D deficiency, unspecified, F90.2 - Attention-deficit hyperactivity disorder, combined type, K50.919 - Crohn's disease, unspecified, with unspecified complications, Z00.00 - Encounter for general adult medical examination without abnormal findings TSH reflex Free T4 5 Months E55.9 - Vitamin D deficiency, unspecified, F90.2 - Attention-deficit hyperactivity disorder, combined type, K50.919 - Crohn's disease, unspecified, with unspecified complications, Z00.00 - Encounter for general adult medical examination without abnormal findings Lipid Panel 5 Months E55.9 - Vitamin D deficiency, unspecified, F90.2 - Attention-deficit hyperactivity disorder, combined type, K50.919 - Crohn's disease, unspecified, with unspecified complications, Z00.00 - Encounter for general adult medical examination without abnormal findings Vitamin D 25-OH Total 5 Months E55.9 - Vitamin D deficiency, unspecified, F90.2 - Attention-deficit hyperactivity disorder, combined type, K50.919 - Crohn's disease, unspecified, with unspecified complications, Z00.00 - Encounter for general adult medical examination without abnormal findings Medications: New albuterol sulfate 90 mcg/actuation 2 puffs inhalation Q6H PRN 8.5 grams 0RF shortness of breath or wheezing
== END 2024-03-23 12:20 | disposition home or self-care (01) ==
PROVIDERS: PCP Internal Medicine
DX: K50.919 Crohn's disease, unspecified, with unspecified complications (principal); J45.20 Mild intermittent asthma, uncomplicated; E55.9 Vitamin D deficiency, unspecified; F90.2 Attention-deficit hyperactivity disorder, combined type

== ENCOUNTER → 2024-03-23 11:30 | Outpatient (BNVA) | payer OTHER, SELFPAY | PROVIDERS: PCP Internal Medicine | DX: K50.90 Crohn's disease, unspecified, without complications (principal); E55.9 Vitamin D deficiency, unspecified; J45.909 Unspecified asthma, uncomplicated; J45.20 Mild intermittent asthma, uncomplicated; F90.2 Attention-deficit hyperactivity disorder, combined type | CPT/HCPCS: 96127; 99212 ==

== ENCOUNTER 2024-04-18 11:06 | Outpatient (AMB) | payer OTHER, SELFPAY ==
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
== END 2024-04-18 11:34 | disposition home or self-care (01) ==
LOC: HO.HOP 11:06
PROVIDERS: PCP Internal Medicine; Visit Provider Clinical Nurse Specialist Psychiatric/Mental Health
DX: F41.1 Generalized anxiety disorder (principal); F90.2 Attention-deficit hyperactivity disorder, combined type
CPT/HCPCS: 99214

== ENCOUNTER → 2024-04-18 11:06 | Outpatient (BNVA) | payer OTHER, SELFPAY | PROVIDERS: PCP Internal Medicine; Visit Provider Clinical Nurse Specialist Psychiatric/Mental Health | DX: F41.1 Generalized anxiety disorder (principal); F90.2 Attention-deficit hyperactivity disorder, combined type | CPT/HCPCS: 99212 ==

== ENCOUNTER 2024-05-18 10:08 | Outpatient (AMB) | payer OTHER, SELFPAY ==
[2024-05-18 10:09] VITALS: BP 110/76; PULSE 65; O2SAT 98; BMI 25.0
--- NOTE | 2024-05-18 10:09 | MHC.PC.OV ---
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 Accompanied by: Self / Same As Patient Allergies cefaclor [From Ceclor] Allergy (Unknown, Verified 05/18/24 10:28) Rash Pertussis Vaccines Allergy (Unknown, Verified 05/18/24 10:28) Hives chlorine Allergy (Unknown, Uncoded 05/18/24 10:28) hives Medication List - Last Reconciled 05/18/24 by Chip Smith MD acetaminophen 650 mg PO Q6H PRN adalimumab (Humira(CF) Pen) 40 mg (0.4 mL) subcut Q2W albuterol sulfate 90 mcg/actuation 2 puffs inhalation Q6H PRN bupropion HCl XL (Wellbutrin XL) 150 mg PO QAM cholecalciferol (vitamin D3) 1,250 mcg PO QWEEK 90 days escitalopram oxalate (Lexapro) 2.5 mg (1/2 x 5 mg) PO DAILY fluticasone propionate 50 mcg/actuation 1 spray intranasal DAILY ibuprofen 400 mg PO Q6H PRN oxymetazoline 0.05% 2 sprays intranasal Q12H PRN Tobacco use date assessed: 05/18/24 Dental Screening Dental Screen Date: 05/18/24 Did you have a dental visit in the last 12 months?: No Did you have a dental problem in the last 6 months where you did not have access to dental care?: No Was dental information given to patient?: No HPI Tooth Infection HPI Details Patient comes in today for evaluation of a possible tooth/gum infection and need for Abx Tx States that he missed his Humira injection for about 4 days now because of the possible oral infection and is concerned that the longer he does not go back on his Humira, the more likely he will end up with a flare up of his Crohn's disease He is planning to call up his dentist to schedule an appointment but wanted to se eif he can get started on some Abx first States that he has been experiencing some pain and swelling over a couple of his upper front and left teeth for a few days now and feels that the gum under these teeth is also somewhat swollen He denies any fever, headaches or dizziness Denies any chest pains, no SOB No nausea/vomiting, no abdominal pain No change in bowel habits noted [facility] Medical History Allergic rhinitis Closed left femoral fracture Urinary retention Rheumatoid arthritis Asthma Crohn's disease Left hip pain Surgical History Hx of colonoscopy S/P arthrocentesis Family History Mother Family history of rheumatoid arthritis Rheumatoid arthritis Father CHF (congestive heart failure) Maternal Grandmother Crohn's colitis Social History Household Members: None Housing: Apartment Do you presently have visiting nurse or other home services: No Alcohol intake: current Alcohol intake frequency: holidays/special occasions only Patient Tobacco Use Status: Never used Tobacco Tobacco use type: Cigarette e-Cigarette/Vaping Use: Former Use Substance Use Type: Marijuana Advance Directives Date on File: 12/28/22 service: No Current occupational status: employed Current occupation: [employer] Cognitive needs: Yes Hearing needs: No Vision needs: Yes (glasses) Questionnaire PHQ-9 Over the last 2 weeks, how often have you been bothered by any of the following problems? 1. Little interest or pleasure in doing things: not at all 2. Feeling down, depressed, or hopeless: not at all 3. Trouble falling or staying asleep, or sleeping too much: not at all 4. Feeling tired or having little energy: not at all 5. Poor appetite or overeating: not at all 6. Feeling bad about yourself - or that you are a failure or have let yourself or your family down: not at all 7. Trouble concentrating on things, such as reading the newspaper or watching television: not at all 8. Moving or speaking so slowly that other people could have noticed. Or the opposite - being so fidgety or restless that you have been moving around a lot more than usual: not at all 9. Thoughts that you would be better off or of hurting yourself in some way: not at all Total score: 0 Depression Screening Interpretation: Negative Depression Screening Done: Yes 18545 - PHQ-9 Billing: Yes Source: Developed by Drs. Rigo Palmer, Danika Palumbo, Kiran Mazariegos and colleagues, with an educational neno from [employer] Thrive Questionnaire Date Thrive assessed: 05/18/24 I am a: Patient What is your living situation today?: I have a steady place to live Within the past 12 months, did the food you bought not last and you didn't have the money to get more?: Never true Within the past 12 months, did you worry whether your food would run out before you got money to buy more?: Never true Do you have trouble paying for medicines?: No Do you have trouble getting transportation to medical appointments?: No Do you have trouble paying your heating and electricity bill?: No Do you have trouble taking care of your child, family member or friend?: No Do you have trouble with day-to-day activities such as bathing, preparing meals, shopping, managing finances, etc.?: No Are you currently unemployed and looking for a job?: No Are you interested in more education?: No Please select the resources that you would like help with: None Currently or been in a relationship where the following occur: No concerns reported THRIVE Score: 0 AUDIT C Alcohol Use Questionnaire (AUDIT-C) 1. How often do you have a drink containing alcohol?: Never 3. How often do you have six or more drinks on one occasion?: Never Total Score: 0 Score Reviewed/Action Taken: Yes JANNA-7 AMB Questionnaire JANNA-7 Date JANNA - 7 assessed: 05/18/24 Feeling nervous, anxious, or on edge: 0 = Not at all Not being able to stop or control worryin = Not at all Worrying too much about different things: 0 = Not at all Trouble relaxin = Not at all Being so restless that it is hard to sit still: 0 = Not at all Becoming easily annoyed or irritable: 0 = Not at all Feeling afraid as if something awful might happen: 0 = Not at all Total JANNA-7 score (0-4 normal; 5-9 mild; 10-14 moderate; 15-21 severe): 0 Source: Developed by Drs. Rigo Palmer, Danika Palumbo, Kiran Mazariegos and colleagues, with an educational neno from [employer] JANNA-7 Assessment Billing JANNA-7 Assessment Tool: JANNA-7 Assessment 57966 Review of Systems Const Denies chills, Denies fatigue, Denies fever(s) and Denies headache(s) ENT Reports dental pain (see HPI), Denies dysphagia, Denies dizziness, Denies otalgia, Denies headache(s), Denies neck pain, Denies odynophagia and Denies sore throat Card Denies chest pain, Denies irregular heart rhythm and Denies dyspnea Resp Denies chest congestion, Denies cough and Denies dyspnea GI Denies abdominal pain, Denies constipation, Denies dysphagia, Denies diarrhea, Denies nausea, Denies odynophagia and Denies vomiting Denies nocturia and Denies urinary frequency Musc Denies back pain, Denies arthralgias and Denies neck pain Skin/Breast Denies rash Neuro Denies dizziness and Denies headache(s) Endo Denies fatigue Physical exam (Primary Care) Vital Signs: Last Vital Signs Pulse 65 05/18/24 10:09 BP 110/76 05/18/24 10:09 Pulse Ox 98 05/18/24 10:09 Oxygen Delivery Method Room Air 05/18/24 10:09 BMI result Body Mass Index 25.0 Tobacco/Smoking Status: Tobacco use Status Tobacco use date assessed 05/18/24 05/18/24 10:21 Patient Tobacco Use Status Never used Tobacco 05/18/24 10:21 Tobacco use type Cigarette 05/18/24 10:21 e-Cigarette/Vaping Use Former Use 05/18/24 10:21 PHQ-9: PHQ-9 Score PHQ-9: Total score 0 05/18/24 10:21 Depression Screening Interpretation: Negative Thrive Assessment: Date of Thrive Assessment Date Thrive assessed 05/18/24 05/18/24 10:21 Currently or been in a relationship where the following occur: No concerns reported Const General: no acute distress and alert HENMT Other: (+) erythema with mild tenderness and swelling over the front and left upper gum involving the 2 left upper incisors and left canine and premolars Throat: Yes posterior oropharynx normal and Yes tonsils normal Neck Neck: Yes supple and No lymphadenopathy Thyroid: Thyroid normal Resp Auscultation: clear to auscultation bilaterally, no rales and no wheezes Cardio Rate: regular rate Rhythm: regular rhythm Heart sounds: no murmurs GI Palpation (GI): Soft to palpation and nontender Auscultation: normal bowel sounds General: Yes no CVA tenderness Back/Spine/Pelvis Back: no CVA tenderness Skin Rashes: no rashes Extrem General: Yes no clubbing, cyanosis or edema Coding Level of Care Code Est Pt Level 3 (45786) Diagnoses Dental infection K04.7 Crohn's disease with complication, unspecified gastrointestinal tract location K50.919 Gastrointestinal tract location: unspecified location Digestive disease complication type: unspecified complication Vitamin D deficiency E55.9 Mild intermittent asthma without complication J45.20 Asthma severity: mild Asthma persistence: intermittent Asthma complication type: uncomplicated Allergic rhinitis, unspecified seasonality, unspecified trigger J30.9 Allergic rhinitis trigger: unspecified Allergic rhinitis seasonality: unspecified JANNA (generalized anxiety disorder) F41.1 Attention deficit hyperactivity disorder (ADHD), combined type F90.2 Additional Codes JANNA-7 Assessment Billing - JANNA-7 Assessment Tool: JANNA-7 Assessment [id number] ([id number]) PHQ-9 - 15684 - PHQ-9 Billing: Yes ([id number]) Assessment & Plan Assessment & Plan (1) Dental infection: Code(s): K04.7 - Periapical abscess without sinus Category: Medical Plan: Will go ahead and start him on Clindamycin 150 mg Q 6 hours x 7 days Patient is advised to try to contact his dentist to schedule an appointment with them JANEL to have his teeth evaluated and any necessary dental procedures done as the antibiotic Tx will help clear up the acute infection but will not permanently resolve his aproblem (2) Crohn's disease: Code(s): K50.90 - Crohn's disease, unspecified, without complications Category: Medical Qualifiers: Gastrointestinal tract location: unspecified location Digestive disease complication type: unspecified complication Qualified Code(s): K50.919 - Crohn's disease, unspecified, with unspecified complications Plan: He has been doing well and his Crohn's disease has been in remission on Humira for a while now but he has not been able to get his Humira injection for 4 days now due to his current dental issues and he is concerned about his Crohn's flaring up again Have advised him that he can likely go back on his Humira injections in a few days once he starts taking his prescribed Abx He will be due for repeat colonoscopy in 2025 Follow up with GI as scheduled (3) Vitamin D deficiency: Code(s): E55.9 - Vitamin D deficiency, unspecified Category: Medical Plan: Continue Vitamin D3 1250 mcg once a week (4) Asthma: Code(s): J45.909 - Unspecified asthma, uncomplicated Category: Medical Qualifiers: Asthma severity: mild Asthma persistence: intermittent Asthma complication type: uncomplicated Qualified Code(s): J45.20 - Mild intermittent asthma, uncomplicated Plan: Controlled Continue Albuteerol HFA 2 inhalations Q 6 hours PRN (5) Allergic rhinitis: Code(s): J30.9 - Allergic rhinitis, unspecified Category: Medical Qualifiers: Allergic rhinitis trigger: unspecified Allergic rhinitis seasonality: unspecified Qualified Code(s): J30.9 - Allergic rhinitis, unspecified Plan: Continue Fluticasone 50 mcg nasal spray QD PRN (6) JANNA (generalized anxiety disorder): Code(s): F41.1 - Generalized anxiety disorder Category: Medical Plan: Continue Bupropion XL 150 mg Q AM and Escitalopram 2.5 mg QD Follow up with psychiatry (Macy Small) as scheduled (7) Attention deficit hyperactivity disorder (ADHD), combined type: Code(s): F90.2 - Attention-deficit hyperactivity disorder, combined type Category: Medical Plan: Psychiatry is supposedly considering low-dose Adderall vs. low-dose SSRI or SNRI to help manage his symptoms Will defer treatment and management of this appropriately to psychiatry Plan To return as scheduled in September 2024 for his annual physical examination Medications: New clindamycin HCl 150 mg PO Q6H 7 days 28 caps 0RF
== END 2024-05-18 10:43 | disposition home or self-care (01) ==
PROVIDERS: PCP Internal Medicine; Visit Provider Internal Medicine
DX: K04.7 Periapical abscess without sinus (principal); K50.919 Crohn's disease, unspecified, with unspecified complications; E55.9 Vitamin D deficiency, unspecified; J45.20 Mild intermittent asthma, uncomplicated; J30.9 Allergic rhinitis, unspecified; F41.1 Generalized anxiety disorder; F90.2 Attention-deficit hyperactivity disorder, combined type

== ENCOUNTER → 2024-05-18 10:08 | Outpatient (BNVA) | payer OTHER, SELFPAY | PROVIDERS: PCP Internal Medicine; Visit Provider Internal Medicine | DX: K04.7 Periapical abscess without sinus (principal); K50.919 Crohn's disease, unspecified, with unspecified complications; E55.9 Vitamin D deficiency, unspecified; J45.20 Mild intermittent asthma, uncomplicated; J30.9 Allergic rhinitis, unspecified; F41.1 Generalized anxiety disorder; F90.2 Attention-deficit hyperactivity disorder, combined type | CPT/HCPCS: 96127; 99212 ==

== ENCOUNTER 2024-06-13 11:07 | Outpatient (REF) | payer OTHER, SELFPAY ==
[2024-06-18 08:29] LABS: Anti-Adalimumab Antibody <10 AU (<10)
== END 2024-06-13 11:08 | disposition home or self-care (01) ==
LOC: HO.LAB 11:07
PROVIDERS: PCP Internal Medicine; Visit Provider Internal Medicine
DX: F41.1 Generalized anxiety disorder (principal); K50.919 Crohn's disease, unspecified, with unspecified complications; F90.2 Attention-deficit hyperactivity disorder, combined type
CPT/HCPCS: 36415; 80145; 83520; 99212

== ENCOUNTER 2024-06-13 11:07 | Outpatient (AMB) | payer OTHER, SELFPAY ==
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
== END 2024-06-13 11:31 | disposition home or self-care (01) ==
LOC: HO.HOP 11:07
PROVIDERS: PCP Internal Medicine; Visit Provider Clinical Nurse Specialist Psychiatric/Mental Health
DX: F41.1 Generalized anxiety disorder (principal); F90.2 Attention-deficit hyperactivity disorder, combined type
CPT/HCPCS: 99214

== ENCOUNTER 2024-07-25 10:57 | Outpatient (AMB) | payer OTHER, SELFPAY ==
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
== END 2024-07-25 11:19 | disposition home or self-care (01) ==
LOC: HO.HOP 10:57
PROVIDERS: PCP Internal Medicine; Visit Provider Clinical Nurse Specialist Psychiatric/Mental Health
DX: F41.1 Generalized anxiety disorder (principal)
CPT/HCPCS: 99214

== ENCOUNTER → 2024-07-25 10:57 | Outpatient (BNVA) | payer OTHER, SELFPAY | PROVIDERS: PCP Internal Medicine; Visit Provider Clinical Nurse Specialist Psychiatric/Mental Health | DX: F41.1 Generalized anxiety disorder (principal) | CPT/HCPCS: 99212 ==

== ENCOUNTER 2024-08-30 09:29 | Outpatient (AMB) | payer OTHER, SELFPAY ==
[2024-08-30 09:37] VITALS: BP 108/75; PULSE 81; BMI 23.8
--- NOTE | 2024-08-30 09:37 | MHC.OFFVIS ---
Vital Signs 08/30/24 09:37 Height 5 ft 9 in Weight 160 lb 14.999 oz BMI 23.8 BP 108/75 Blood Pressure Location Lt brachial Position Sitting Pulse 81 Intake Visit Reasons: 6 months f/u Chron's Intake Note: Sky presents in the office as a 6 month follow up crohns. CC: States that he is feeling okay - nothing with insurance that he is switching his medications. [employer] Required: No Allergies cefaclor [From Ceclor] Allergy (Unknown, Verified 08/30/24 09:38) Rash Pertussis Vaccines Allergy (Unknown, Verified 08/30/24 09:38) Hives chlorine Allergy (Unknown, Uncoded 08/30/24 09:38) hives HPI Comments Details: This is a 37 y.o M with PMH of Crohns who has been referred here to establish care. Pt was prevously in [facility] and moved to [place] in 2020 however has not been seen by a GI locally. IBD history: Type: Crohns Location: Small intestine Age/year of diagnosis: 2006; 19 y.o (was having bloody diarrhea, abd pain and fatigue) Previous medications: mesalamine oral ([id number]), Entocort intermittent courses, Started humira 2011 Current medications: Humira q2w (last dose 05/15/2023) Prev surgeries: None Recent endoscopy: Recalls [address] Victoriano Roblero ([facility]) EIM: None Fam hx: Grandmother - Crohns. Current sx: No abd pain. Has 1-2 BMs/day which are soft with occ runs mitra related to diet. No blood in stool. No night time sx. Some urgency. Does not smoke. Drinks infrequently. No NSAID use. 08/17/23 - Colonoscopy: Mucosa: Normal to cecum and terminal ileum. T.I was intubated 20 cm deep and appeared endoscopically normal. q10 cm cold forceps biopsies were taken from the colon and sent for histology for dysplasia screening. Protruding lesions: Medium internal hemorrhoids [without] stigmata of recent bleeding. Impression: 1. Normal colon and terminal ileum mucosa 2. Internal hemorrhoids Path: A. Colon, 70 cm, biopsy: Colonic mucosa within normal limits. B. Colon, 60 cm, biopsy: Colonic mucosa within normal limits. C. Colon, 50 cm, biopsy: Colonic mucosa within normal limits. D. Colon, 40 cm, biopsy: Focal pericryptal lymphohistiocytic inflammation; otherwise colonic mucosa within normal limits. E. Colon, 30 cm, biopsy: Colonic mucosa within normal limits. F. Colon, 20 cm, biopsy: Colonic mucosa within normal limits. G. Colon, 10 cm, biopsy: Colonic mucosa within normal limits. Comment: The focus of lymphohistiocytic inflammation in part D is likely secondary to crypt injury. Otherwise, no evidence of fully developed chronic injury is present. No dysplasia is seen. 08/25/23: No acute gastrointestinal complaints. He is still worried about ? toxicity from vitamin-D. A repeat level was ordered but patient has not had the chance to get this done yet. 02/23/24: Routine 6 month follow up. Cont on Humira. Due for labs which will be ordered today. 08/30/24: Seen as shceduled follow up. Reports feeling well. No abd pain, N,V,D. Some certain foods trigger abd discomfort such as bananas, dairy. Continues humira q2w. Typically takes it on a wednesday. Reports got a letter from insurance that he MAY need to switch humira to something different but so far has not received any follow up letter to that. No such notification received on our end. Laboratory Tests 06/13/24 12:05 Adalimumab Level 18.0 Anti-Adalimumab Ab <10 PFSH Medical History Attention deficit hyperactivity disorder (ADHD), combined type Allergic rhinitis Closed left femoral fracture Urinary retention Rheumatoid arthritis Asthma Crohn's disease Left hip pain Surgical History Hx of colonoscopy S/P arthrocentesis Family History Mother Family history of rheumatoid arthritis Rheumatoid arthritis Father CHF (congestive heart failure) Maternal Grandmother Crohn's colitis Social History Household Members: None Housing: Apartment Do you presently have visiting nurse or other home services: No Alcohol intake: current Alcohol intake frequency: holidays/special occasions only Patient Tobacco Use Status: Never used Tobacco Tobacco use type: Cigarette e-Cigarette/Vaping Use: Former Use Substance Use Type: Marijuana Advance Directives Date on File: 12/28/22 service: No Current occupational status: employed 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 Cognitive needs: Yes Hearing needs: No Vision needs: Yes (glasses) Review of Systems Const All systems reviewed & are unremarkable except as noted in HPI and below Physical Exam Vital Signs: Last Vital Signs Pulse 81 08/30/24 09:37 BP 108/75 08/30/24 09:37 BMI result Body Mass Index 23.8 No apparent distress Nonicteric Abdomen soft, nondistended Alert and oriented x3, uses cane to ambulate Assessment & Plan Assessment & Plan (1) Crohn's disease: Code(s): K50.90 - Crohn's disease, unspecified, without complications Category: Medical Qualifiers: Gastrointestinal tract location: unspecified location Digestive disease complication type: unspecified complication Qualified Code(s): K50.919 - Crohn's disease, unspecified, with unspecified complications Plan - Disease and therapy: In deep remission. Excellent humira levels in June 2024. - continue Humira 40 mg s/c q2w - Check CBC, CMP, fecal calpro - Nutrition: check Iron folate and B12. - Immunization: Advised to stay up to date on age related vaccinations including Covid-19 and Influenza. Avoid live vaccines. - Bone Health: No predisposing factors for osteoporosis such as steroid use or fam hx. Check Vit D. - Cancer prevention: IBD dysplasia: Next colonoscopy due in 2025. Follow up in 6 months ? Orders: Orders Complete Blood Count no Diff Today K50.919 - Crohn's disease, unspecified, with unspecified complications Comprehensive Met. Panel Today K50.919 - Crohn's disease, unspecified, with unspecified complications Vitamin D 25-OH Total Today K50.919 - Crohn's disease, unspecified, with unspecified complications IRON PROFILE Today K50.919 - Crohn's disease, unspecified, with unspecified complications Ferritin Today K50.919 - Crohn's disease, unspecified, with unspecified complications Calprotectin, Fecal Today K50.919 - Crohn's disease, unspecified, with unspecified complications Vitamin B12 and Folate Today K50.919 - Crohn's disease, unspecified, with unspecified complications Coding Level of Care Code Est Pt Level 4 (48832) Complex EM visit Add On G2211 Diagnoses Crohn's disease with complication, unspecified gastrointestinal tract location K50.919 Gastrointestinal tract location: unspecified location Digestive disease complication type: unspecified complication
== END 2024-08-30 10:05 | disposition home or self-care (01) ==
LOC: HO.HGI 09:30
PROVIDERS: PCP Internal Medicine; Visit Provider Internal Medicine
DX: K50.919 Crohn's disease, unspecified, with unspecified complications (principal)
CPT/HCPCS: 99214; G2211

== ENCOUNTER 2024-08-30 09:29 | Outpatient (REF) | payer OTHER, SELFPAY ==
[2024-08-30 10:46] LABS: MANUAL DIFF FLAG NO
[2024-08-30 11:52] LABS: Basophils Absolute Auto 0.1 X10*3/uL (0.0-0.2); Basophils Percent Auto 1.2 % (0-2); Eosinophils Percent Auto 0.5 % (0-4); Hematocrit 42.6 % (42.0-52.0); Hemoglobin 14.6 g/dl (14.0-18.0); Imm Gran Abs Auto 0.01 X10*3/uL (0.00-0.03); Imm Gran Pct Auto 0.2 % (0.0-0.4); Lymphocytes Absolute Auto 2.1 X10*3/uL (1.2-4.9); Lymphocytes Percent Auto 36.4 % (20-40); Mean Corpuscular HGB Conc 34.3 g/dl (31.0-36.0); Mean Corpuscular Hemoglobin 31.2 pg (27.0-33.0); Mean Platelet Volume 10.1 fL (9.4-12.4); Monocytes Absolute Auto 0.5 X10*3/uL (0.1-1.2); Monocytes Percent Auto 7.7 % (2-11); Neutrophils Absolute Auto 3.2 x10*3/uL (2.0-8.3); Platelet Count 265 X10*3/uL (160-400); Red Blood Count 4.68 X10*6/uL (4.60-5.80); Red Cell Distribution Width 13.2 % (11.0-16.0); White Blood Count 5.9 X10*3/uL (4.8-10.8)
[2024-08-30 13:07] LABS: Ferritin 188 ng/mL (20-250)
[2024-08-30 13:11] LABS: Alanine Aminotransferase 99 U/L (0-40); Albumin Level 4.6 g/dL (3.5-5.0); Alkaline Phosphatase 66 U/L (39-117); Anion Gap 10 (12-20); Aspartate Amino Transferase 48 U/L (5-37); Bilirubin Total 0.3 mg/dL (0.0-1.0); Blood Urea Nitrogen 12 mg/dL (9-16); Calcium 9.4 mg/dL (8.4-10.2); Carbon Dioxide 27 mmol/L (22-29); Chloride 108 mmol/L (96-108); Cholesterol 200 mg/dL (<200); Estimated Glomerular Filt Rate > 60; Glucose Fasting 85 mg/dL (60-99); HDL Cholesterol 31 mg/dL (>40); Iron 104 mcg/dL (45-160); LDL Cholesterol Calculated 104 mg/dL (<100); Percent Iron Saturation 43 % (15-50); Potassium 4.2 mmol/L (3.3-5.1); Sodium 141 mmol/L (135-145); Total Iron Binding Capacity 241 mcg/dL (228-428); Total Protein 7.3 g/dL (6.5-8.0); Triglycerides 327 mg/dL (<150); Unsaturated Iron Binding 137 ug/dL
[2024-08-30 13:20] LABS: TSH reflex Free T4 1.38 uIU/mL (0.32-4.0); Vitamin D 25-OH Total 26.9 ng/mL (>30)
[2024-08-30 13:29] LABS: Folate 5.4 ng/mL (> or = 4.0); Vitamin B12 485 pg/mL (200-900)
== END 2024-08-30 09:30 | disposition home or self-care (01) ==
LOC: HO.LAB 09:29
PROVIDERS: PCP Internal Medicine; Visit Provider Internal Medicine
DX: Z00.00 Encounter for general adult medical examination without abnormal findings (principal); K50.919 Crohn's disease, unspecified, with unspecified complications; E55.9 Vitamin D deficiency, unspecified; F90.2 Attention-deficit hyperactivity disorder, combined type
CPT/HCPCS: 36415; 80053; 80061; 82306; 82607; 82728; 82746; 83540; 84443; 85025; 99212

== ENCOUNTER 2024-09-26 10:11 | Outpatient (AMB) | payer OTHER, SELFPAY ==
--- NOTE | 2024-09-26 10:18 | A.OFFPC_ITS ---
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: No Accompanied by: Self / Same As Patient Allergies cefaclor (From Ceclor) Allergy (Unknown, Verified 09/26/24 10:32) Rash Pertussis Vaccines Allergy (Unknown, Verified 09/26/24 10:32) Hives chlorine Allergy (Unknown, Uncoded 09/26/24 10:32) hives Medication List - Last Reconciled 09/26/24 by Celestino Ricketts PA-C acetaminophen 650 mg PO Q6H PRN adalimumab (Humira(CF) Pen) 40 mg (0.4 mL) subcut Q2W albuterol sulfate 90 mcg/actuation 2 puffs inhalation Q6H PRN atorvastatin 20 mg PO BEDTIME cholecalciferol (vitamin D3) 1,250 mcg PO QWEEK 90 days diphenhydramine HCl (Benadryl Allergy) 25 mg PO BEDTIME PRN escitalopram oxalate (Lexapro) 5 mg PO DAILY 90 days fluticasone propionate 50 mcg/actuation 1 spray intranasal DAILY ibuprofen 400 mg PO Q6H PRN oxymetazoline 0.05% 2 sprays intranasal Q12H PRN Tobacco use date assessed: 05/18/24 Dental Screening Dental Screen Date: 05/18/24 HPI pe HPI Details Patient is a 38 year male here today for an annual physical. This is the 1st time I am meeting this 38-year-old male with a past medical history significant for Crohn's colitis, vitamin-D deficiency, generalized anxiety disorder and asthma. .. 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 His inflammatory bowel disease has been stable. Most recent liver enzymes have improved. .. Anxiety: Patient continues on Lexapro 5 mg with decent affect. .. Vaccines: Up-to-date with COVID vaccine, flu vaccine and needs new tetanus vaccine [facility] Medical History Attention deficit hyperactivity disorder (ADHD), combined type Allergic rhinitis Closed left femoral fracture Urinary retention Rheumatoid arthritis Asthma Crohn's disease Left hip pain Surgical History Hx of colonoscopy S/P arthrocentesis Family History Mother Family history of rheumatoid arthritis Rheumatoid arthritis Father CHF (congestive heart failure) Maternal Grandmother Crohn's colitis Social History (Updated 09/26/24 @ 10:54 by Celestino Ricketts PA-C) Household Members: None Housing: Apartment Do you presently have visiting nurse or other home services: No Alcohol intake: current Alcohol intake frequency: holidays/special occasions only Patient Tobacco Use Status: Never used Tobacco Tobacco use type: Cigarette e-Cigarette/Vaping Use: Former Use Substance Use Type: Marijuana Advance Directives Date on File: 12/28/22 service: No Current occupational status: employed 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 1. Little interest or pleasure in doing things: several days 2. Feeling down, depressed, or hopeless: several days 3. Trouble falling or staying asleep, or sleeping too much: several days 4. Feeling tired or having little energy: several days 5. Poor appetite or overeating: nearly every day 6. Feeling bad about yourself - or that you are a failure or have let yourself or your family down: not at all 7. Trouble concentrating on things, such as reading the newspaper or watching television: not at all 8. Moving or speaking so slowly that other people could have noticed. Or the opposite - being so fidgety or restless that you have been moving around a lot more than usual: not at all 9. Thoughts that you would be better off or of hurting yourself in some way: not at all Total score: 7 Depression Screening Interpretation: Positive Depression Screening Follow-up: Existing condition Depression Screening Done: Yes 22304 - PHQ-9 Billing: Yes Source: Developed by Drs. Rigo Palmer, Danika Palumbo, Kiran Mazariegos and colleagues, with an educational neno from [employer]. Thrive Questionnaire Date Thrive assessed: 09/26/24 I am a: Patient What is your living situation today?: I have a steady place to live Within the past 12 months, did the food you bought not last and you didn't have the money to get more?: Never true Within the past 12 months, did you worry whether your food would run out before you got money to buy more?: Never true Do you have trouble paying for medicines?: No Do you have trouble getting transportation to medical appointments?: No Do you have trouble paying your heating and electricity bill?: No Do you have trouble taking care of your child, family member or friend?: No Do you have trouble with day-to-day activities such as bathing, preparing meals, shopping, managing finances, etc.?: No Are you currently unemployed and looking for a job?: No Are you interested in more education?: Yes Please select the resources that you would like help with: None Currently or been in a relationship where the following occur: No concerns re ported THRIVE Score: 0 AUDIT C Alcohol Use Questionnaire (AUDIT-C) 1. How often do you have a drink containing alcohol?: 2-4 times a month 2. How many drinks containing alcohol do you have on a typical day when you are drinking?: 1 or 2 3. How often do you have six or more drinks on one occasion?: Never Total Score: 2 JANNA-7 AMB Questionnaire JANNA-7 Date JANNA - 7 assessed: 09/26/24 Feeling nervous, anxious, or on edge: 1 = Several days Not being able to stop or control worryin = Not at all Worrying too much about different things: 0 = Not at all Trouble relaxin = Not at all Being so restless that it is hard to sit still: 0 = Not at all Becoming easily annoyed or irritable: 0 = Not at all Feeling afraid as if something awful might happen: 3 = Nearly every day Total JANNA-7 score (0-4 normal; 5-9 mild; 10-14 moderate; 15-21 severe): 4 Source: Developed by Drs. Rigo Palmer, Danika Palumbo, Kiran Mazariegos and colleagues, with an educational neno from [employer]. JANNA-7 Assessment Billing JANNA-7 Assessment Tool: JANNA-7 Assessment 91093 Review of Systems Const Denies body aches, Denies chills, Denies excessive sweating, Denies fatigue, Denies fever(s) and Denies headache(s) Eyes Denies blurry vision ENT Denies dysphagia, Denies vertigo, Denies dizziness, Denies headache(s), Denies hearing loss and Denies tinnitus Card Denies chest pain, Denies chest pain with activity, Denies syncope, Denies irregular heart rhythm and Denies dyspnea Resp Denies chest congestion, Denies cough, Denies hemoptysis, Denies dyspnea and Denies wheezing GI Denies abdominal pain, Denies melena, Denies hematochezia, Denies coffee ground emesis, Denies dysphagia, Denies diarrhea, Denies nausea and Denies vomiting Denies difficulty urinating, Denies dysuria, Denies urinary frequency, Denies urinary hesitancy and Denies urinary urgency Musc Denies arthralgias, Denies limited range of motion, Denies muscle cramps and Denies muscle weakness Skin/Breast Denies rash and Denies skin ulcer Neuro Denies Abnormal speech present, Denies confusion, Denies vertigo, Denies dizziness, Denies syncope, Denies headache(s), Denies memory loss and Denies seizure-like activity Psych Denies anxiety, Denies confusion, Denies depression, Denies memory loss, Denies panic attacks and Denies paranoia Endo Denies excessive sweating, Denies fatigue, Denies flushing, Denies polydipsia and Denies polyuria Aller/Immun Denies wheezing Physical exam (Primary Care) Vital Signs: Last Vital Signs Temp 97 F 09/26/24 10:19 Pulse 90 09/26/24 10:19 BP 118/74 09/26/24 10:19 Pulse Ox 98 09/26/24 10:19 Oxygen Delivery Method Room Air 09/26/24 10:19 BMI result Body Mass Index 23.9 Tobacco/Smoking Status: Tobacco use Status Tobacco use date assessed 05/18/24 09/26/24 10:21 Patient Tobacco Use Status Never used Tobacco 09/26/24 10:54 Tobacco use type Cigarette 09/26/24 10:54 e-Cigarette/Vaping Use Former Use 09/26/24 10:54 PHQ-9: PHQ-9 Score PHQ-9: Total score 7 09/26/24 10:35 Depression Screening Interpretation: Positive Depression Screening Follow-up: Existing condition Thrive Assessment: Date of Thrive Assessment Date Thrive assessed 09/26/24 09/26/24 10:21 Currently or been in a relationship where the following occur: No concerns reported Const General: cooperative, comfortable, no acute distress, alert and awake; No confusion Orientation/consciousness: oriented to person, oriented to place, patient oriented x3 and No confusion HENMT Head: Yes normocephalic Ears: external ears normal and TM's normal bilaterally Face and sinus: No sinus tenderness Mouth: Normal oral and palatal mucosa present and tongue normal Teeth and gingiva: dentition normal and gingiva normal Throat: Yes posterior oropharynx normal, Yes tonsils normal and Yes uvula midline Eyes Conjunctivae: conjunctivae normal Sclerae: sclerae normal Pupils: Equal, round and reactive pupils present EOM: EOMs intact bilaterally Direct Ophthalmoscopy: No no photophobia Neck Neck: Yes no lymphadenopathy, No tender and Yes no JVD Thyroid: Thyroid normal Carotids: no bruits Chest Chest palpation & inspection: no tenderness Resp Effort & Inspection: normal respiratory effort, no audible wheezes, not labored and no stridor Auscultation: no crackles, no rales, no rhonchi and no wheezes Cardio Jugular venous distension: no JVD Rate: regular rate, not bradycardic and not tachycardic Rhythm: regular rhythm Bruits: no carotid bruits Peripheral pulses: Peripheral pulses 2+ throughout GI Inspection: Yes normal to inspection, No abdominal wall ecchymosis and No visible herniation Palpation (GI): Soft to palpation, nontender, no guarding, not rigid and No hepatosplenomegaly present Auscultation: normoactive bowel sounds General: Yes no CVA tenderness Back/Spine/Pelvis Back: no CVA tenderness and No back tenderness Cervical Spine: cervical ROM normal Thoracic/Lumbar Spine: thoracic and lumbar spine normal to inspection, straight leg raise negative bilaterally, No thoraco-lumbar ROM limited and No lumbar spinal tenderness Skin Lesions: no lesions Rashes: no rashes Wounds: no wounds Neuro General: oriented to person, oriented to place, patient oriented x3, CN's II-XI intact bilaterally and No confusion Cranial nerves: Yes Equal, round and reactive pupils present and Yes Normal accommodation reflex present Cognition (Neuro): normal cognition Speech: No Abnormal speech present Gait exam (Neuro): Normal gait present Motor exam (neuro): 5/5 motor strength present throughout Extrem Right upper extremity: full ROM; no cyanosis Left upper extremity: full ROM; no cyanosis Right lower extremity: no edema Left lower extremity: no edema Psych Appearance: grossly normal Mental Status: mental status grossly normal Affect: normal affect Attitude: cooperative Thought process: Normal thought process present Coding Level of Care Code Est Pt Prev Care 18-39y(72503) Diagnoses Annual physical exam Z00.00 JANNA (generalized anxiety disorder) F41.1 Crohn's disease with complication, unspecified gastrointestinal tract location K50.919 Digestive disease complication type: unspecified complication Gastrointestinal tract location: unspecified location Additional Codes JANNA-7 Assessment Billing - JANNA-7 Assessment Tool: JANNA-7 Assessment 67807 ([id number]) PHQ-9 - 49375 - PHQ-9 Billing: Yes ([id number]) Assessment & Plan Assessment & Plan (1) Annual physical exam: Code(s): Z00.00 - Encounter for general adult medical examination without abnormal findings Category: Medical Plan: as per hpi (2) JANNA (generalized anxiety disorder): Code(s): F41.1 - Generalized anxiety disorder Category: Medical Plan: Patient's anxiety seems to be fairly well controlled, he has been more anxious as of late due to state of the world. Continues on Lexapro 5 mg daily. (3) Crohn's disease: Code(s): K50.90 - Crohn's disease, unspecified, without complications Category: Medical Qualifiers: Digestive disease complication type: unspecified complication Gastrointestinal tract location: unspecified location Qualified Code(s): K50.919 - Crohn's disease, unspecified, with unspecified complications Plan: Patient reports his Crohn's disease has been really well managed with current dose of Humira. He is followed by [facility]. Medications: Changed From escitalopram oxalate (Lexapro) 5 mg PO DAILY 90 tabs 1RF F41.1 - Generalized anxiety disorder To escitalopram oxalate (Lexapro) 5 mg PO DAILY 90 tabs 1RF 90 days F41.1 - Generalized anxiety disorder
[2024-09-26 10:19] VITALS: BP 118/74; PULSE 90; TEMP 36.1; O2SAT 98; BMI 23.9
== END 2024-09-26 11:04 | disposition home or self-care (01) ==
LOC: HO.HMCH 10:12
PROVIDERS: PCP Internal Medicine; Visit Provider Physician Assistant
DX: Z00.00 Encounter for general adult medical examination without abnormal findings (principal); F41.1 Generalized anxiety disorder; K50.919 Crohn's disease, unspecified, with unspecified complications

== ENCOUNTER → 2024-09-26 10:11 | Outpatient (BNVA) | payer OTHER, SELFPAY | PROVIDERS: PCP Internal Medicine; Visit Provider Physician Assistant | DX: Z00.00 Encounter for general adult medical examination without abnormal findings (principal); E55.9 Vitamin D deficiency, unspecified; F41.1 Generalized anxiety disorder; J45.909 Unspecified asthma, uncomplicated; K50.919 Crohn's disease, unspecified, with unspecified complications | CPT/HCPCS: 96127; 99395 ==

== ENCOUNTER 2024-12-28 15:25 | Outpatient (REF) | payer OTHER, SELFPAY ==
[2024-12-28 16:02] LABS: Hematocrit 42.5 % (42.0-52.0); Hemoglobin 14.4 g/dl (14.0-18.0); Mean Corpuscular HGB Conc 33.9 g/dl (31.0-36.0); Mean Corpuscular Hemoglobin 30.7 pg (27.0-33.0); Mean Corpuscular Volume 90.6 fL (80.0-98.0); NRBC Abs Auto 0.000 X10*3/uL (0.0-0.012); NRBC Pct Auto 0.0 /100WBC (0.0-0.2); Platelet Count 293 X10*3/uL (160-400); Red Blood Count 4.69 X10*6/uL (4.60-5.80); White Blood Count 5.7 X10*3/uL (4.8-10.8)
[2024-12-28 16:34] LABS: Alanine Aminotransferase 74 U/L (0-40); Albumin Level 4.7 g/dL (3.5-5.0); Alkaline Phosphatase 55 U/L (39-117); Anion Gap 9 (12-20); Aspartate Amino Transferase 43 U/L (5-37); Blood Urea Nitrogen 12 mg/dL (9-16); Calcium 9.3 mg/dL (8.4-10.2); Carbon Dioxide 31 mmol/L (22-29); Chloride 104 mmol/L (96-108); Cholesterol 194 mg/dL (<200); Estimated Glomerular Filt Rate > 60; HDL Cholesterol 35 mg/dL (>40); Iron 85 mcg/dL (45-160); Percent Iron Saturation 35 % (15-50); Potassium 4.2 mmol/L (3.3-5.1); Sodium 140 mmol/L (135-145); Total Iron Binding Capacity 243 mcg/dL (228-428); Total Protein 7.3 g/dL (6.5-8.0); Triglycerides 195 mg/dL (<150); Unsaturated Iron Binding 158 ug/dL
[2024-12-28 17:03] LABS: Folate 8.9 ng/mL (> or = 4.0); Vitamin B12 583 pg/mL (200-900)
== END 2024-12-28 15:26 | disposition home or self-care (01) ==
LOC: HO.LAB 15:25
PROVIDERS: PCP Internal Medicine; Visit Provider Internal Medicine
DX: R74.01 Elevation of levels of liver transaminase levels (principal); K50.919 Crohn's disease, unspecified, with unspecified complications
CPT/HCPCS: 36415; 80053; 80061; 82248; 82306; 82607; 82746; 83540; 85027

== ENCOUNTER 2025-02-26 08:44 | Outpatient (REF) | payer OTHER, SELFPAY ==
--- NOTE | ~2025-02-26 | US_ITS ---
CLINICAL HISTORY: R74.01 - Elevation of levels of liver transaminase levels US abdomen complete Comparison: CT abdomen 11/24/2023 Findings: Visualized pancreas is normal. Aorta and inferior vena cava are normal caliber. The liver is normal in size and reveals perhaps mild increased echogenicity, raising the possibility of steatosis. Poorly defined somewhat geographic hypoechoic areas (for example, 2 cm hypoechoic area within right hepatic lobe near inferior vena cava and hepatic vein confluence) suggest areas of focal fatty sparing.. Right lobe length is 12.9 cm. There is no intrahepatic bile duct dilatation. The common duct is 2 mm in diameter. The gallbladder is normal. There is no sonographic Canales sign. The main portal vein is antegrade The right kidney is normal, 9.0 cm in length. The left kidney is normal, 8.0 cm in length. The spleen is normal, 8.5 cm in length. Impression: 1. Findings suggesting mild hepatic steatosis. Geographic hypoechoic areas measuring up to 2 cm are likely related to areas of focal fatty sparing, however other hepatic lesions not entirely excluded. Therefore consider further characterization with MRI. This document has been electronically signed by: Thomas Driver MD on 02/26/2025 17:20:20
== END 2025-02-26 08:45 | disposition home or self-care (01) ==
LOC: HO.US 08:44
PROVIDERS: PCP Internal Medicine; Visit Provider Internal Medicine
DX: R74.01 Elevation of levels of liver transaminase levels (principal)
CPT/HCPCS: 76700

== ENCOUNTER → 2025-02-26 08:49 | Outpatient (BNV) | payer OTHER, SELFPAY | PROVIDERS: PCP Internal Medicine; Visit Provider Radiology Diagnostic Radiology | DX: R74.01 Elevation of levels of liver transaminase levels (principal) | CPT/HCPCS: 76700 ==

== ENCOUNTER 2025-02-28 11:29 | Outpatient (AMB) | payer OTHER, SELFPAY ==
--- NOTE | 2025-02-28 11:38 | MHC.OFFVIS ---
Vital Signs 02/28/25 11:39 Height 5 ft 9 in Weight 170 lb BMI 25.1 BP 147/77 H Blood Pressure Location Lt brachial Position Sitting Pulse 86 Intake Visit Reasons: 6 mo f/u Intake Note: Patient follow up for Crohn's disease and lab results. The patient did not have stool tests done. Patient denies any GI issues. Mine Patrol Required: No Accompanied by: Self / Same As Patient Allergies cefaclor (From Ceclor) Allergy (Unknown, Verified 02/28/25 11:38) Rash Pertussis Vaccines Allergy (Unknown, Verified 02/28/25 11:38) Hives chlorine Allergy (Unknown, Uncoded 09/26/24 10:32) hives HPI Comments Details: This is a 37 y.o M with PMH of Crohns who has been referred here to establish care. Pt was prevously in [facility] and moved to [place] in 2020 however has not been seen by a GI locally. IBD history: Type: Crohns Location: Small intestine Age/year of diagnosis: 2006; 19 y.o (was having bloody diarrhea, abd pain and fatigue) Previous medications: mesalamine oral ([id number]), Entocort intermittent courses, Started humira 2011 Current medications: Humira q2w (last dose 05/15/2023) Prev surgeries: None Recent endoscopy: Recalls [address] Victoriano Roblero ([facility]) EIM: None Fam hx: Grandmother - Crohns. Current sx: No abd pain. Has 1-2 BMs/day which are soft with occ runs mitra related to diet. No blood in stool. No night time sx. Some urgency. Does not smoke. Drinks infrequently. No NSAID use. 08/17/23 - Colonoscopy: Mucosa: Normal to cecum and terminal ileum. T.I was intubated 20 cm deep and appeared endoscopically normal. q10 cm cold forceps biopsies were taken from the colon and sent for histology for dysplasia screening. Protruding lesions: Medium internal hemorrhoids [without] stigmata of recent bleeding. Impression: 1. Normal colon and terminal ileum mucosa 2. Internal hemorrhoids Path: A. Colon, 70 cm, biopsy: Colonic mucosa within normal limits. B. Colon, 60 cm, biopsy: Colonic mucosa within normal limits. C. Colon, 50 cm, biopsy: Colonic mucosa within normal limits. D. Colon, 40 cm, biopsy: Focal pericryptal lymphohistiocytic inflammation; otherwise colonic mucosa within normal limits. E. Colon, 30 cm, biopsy: Colonic mucosa within normal limits. F. Colon, 20 cm, biopsy: Colonic mucosa within normal limits. G. Colon, 10 cm, biopsy: Colonic mucosa within normal limits. Comment: The focus of lymphohistiocytic inflammation in part D is likely secondary to crypt injury. Otherwise, no evidence of fully developed chronic injury is present. No dysplasia is seen. 08/25/23: No acute gastrointestinal complaints. He is still worried about ? toxicity from vitamin-D. A repeat level was ordered but patient has not had the chance to get this done yet. 02/23/24: Routine 6 month follow up. Cont on Humira. Due for labs which will be ordered today. 08/30/24: Seen as shceduled follow up. Reports feeling well. No abd pain, N,V,D. Some certain foods trigger abd discomfort such as bananas, dairy. Continues humira q2w. Typically takes it on a wednesday. Reports got a letter from insurance that he MAY need to switch humira to something different but so far has not received any follow up letter to that. No such notification received on our end. Laboratory Tests 06/13/24 12:05 Adalimumab Level 18.0 Anti-Adalimumab Ab <10 02/28/25: Presenting for a routine six-month follow-up for Crohn's disease. He reports well-controlled disease. No diarrhea or hematochezia. Fecal calpro was ordered at last visit but insurance does not cover this. US RUQ reviewed with the pt. THis was ordered for elevated LFTs. Findings suggestive of a fatty liver with some poorly defined areas. An MRI has been ordered. The patient has had MRIs in the past without issue and denies any known kidney disease or a history of reaction to MRI contrast. Lab work from December 28 indicated hyperlipidemia. The same labs also revealed a vitamin D deficiency, and the patient began taking prescribed weekly supplements in January. --- Pt was informed and consented to the use of ambient scribe for this encounter. --- [facility] Medical History Attention deficit hyperactivity disorder (ADHD), combined type Allergic rhinitis Closed left femoral fracture Urinary retention Rheumatoid arthritis Asthma Crohn's disease Left hip pain Surgical History Hx of colonoscopy S/P arthrocentesis Family History Mother Family history of rheumatoid arthritis Rheumatoid arthritis Father CHF (congestive heart failure) Maternal Grandmother Crohn's colitis Social History Household Members: None Housing: Apartment Do you presently have visiting nurse or other home services: No Alcohol intake: current Alcohol intake frequency: holidays/special occasions only Patient Tobacco Use Status: Never used Tobacco Tobacco use type: Cigarette e-Cigarette/Vaping Use: Former Use Substance Use Type: Marijuana Advance Directives Date on File: 12/28/22 service: No Current occupational status: employed 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 Cognitive needs: Yes Hearing needs: No Vision needs: Yes (glasses) Review of Systems Const All systems reviewed & are unremarkable except as noted in HPI and below Physical Exam Vital Signs: Last Vital Signs Pulse 86 02/28/25 11:39 BP 147/77 H 02/28/25 11:39 BMI result Body Mass Index 25.1 No apparent distress Nonicteric Abdomen soft, nondistended Alert and oriented x3, uses cane to ambulate Assessment & Plan Assessment & Plan (1) Crohn's disease: Code(s): K50.90 - Crohn's disease, unspecified, without complications Category: Medical Qualifiers: Digestive disease complication type: unspecified complication Gastrointestinal tract location: unspecified location Qualified Code(s): K50.919 - Crohn's disease, unspecified, with unspecified complications (2) Transaminitis: Code(s): R74.01 - Elevation of levels of liver transaminase levels Category: Medical (3) Abnormal ultrasound: Code(s): R93.89 - Abnormal findings on diagnostic imaging of other specified body structures Category: Medical Plan 1. Crohns disease - Disease and therapy: In deep remission. Excellent humira levels in June 2024. - continue Humira 40 mg s/c q2w - Check CBC, CMP, fecal calpro - Check ADA levels 1-2 days BEFORE next s/c shot. - Nutrition: Iron folate and B12 in normal limits. - Immunization: Advised to stay up to date on age related vaccinations including Covid-19 and Influenza. Avoid live vaccines. - Bone Health: No predisposing factors for osteoporosis such as steroid use or fam hx. Vit D was low. On supplementation, will recheck. - Cancer prevention: IBD dysplasia: Next colonoscopy due in 2025. 2. Elevated LFTs: Likely from steatotic liver disease. Plan: - Recheck lipids. Low threshold to start statin if cont to be elevated - Labs ordered to r/o other causes of chronic liver disease. - MRI liver protocol and AFP ordered Follow up in 4 months ? Orders: Orders MR abdomen wo/w con 02/28/25 R74.01 - Elevation of levels of liver transaminase levels, R93.89 - Abnormal findings on diagnostic imaging of other specified body structures Hemoglobin A1c 4 Weeks R74.01 - Elevation of levels of liver transaminase levels Alpha 1 Anti-trypsin 4 Weeks R74.01 - Elevation of levels of liver transaminase levels Ceruloplasmin 4 Weeks R74.01 - Elevation of levels of liver transaminase levels Lipid Panel 4 Weeks R74.01 - Elevation of levels of liver transaminase levels Phosphatidylethanol, Blood 4 Weeks R74.01 - Elevation of levels of liver transaminase levels Smooth Muscle Antibody 4 Weeks R74.01 - Elevation of levels of liver transaminase levels Transglutaminase IgA 4 Weeks R74.01 - Elevation of levels of liver transaminase levels Immunoglobulin A 4 Weeks R74.01 - Elevation of levels of liver transaminase levels Vitamin D 25-OH Total 4 Weeks R74.01 - Elevation of levels of liver transaminase levels Adalimumab+Ab 02/28/25 K50.919 - Crohn's disease, unspecified, with unspecified complications Liver Panel 4 Weeks R74.01 - Elevation of levels of liver transaminase levels Alpha Fetoprotein 4 Weeks R74.01 - Elevation of levels of liver transaminase levels NA Reflex Titer and Pattern 4 Weeks R74.01 - Elevation of levels of liver transaminase levels Liver Kidney Microsomal Ab 4 Weeks R74.01 - Elevation of levels of liver transaminase levels Prothrombin Time INR 4 Weeks R74.01 - Elevation of levels of liver transaminase levels TSH reflex Free T4 4 Weeks R74.01 - Elevation of levels of liver transaminase levels Coding Level of Care Code Complex visit Add On G2211 Diagnoses Crohn's disease with complication, unspecified gastrointestinal tract location K50.919 Digestive disease complication type: unspecified complication Gastrointestinal tract location: unspecified location Transaminitis R74.01 Abnormal ultrasound R93.89
[2025-02-28 11:39] VITALS: BP 147/77; PULSE 86; BMI 25.1
== END 2025-02-28 12:03 | disposition home or self-care (01) ==
LOC: HO.HGI 11:30
PROVIDERS: PCP Internal Medicine; Visit Provider Internal Medicine
DX: K50.919 Crohn's disease, unspecified, with unspecified complications (principal); R74.01 Elevation of levels of liver transaminase levels; R93.89 Abnormal findings on diagnostic imaging of other specified body structures
CPT/HCPCS: 99213

== ENCOUNTER → 2025-02-28 11:29 | Outpatient (BNVA) | payer OTHER, SELFPAY | PROVIDERS: PCP Internal Medicine; Visit Provider Internal Medicine | DX: K50.919 Crohn's disease, unspecified, with unspecified complications (principal); R74.01 Elevation of levels of liver transaminase levels; R93.89 Abnormal findings on diagnostic imaging of other specified body structures | CPT/HCPCS: 99212 ==

== ENCOUNTER 2025-04-02 10:40 | Outpatient (AMB) | payer OTHER, SELFPAY ==
[2025-04-02 10:43] VITALS: BP 140/86; PULSE 89; O2SAT 98; BMI 24.9
--- NOTE | 2025-04-02 10:43 | A.OFFPC_ITS ---
Vital Signs 04/02/25 10:43 Height 5 ft 9 in Weight 168 lb 8 oz BMI 24.9 BP 140/86 H Blood Pressure Location Lt brachial Position Sitting Pulse 89 Pulse Source Pulse Oximeter Pulse Oximetry (%) 98 Oxygen Delivery Method Room Air Intake Visit Reasons: f/u JANNA with PCP Dr. Smith Travel Manager Required: No Accompanied by: Self / Same As Patient Allergies cefaclor (From Ceclor) Allergy (Unknown, Verified 04/02/25 11:09) Rash Pertussis Vaccines Allergy (Unknown, Verified 04/02/25 11:09) Hives chlorine Allergy (Unknown, Uncoded 04/02/25 11:09) hives Medication List - Last Reconciled 04/02/25 by Chip Smith MD acetaminophen 650 mg PO Q6H PRN adalimumab (Humira(CF) Pen) 40 mg (0.4 mL) subcut Q2W albuterol sulfate 90 mcg/actuation 2 puffs inhalation Q6H PRN atorvastatin 20 mg PO BEDTIME cholecalciferol (vitamin D3) 1,250 mcg PO QWEEK 90 days diphenhydramine HCl (Benadryl Allergy) 25 mg PO BEDTIME PRN escitalopram oxalate (Lexapro) 5 mg PO DAILY 90 days fluticasone propionate 50 mcg/actuation 1 spray intranasal DAILY ibuprofen 400 mg PO Q6H PRN oxymetazoline 0.05% 2 sprays intranasal Q12H PRN Tobacco use date assessed: 04/02/25 Dental Screening Dental Screen Date: 04/02/25 Did you have a dental visit in the last 12 months?: No Did you have a dental problem in the last 6 months where you did not have access to dental care?: No Was dental information given to patient?: No HPI f/u JANNA with PCP Dr. Smith HPI Details - The patient is a 39 year old male pres enting for a follow-up visit for management of chronic conditions. - Anxiety: The patient takes escitalopra m on an as-needed basis for his anxiety and trouble sleeping, finding it effective. - A prior concern for ADHD was ruled out , with anxiety considered the more likely diagnosis. - His last visit with his mental health provider, Macy Small, was in July 2024 - patient feels that he is doing well and no longer needs continuing follow up at this time - Hyperlipidemia: Laboratory results fro m December 2024 showed an increase in LDL cholesterol by 15-16 points and a decrease in triglycerides. He was supposed to get his follow up labs done prior to his appointment today but was not able to do so yet and he will try to get these done JANEL - The patient reports improved adherence with his Atorvastatin Rx - Crohn's Disease: The patient is on kayy g-term Humira for his Crohn's disease, which is managed by GI - Dr. Tavarez. - A previous leg issue was determined to be a complication of Crohn's disease, and rheumatoid arthritis was ruled out by Dr. Fernando, after which rheumatology follow-up was discontinued - Asthma: The patient has an inhaler but has not needed to use it recently. - Other Medical History: On a couple of occasions, his blood sugar was noted to be on the high side, which he attributes to consuming an energy drink or a donut prior to testing. - He had his annual physical done back i n September 2024 [facility] Medical History (Updated 04/02/25 @ 23:08 by Chip Smith MD) Elevated LFTs Mixed hyperlipidemia Attention deficit hyperactivity disorder (ADHD), combined type Allergic rhinitis Closed left femoral fracture Urinary retention Rheumatoid arthritis Asthma Crohn's disease Left hip pain Surgical History Hx of colonoscopy S/P arthrocentesis Family History Mother Family history of rheumatoid arthritis Rheumatoid arthritis Father CHF (congestive heart failure) Maternal Grandmother Crohn's colitis Social History Household Members: None Housing: Apartment Do you presently have visiting nurse or other home services: No Alcohol intake: current Alcohol intake frequency: holidays/special occasions only Patient Tobacco Use Status: Never used Tobacco Tobacco use type: Cigarette e-Cigarette/Vaping Use: Former Use Substance Use Type: Marijuana Advance Directives Date on File: 12/28/22 service: No Current occupational status: employed 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 1. Little interest or pleasure in doing things: several days 2. Feeling down, depressed, or hopeless: several days 3. Trouble falling or staying asleep, or sleeping too much: several days 4. Feeling tired or having little energy: several days 5. Poor appetite or overeating: nearly every day 6. Feeling bad about yourself - or that you are a failure or have let yourself or your family down: not at all 7. Trouble concentrating on things, such as reading the newspaper or watching television: not at all 8. Moving or speaking so slowly that other people could have noticed. Or the opposite - being so fidgety or restless that you have been moving around a lot more than usual: not at all 9. Thoughts that you would be better off or of hurting yourself in some way: not at all Total score: 7 Depression Screening Interpretation: Positive Depression Screening Follow-up: Existing condition and In treatment Depression Screening Done: Yes 94831 - PHQ-9 Billing: Yes Source: Developed by Drs. Rigo Palmer, Danika Palumbo, Kiran Mazariegos and colleagues, with an educational neno from [employer]. Thrive Questionnaire Date Thrive assessed: 04/02/25 I am a: Patient What is your living situation today?: I have a steady place to live Within the past 12 months, did the food you bought not last and you didn't have the money to get more?: Never true Within the past 12 months, did you worry whether your food would run out before you got money to buy more?: Never true Do you have trouble paying for medicines?: No Do you have trouble getting transportation to medical appointments?: No Do you have trouble paying your heating and electricity bill?: No Do you have trouble taking care of your child, family member or friend?: No Do you have trouble with day-to-day activities such as bathing, preparing meals, shopping, managing finances, etc.?: No Are you currently unemployed and looking for a job?: No Are you interested in more education?: Yes Please select the resources that you would like help with: None Currently or been in a relationship where the following occur: No concerns reported THRIVE Score: 0 AUDIT C Alcohol Use Questionnaire (AUDIT-C) 1. How often do you have a drink containing alcohol?: 2-4 times a month 2. How many drinks containing alcohol do you have on a typical day when you are drinking?: 1 or 2 3. How often do you have six or more drinks on one occasion?: Never Total Score: 2 Score Reviewed/Action Taken: Yes JANNA-7 AMB Questionnaire JANNA-7 Date JANNA - 7 assessed: 04/02/25 Feeling nervous, anxious, or on edge: 1 = Several days Not being able to stop or control worryin = Not at all Worrying too much about different things: 0 = Not at all Trouble relaxin = Not at all Being so restless that it is hard to sit still: 0 = Not at all Becoming easily annoyed or irritable: 0 = Not at all Feeling afraid as if something awful might happen: 3 = Nearly every day Total JANNA-7 score (0-4 normal; 5-9 mild; 10-14 moderate; 15-21 severe): 4 Source: Developed by Drs. Rigo Palmer, Danika Palumbo, Kiran Mazariegos and colleagues, with an educational neno from [employer]. JANNA-7 Assessment Billing JANNA-7 Assessment Tool: JANNA-7 Assessment 56168 Review of Systems Const Denies chills, Denies fatigue, Denies fever(s) and Denies headache(s) ENT Denies dysphagia, Denies dizziness, Denies otalgia, Denies headache(s), Denies neck pain, Denies odynophagia and Denies sore throat Card Denies chest pain, Denies irregular heart rhythm and Denies dyspnea Resp Denies chest congestion, Denies cough and Denies dyspnea GI Denies abdominal pain, Denies constipation, Denies dysphagia, Denies diarrhea, Denies nausea, Denies odynophagia and Denies vomiting Denies difficulty urinating, Denies nocturia and Denies urinary frequency Musc Denies back pain, Denies arthralgias and Denies neck pain Skin/Breast Denies rash Neuro Denies dizziness and Denies headache(s) Psych Denies anxiety (controlled) Endo Denies fatigue Physical exam (Primary Care) Vital Signs: Last Vital Signs Pulse 89 04/02/25 10:43 BP 140/86 H 04/02/25 10:43 Pulse Ox 98 04/02/25 10:43 Oxygen Delivery Method Room Air 04/02/25 10:43 BMI result Body Mass Index 24.9 Tobacco/Smoking Status: Tobacco use Status Tobacco use date assessed 04/02/25 04/02/25 10:50 Patient Tobacco Use Status Never used Tobacco 04/02/25 10:50 Tobacco use type Cigarette 04/02/25 10:50 e-Cigarette/Vaping Use Former Use 04/02/25 10:50 PHQ-9: PHQ-9 Score PHQ-9: Total score 7 04/02/25 13:10 Depression Screening Interpretation: Positive Depression Screening Follow-up: Existing condition and In treatment Thrive Assessment: Date of Thrive Assessment Date Thrive assessed 04/02/25 04/02/25 10:50 Currently or been in a relationship where the following occur: No concerns reported Const General: no acute distress and alert HENMT Throat: Yes posterior oropharynx normal and Yes tonsils normal Neck Neck: Yes supple and No lymphadenopathy Thyroid: Thyroid normal Resp Auscultation: clear to auscultation bilaterally, no rales and no wheezes Cardio Rate: regular rate Rhythm: regular rhythm Heart sounds: no murmurs GI Palpation (GI): Soft to palpation and nontender Auscultation: normal bowel sounds General: Yes no CVA tenderness Back/Spine/Pelvis Back: no CVA tenderness Thoracic/Lumbar Spine: No lumbar spinal tenderness Skin Rashes: no rashes Extrem General: Yes no clubbing, cyanosis or edema Results Reviewed Results Reviewed: Laboratory Tests 08/30/24 12/28/24 10:44 15:34 WBC 5.7 Hgb 14.4 Hct 42.5 Plt Count 293 Sodium 140 Potassium 4.2 Estimated GFR > 60 Fasting Glucose 85 Calcium 9.3 AST 43 H ALT 74 H Triglycerides 195 H Cholesterol 194 LDL Cholesterol, Calc 120 H HDL Cholesterol 35 L Vitamin B12 583 25-OH Vitamin D Total 27.0 L TSH 1.38 Coding Level of Care Code Est Pt Level 4 (63884) Diagnoses Crohn's disease with complication, unspecified gastrointestinal tract location K50.919 Gastrointestinal tract location: unspecified location Digestive disease complication type: unspecified complication Mixed hyperlipidemia E78.2 Elevated LFTs R79.89 Vitamin D deficiency E55.9 Mild intermittent asthma without complication J45.20 Asthma severity: mild Asthma persistence: intermittent Asthma complication type: uncomplicated Allergic rhinitis, unspecified seasonality, unspecified trigger J30.9 Allergic rhinitis trigger: unspecified Allergic rhinitis seasonality: unspecified JANNA (generalized anxiety disorder) F41.1 Additional Codes JANNA-7 Assessment Billing - JANNA-7 Assessment Tool: JANNA-7 Assessment 75208 ([id number]) PHQ-9 - 80942 - PHQ-9 Billing: Yes ([id number]) Assessment & Plan Assessment & Plan (1) Crohn's disease: Code(s): K50.90 - Crohn's disease, unspecified, without complications Category: Medical Qualifiers: Gastrointestinal tract location: unspecified location Digestive disease complication type: unspecified complication Qualified Code(s): K50.919 - Crohn' s disease, unspecified, with unspecified complications Plan: Patient's Crohn's disease has been in remission on Humira for a while now - to continue on Humira injections 40 mg SQ every 2 weeks He will be due for repeat colonoscopy in 2025 Follow up with GI as scheduled (2) Mixed hyperlipidemia: Code(s): E78.2 - Mixed hyperlipidemia Category: Medical Plan: Patient is advised that his cholesterol level, particularly his TG level, was elevated on his labs done a few months ago He was supposed to get his labs and fasting lipids rechecked BEFORE coming in for his appointment today but he was not able to do so - states that he will try to go and get these done JANEL Reinforced low cholesterol diet Continue Atorvastatin 20 mg Q HS for now Will have him recheck his labs and fasting lipids in 4 months for follow up (3) Elevated LFTs: Code(s): R79.89 - Other specified abnormal findings of blood chemistry Category: Medical Plan: He is advised that his LFTs were also elevated on his previous labs and that these are likely due to his high cholesterol levels or related to his weight Will continue to monitor his LFTs regularly and if it continues to rise, will then send patient for abdominal US for further evaluation (4) Vitamin D deficiency: Code(s): E55.9 - Vitamin D deficiency, unspecified Category: Medical Plan: Continue Vitamin D3 1250 mcg once a week (5) Asthma: Code(s): J45.909 - Unspecified asthma, uncomplicated Category: Medical Qualifiers: Asthma severity: mild Asthma persistence: intermittent Asthma complication type: uncomplicated Qualified Code(s): J45.20 - Mild intermittent asthma, uncomplicated Plan: Controlled Continue Albuterol HFA 2 inhalations Q 6 hours PRN (6) Allergic rhinitis: Code(s): J30.9 - Allergic rhinitis, unspecified Category: Medical Qualifiers: Allergic rhinitis trigger: unspecified Allergic rhinitis seasonality: unspecified Qualified Code(s): J30.9 - Allergic rhinitis, unspecified Plan: Continue Fluticasone 50 mcg nasal spray QD PRN (7) JANNA (generalized anxiety disorder): Code(s): F41.1 - Generalized anxiety disorder Category: Medical Plan: Patient feels that he is doing well with his anxiety overall Continue Escitalopram 5 mg QD He used to also take Bupropion XL 150 mg QD but he stopped taking this a while back Follow up with psychiatry (Macy Small) as scheduled Plan Follow up in 4 months Orders: Orders Lipid Panel 4 Months E78.00 - Pure hypercholesterolemia, unspecified Comprehensive [place]. Panel Fast 4 Months E78.00 - Pure hypercholesterolemia, unspecified
== END 2025-04-02 11:25 | disposition home or self-care (01) ==
LOC: HO.HMCH 10:41
PROVIDERS: PCP Internal Medicine; Visit Provider Internal Medicine
DX: K50.919 Crohn's disease, unspecified, with unspecified complications (principal); E78.2 Mixed hyperlipidemia; R79.89 Other specified abnormal findings of blood chemistry; E55.9 Vitamin D deficiency, unspecified; J45.20 Mild intermittent asthma, uncomplicated; J30.9 Allergic rhinitis, unspecified; F41.1 Generalized anxiety disorder

== ENCOUNTER 2025-04-02 10:40 | Outpatient (REF) | payer OTHER, SELFPAY ==
[2025-04-02 12:11] LABS: INTERNATIONAL NORM RATIO 1.1 (0.9-1.1); Prothrombin Time 13.0 SEC (11.2-13.5)
[2025-04-02 12:43] LABS: Alanine Aminotransferase 91 U/L (0-40); Albumin Level 5.0 g/dL (3.5-5.0); Alkaline Phosphatase 50 U/L (39-117); Aspartate Amino Transferase 51 U/L (5-37); Cholesterol 158 mg/dL (<200); HDL Cholesterol 49 mg/dL (>40); Total Protein 7.5 g/dL (6.5-8.0); Triglycerides 140 mg/dL (<150)
[2025-04-03 08:42] LABS: Immunoglobulin A 316 mg/dL (47-310)
[2025-04-03 13:08] LABS: Anti Nuclear Antibody Screen NEGATIVE (NEGATIVE)
[2025-04-06 23:23] LABS: Liver Kidney Microsomal Ab <=20.0 U (<=20.0)
== END 2025-04-02 10:41 | disposition home or self-care (01) ==
LOC: HO.LAB 10:40
PROVIDERS: PCP Internal Medicine; Visit Provider Internal Medicine
DX: R74.01 Elevation of levels of liver transaminase levels (principal); E78.5 Hyperlipidemia, unspecified; K50.919 Crohn's disease, unspecified, with unspecified complications; E78.2 Mixed hyperlipidemia; R79.89 Other specified abnormal findings of blood chemistry; E55.9 Vitamin D deficiency, unspecified; J45.20 Mild intermittent asthma, uncomplicated; J30.9 Allergic rhinitis, unspecified; F41.1 Generalized anxiety disorder
CPT/HCPCS: 36415; 80061; 80076; 80145; 80321; 82103; 82105; 82306; 82390; 82784; 83520; 84443; 85610; 86015; 86038; 86364; 86376; 96127; 99212

== ENCOUNTER 2025-04-03 14:38 | Outpatient (REF) | payer OTHER, SELFPAY | END 2025-04-03 14:39 | LOC: HO.LAB 14:38 | PROVIDERS: PCP Internal Medicine; Visit Provider Internal Medicine | DX: R74.01 Elevation of levels of liver transaminase levels (principal) | CPT/HCPCS: 36415; 80321; 83036 ==